=== PATIENT | male | born 1970 | race Caucasian/White ===

== ENCOUNTER 2016-09-17 10:10 | Observation (INO) ==
[2016-09-17] MEDS ORDERED: Ondansetron 4 MG/2 ML VIAL IVP ONE (10:22)
[2016-09-17] MEDS ORDERED: Aspirin 81 MG TAB.CHEW PO ONE (10:22)
[2016-09-17] MEDS ORDERED: 0.9 % Sodium Chloride 500 ML IVC ONE (10:22)
[2016-09-17] MEDS: Nitroglycerin 0.4 MG TAB.SUBL SL ONE ×2 (10:29→11:02)
[2016-09-17 10:36] LABS: Basophils % 0.3 %; Eosinophils % 0.2 %; Hematocrit 44.7 % (37.5-50.1); Hemoglobin 15.5 g/dL (12.9-16.9); Immature Granulocytes % 0.3 % (0-4); Immature Platelets 2.8 % (1.1-6.1); Lymphocytes # 1.9 K/mcL (0.6-4.6); Mean Corpuscular HGB Conc 34.7 g/dL (31.6-35.5); Mean Corpuscular Hemoglobin 32.4 pg (28.0-33.3); Mean Corpuscular Volume 93.3 fL (83.0-100.0); Mean Platelet Volume 9.6 fL (9.4-12.4); Monocytes # 0.7 K/mcL (0.0-1.3); Monocytes % 5.1 %; Neutrophils # 10.2 K/mcL (1.6-8.9); Platelet Count 289 K/mcL (140-400); Red Blood Count 4.79 M/mcL (4.19-5.50); Red Cell Distribution Width 12.8 % (11.5-14.5); Segmented Neutrophils % 79.1 %
[2016-09-17 10:47] LABS: INR 1.1; Prothrombin Time 11.5 Seconds (9.4-12.1)
[2016-09-17 10:50] LABS: Activated Partial Thrombo Time 33.5 Seconds (26.0-36.0)
[2016-09-17 10:59] LABS: BUN/Creatinine Ratio 17 (6-26); Blood Urea Nitrogen 16 mg/dL (8-26); Calcium 10.4 mg/dL (8.6-10.8); Carbon Dioxide 26 mEq/L (19-29); Chloride 104 mEq/L (98-109); Glucose 222 mg/dL (70-99); Osmolality,Calculated 302 (280-300); Potassium 4.2 mEq/L (3.5-4.5); Sodium 142 mEq/L (136-145); eGFR For African Americans > 60 (> 60); eGFR For Non-African Americans > 60 (> 60)
--- NOTE | 2016-09-17 12:43 | Emergency Department Note ---
Disposition Clinical Impression: Chest pain of unknown etiology Disposition: Admitted As Inpatient Condition: Fair Time of Disposition: 12:00 Chest Pain HPI - General Chief Complaint: ED Chest Pain Stated Complaint: chest pain Time Seen by Provider: 09/17/16 10:27 Source: patient Limitations: no limitations Vital Signs Reviewed: Yes Nursing Notes Reviewed: Yes - History of Present Illness HPI Narrative: Patient is 46-year-old male. He was history of chest pain requiring and heart catheterization without the point of stents 3 years ago. Patient states he has onset of chest pain acute sudden onset 4 hours ago left-sided chest radiation down left arm. Patient states pain is 8 out of 10 last for an hour. Patient states that it slowly decreased over the next 3 hours 4 out of 10. It is currently 4 out of 10. Patient states that nothing has made it better. Movement makes it worse. Admits to onset of cold diaphoresis at the time of initial onset and nausea without vomiting Patient smokes half pack a day, denies alcohol use and illicit drug use. Has a history of diabetes Onset (ago): hour(s) Severity scale (1-10): 8 - Related Data Home Medications Medication Instructions Recorded Confirmed Metformin [Glucophage] 500 mg PO DAILY 09/17/16 09/17/16 Previous Rx's Medication Instructions Recorded Omeprazole [PriLOSEC] 40 mg PO DAILY #30 capsule. 11/18/15 Allergies Allergy/AdvReac Type Severity Reaction Status Date / Time guaifenesin [From Robitussin] AdvReac Hives Verified 09/26/15 15:25 All systems ED: reviewed and negative except as stated. Constitutional: Denies: fever, chills Eyes: Denies: vision change ENT ED: Denies: throat pain, congestion Cardiovascular: Reports: chest pain. Denies: palpitations, syncope Respiratory: Denies: cough, dyspnea, wheezes Gastrointestinal: Reports: nausea. Denies: abdominal pain, vomiting, diarrhea Musculoskeletal: Denies: back pain, neck pain Neurological: Denies: headache, weakness Psychiatric: Reports: anxiety Endocrine: Reports: fatigue Chest Pain PMH - Past Medical History Medical history: Reports: diabetes, other Surgical history: Reports: appendectomy, cholecystectomy Psychiatric history: Reports: no psych history - Social History Smoking Status: Current every day smoker Alcohol use: Reports: none Drug use: Reports: marijuana Physical Exam - General Limitations: no limitations General appearance: alert - Head Head exam: atraumatic, normocephalic, normal inspection - Eye Eye exam: Present: normal appearance, PERRL, EOMI. Absent: scleral icterus, conjunctival injection - ENT ENT exam: normal exam, normal oropharynx, mucous membranes moist - Neck Neck exam: Present: normal inspection, full ROM, trachea midline. Absent: tenderness, meningismus - Chest Chest inspection: Present: normal inspection, symmetric chest wall rise, tenderness (Left Sided chest wall tenderness to palpation) - Respiratory Respiratory exam: Present: normal lung sounds bilaterally, respiratory distress. Absent: wheezes - Cardiovascular Cardiovascular exam: Present: regular rate, normal rhythm - Abdominal Exam Abdominal exam: Present: soft, Non-Tender, normal bowel sounds. Absent: tenderness, distention, guarding, rebound, rigidity - Extremities Exam Extremities exam: Present: normal inspection, full ROM, tenderness, normal capillary refill. Absent: pedal edema, joint swelling, calf tenderness - Expanded Lower Extremity Exam Lower leg exam: Present: normal inspection, full ROM. Absent: tenderness, swelling, palpable cord, Homans' sign - Back Exam Back exam: Present: normal inspection, full ROM. Absent: tenderness, CVA tenderness (R), CVA tenderness (L) - Neurological Exam Neurological exam: Present: alert, oriented X3, CN II-XII intact - Skin Skin exam: Present: warm, dry, intact, normal color. Absent: diaphoresis Course - Reevaluation(s) Reevaluation #1: Patient concerning signs and symptoms of ACS/PA, PE, aortic dissection, pneumonia. Patient does have some chest wall tenderness reproducible to palpation and history of heavy lifting which since they may be a component of musculoskeletal information. We will try to rule out ACS/PA. Patient has a history of diabetes and prior history of chest pain requiring heart catheterization. Patient states pain is today is equivalent to that. PE is low suspicion secondary to patient's heart rate is less than 100, no history of hemoptysis/DVT or prior PE, no recent trauma or surgery, no hemoptysis, age less than 50. Under PERC rules patient is at very low risk for PE. However this does not completely rule it out. Plan: CBC, BMP, troponin, EKG, chest x-ray admit for cardiac workup. Time: 10:23 Reevaluation #2: Patient has not had elevation of his WBC at 12.9, and patient has an elevated blood dose of 302. Respirations last are unremarkable. Patient's chest x-ray shows discoid atelectasis at the left lung base but no other acute cardiopulmonary disease. EKG showed normal sinus rhythm and no ischemic signs. Patient's heart score equals 1 Patient received sublingual nitroglycerin 3 which reduced patient's pain symptoms 0/10. Patient is currently comfortable. At this time recommended patient be admitted observation and for cardiac evaluation if necessary. Patient understands and agrees to treatment plan Time: 11:30 - Consultations Consultation #1: Dr. Jameson the hospitalist has accepted the patient for admission Time: 12:00 Vital Signs Temperature 97.3 F L 09/17/16 10:13 Pulse Rate 86 09/17/16 10:13 Respiratory Rate 18 09/17/16 10:13 Blood Pressure 144/72 09/17/16 10:13 O2 Sat by Pulse Oximetry 100 09/17/16 10:13 Temperature 98.1 F 09/17/16 18:43 Pulse Rate 74 09/17/16 18:43 Respiratory Rate 16 09/17/16 18:43 Blood Pressure 106/67 09/17/16 18:43 O2 Sat by Pulse Oximetry 99 09/17/16 18:43 Oxygen Delivery Oxygen Delivery Room Air Chest Pain - Lab Data Lab results reviewed: Yes I reviewed the patient's lab results. Lab results narrative: Short CBC 09/17/16 Range/Units 10:25 WBC 12.9 H (4.3-11.1) K/mcL Hgb 15.5 (12.9-16.9) g/dL Hct 44.7 (37.5-50.1) % Plt Count 289 (140-400) K/mcL Neutrophils # 10.2 H (1.6-8.9) K/mcL BMP 09/17/16 Range/Units 10:33 Sodium 142 (136-145) mEq/L Potassium 4.2 (3.5-4.5) mEq/L Chloride 104 (98-109) mEq/L Carbon Dioxide 26 (19-29) mEq/L BUN 16 (8-26) mg/dL Creatinine 0.96 (0.72-1.25) mg/dL Glucose 222 H (70-99) mg/dL Calcium 10.4 (8.6-10.8) mg/dL Cardiac Enzymes 09/17/16 09/17/16 Range/Units 15:51 10:33 Troponin I 0.00 0.00 (0-0.03) ng/mL Result diagrams: 09/17/16 10:25 09/17/16 10:33 Lab Results 09/17/16 09/17/16 09/17/16 Range/Units 10:23 10:23 10:25 WBC 12.9 H (4.3-11.1) K/mcL RBC 4.79 (4.19-5.50) M/mcL Hgb 15.5 (12.9-16.9) g/dL Hct 44.7 (37.5-50.1) % MCV 93.3 (83.0-100.0) fL MCH 32.4 (28.0-33.3) pg MCHC 34.7 (31.6-35.5) g/dL RDW 12.8 (11.5-14.5) % Plt Count 289 (140-400) K/mcL MPV 9.6 (9.4-12.4) fL Immature Gran % 0.3 (0-4) % Seg Neutrophils % 79.1 % Lymphocytes % 15.0 % Monocytes % 5.1 % Eosinophils % 0.2 % Basophils % 0.3 % Neutrophils # 10.2 H (1.6-8.9) K/mcL Lymphocytes # 1.9 (0.6-4.6) K/mcL Monocytes # 0.7 (0.0-1.3) K/mcL Eosinophils # 0.0 (0.0-0.6) K/mcL Basophils # 0.0 (0.0-0.2) K/mcL Immature Plt Fraction 2.8 (1.1-6.1) % PT 11.5 (9.4-12.1) Seconds INR 1.1 APTT 33.5 (26.0-36.0) Seconds D-Dimer 227 (0-500) ng/mLFEU Sodium (136-145) mEq/L Potassium (3.5-4.5) mEq/L Chloride (98-109) mEq/L Carbon Dioxide (19-29) mEq/L BUN (8-26) mg/dL Creatinine (0.72-1.25) mg/dL Est GFR ( Amer) (> 60) Est GFR (Non-Af Amer) (> 60) BUN/Creatinine Ratio (6-26) Glucose (70-99) mg/dL Calculated Osmolality (280-300) Calcium (8.6-10.8) mg/dL Troponin I (0-0.03) ng/mL B-Natriuretic Peptide 27 (0-100) pg/mL 09/17/16 09/17/16 Range/Units 10:33 10:33 WBC (4.3-11.1) K/mcL RBC (4.19-5.50) M/mcL Hgb (12.9-16.9) g/dL Hct (37.5-50.1) % MCV (83.0-100.0) fL MCH (28.0-33.3) pg MCHC (31.6-35.5) g/dL RDW (11.5-14.5) % Plt Count (140-400) K/mcL MPV (9.4-12.4) fL Immature Gran % (0-4) % Seg Neutrophils % % Lymphocytes % % Monocytes % % Eosinophils % % Basophils % % Neutrophils # (1.6-8.9) K/mcL Lymphocytes # (0.6-4.6) K/mcL Monocytes # (0.0-1.3) K/mcL Eosinophils # (0.0-0.6) K/mcL Basophils # (0.0-0.2) K/mcL Immature Plt Fraction (1.1-6.1) % PT (9.4-12.1) Seconds INR APTT (26.0-36.0) Seconds D-Dimer (0-500) ng/mLFEU Sodium 142 (136-145) mEq/L Potassium 4.2 (3.5-4.5) mEq/L Chloride 104 (98-109) mEq/L Carbon Dioxide 26 (19-29) mEq/L BUN 16 (8-26) mg/dL Creatinine 0.96 (0.72-1.25) mg/dL Est GFR ( Amer) > 60 (> 60) Est GFR (Non-Af Amer) > 60 (> 60) BUN/Creatinine Ratio 17 (6-26) Glucose 222 H (70-99) mg/dL Calculated Osmolality 302 H (280-300) Calcium 10.4 (8.6-10.8) mg/dL Troponin I 0.00 (0-0.03) ng/mL B-Natriuretic Peptide (0-100) pg/mL - Radiology Data Radiology results reviewed: Yes I reviewed the patient's radiology results. Chest X-Ray 09/17/16 10:23 IMPRESSION: Discoid atelectasis at the left lung base. No acute cardiopulmonary disease. D/ / Sorin Griffin MD / Sorin Griffin MD Interpreting Provider: Sorin Griffin MD - EKG Data EKG attestation: Yes I reviewed and interpreted this EKG. EKG results narrative: EKG dated 09/17/2016 at 1020 hrs. shows sinus rhythm at a rate of 88 beats. No acute areas of ischemia, QT prolongation or QRS widening. EKG does look patient 's having incomplete right bundle not seen on previous EKG that shows a sinus rhythm at 89 beats a minute dated 06/04/2016 which shows no sign of ischemia. Heart Score - Score History: Slightly Suspicious EKG: Normal Age: Less than 45 Risk Factors: 1-2 risk factors Troponin: Less than normal limit HEART Score Total: 1 Critical Care Time Critical Care Time: Yes Total Critical Care Time: 35 Attestation: Patient was seen with resident physician. I reviewed the history, physical, assessment and plan, and agree with the findings. I also personally evaluated this patient and had [id number] time with this patient. 46-year-old male presents to the emergency Department chief complaint of chest pain. Pain started an hour or so prior to arrival was sided of the chest and radiating down the arm. Was a pressure sensation. Was similar in nature to the pain he experienced proximal to 3 years ago when he had a heart attack requiring stents. Patient has not had any nausea or vomiting with this. On examination ENT is unremarkable vital signs are stable heart and lungs are both normal. Abdomen soft and nontender. Extremities are unremarkable. Neurologically patient is intact. EKG shows no acute changes. Labs are unremarkable troponin was negative. Chest x-ray shows no acute abnormalities. Patient's symptoms are concerning for cardiac pain however patient will require admission to the hospital. Managing patient's chest pain required 35 minutes of critical care time. Patient's pain was resolved with 3 sublingual nitroglycerin. He remained hemodynamically stable. The hospitalist was notified as the need for admission and admission was arranged. I agree with the resident physician assessment and plan.
--- NOTE | 2016-09-17 12:55 | Event Note ---
Date of Encounter: 09/17/16 Time of Encounter: 12:52 Patient seen and examined with nurse practitioner. Briefly 46-year-old male with a history of diabetes mellitus type 2 on metformin, and angiogram performed 4 years ago showing small vessel disease presents the emergency room today with chest pain. Some improvement with sublingual nitroglycerin. EKG shows no ischemic changes. Initial troponin normal. D-dimer is normal. Will check serial cardiac markers. Continuous telemetry monitoring. Cardiology consultation
[2016-09-17] MEDS ORDERED: Ondansetron ODT 4 MG TAB.RAPDIS SL PRN (13:15)
[2016-09-17] MEDS ORDERED: Naloxone 0.4 MG/ML INJ IVP PRN (13:15)
[2016-09-17] MEDS ORDERED: Nitroglycerin 0.4 MG TAB.SUBL SL PRN (13:22)
--- NOTE | 2016-09-17 13:28 | Internal Med History&Physical ---
Date of Encounter: 09/17/16 Time of Encounter: 13:24 Assessment and Plan (1) Chest pain Current visit: Yes Status: Acute Patient reports sudden onset of diaphoresis and severe left sided chest pain accompanied by nausea and left arm tingling. The chest pain was somewhat relieved by nitro. Risk factors of type 2 diabetes and smoking. He reports Cardiac cath 4 years ago showed small vessel disease. EKG showed sinus rhythm with no ST elevations or depressions. Initial troponin negative at 0.00 Continuous hospital monitor Serial troponins consult cardiology. Qualifiers: Chest pain type: precordial pain Qualified Code(s): R07.2 - Precordial pain (2) Type 2 diabetes mellitus Current visit: Yes Status: Acute Check Hgb A1c diabetic, heart healthy diet hold metformin check blood sugars ACHS sliding scale correction dose ACHS hypoglycemic protocol. 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 Discussed consequences of smoking and encouraged smoking cessation. Nicotine patch ordered smoking cessation education ordered. (4) DVT prophylaxis Current visit: Yes Status: Acute anti-embolic stockings lovenox SQ daily Internal Medicine - H&P: HPI Chief complaint: chest pain Admitted From: Emergency Dept Plans for Post Hospital Care: Home History of present illness: Mr. Saleh is a 46 year old male with history of type 2 diabetes, GERD presented to the emergency department today with complaints of sudden onset of chest pain. He reports he was at work and all of a sudden he broke out in a cold sweat and had sudden sharp pain in his left chest radiating to his left shoulder , the pain was constant and described as sharp, he also had nausea and vomited 3 times, and had left arm numbness and tingling. The pain was somewhat relieved by nitroglycerin in the ER. He reports mild lightheadedness, but denies any headache, palpitations, shortness of breath, recent fever, chills, abdominal pain, diarrhea. Of note, he reports he had a cardiac catheter about 4 years ago at [place] which showed small vessel disease, he reports he was started on a medication at that time but has not continued to take that medication. Evaluation in the emergency department included a troponin which was negative at 0.0, chest x-ray showed discoid atelectasis in left lung base but no acute cardiopulmonary disease, EKG showed sinus rhythm heart rate of [address] elevations or depressions. On exam, patient is alert and oriented, in no acute distress. Heart has regular rate and rhythm, lungs are clear bilaterally to auscultation. Past Med Surg Social Fam HX - Past Medical History Medical history: diabetes, GERD, kidney stones, other Psychiatric history: no psych history - Past Surgical History Surgical History: appendectomy, cholecystectomy, orthopedic, other - Social History Smoking Status: Current every day smoker (20 pack year history) Smokeless Tobacco Status: No Alcohol use: none Drug use: marijuana - Family History Mother Living Status: Still Living Hx Family Cardiac Disorders: Yes (HTN, MURMUR) Hx Family Respiratory Disorders: No Hx Family Cancer: No Hx Family GI Disorders: No Hx Family Endocrine Disorder: Yes (DIABETES) Hx Family Neuromuscular Disorders: No Hx Family Neurologic Disorders: No Hx Family HEENT Disorders: No Hx Family Autoimmune Disorders: No Father Living Status: Hx Family Cardiac Disorders: No Hx Family Respiratory Disorders: No Hx Family Cancer: No Hx Family GI Disorders: No Hx Family Endocrine Disorder: No Hx Family Neuromuscular Disorders: No Hx Family Neurologic Disorders: No Hx Family HEENT Disorders: No Hx Family Autoimmune Disorders: No Internal Medicine - H&P: Meds Omeprazole [PriLOSEC] 40 mg PO DAILY #30 capsule. 11/18/15 [Rx] Metformin [Glucophage] 500 mg PO DAILY 09/17/16 [History] Allergies guaifenesin [From Robitussin] Adverse Reaction (Verified 09/26/15 15:25) Hives All Systems PM: A 10-system review of systems was performed and is negative for pertinent findings except as documented above in the HPI. - Constitutional Constitutional: no chills, no fever(s), no night sweats - EENT Eyes: no change in vision, no discharge, no pain, no photophobia Ears: no ear discharge, no ear pain, no tinnitus Nose, mouth and throat: no dysphagia, no nasal discharge, no neck pain, no sore throat - Cardiovascular Cardiovascular ROS IM: chest pain, diaphoresis, lightheadedness, no dyspnea, no palpitations, no syncope - Respiratory Respiratory: no cough, no dyspnea, no wheezing, no excessive phlegm production - Gastrointestinal Gastrointestinal: nausea, vomiting, no abdominal pain, no diarrhea, no hematemesis, no hematochezia, no melena - Musculoskeletal Musculoskeletal ROS IM: numbness (left arm), tingling (left arm) - Integumentary Integumentary IM: no rash, no unusual bruising - Neurological Neurological ROS: numbness (left arm), tingling (left arm), no confusion, no convulsions, no focal weakness, no tremor(s) - Hematologic/Lymphatic Hematologic/Lymphatic: no easy bruising - Constitutional Vitals: Temp Pulse Resp BP Pulse Ox 97.3 F L 58 12 111/68 100 09/17/16 12:45 09/17/16 12:45 09/17/16 12:45 09/17/16 12:45 09/17/16 12:45 General appearance: Present: A&O X 3, pleasant, no acute distress - Head Head exam: Present: atraumatic, normocephalic - Eye Eye exam: Present: PERRL, conjuntiva pink, sclera anicteric Pupils: Present: PERRL - Neck Neck exam general surgery: Present: supple, trachea midline. Absent: lymphadenopathy - Respiratory Respiratory exam: Present: CTAB. Absent: accessory muscle use, rales, rhonchi, wheezes - Cardiovascular Cardiovascular exam: Present: RRR, +S1, +S2. Absent: diastolic murmur, gallop, rubs, systolic murmur - GI/Abdominal GI/Abdominal exam: Present: normal bowel sounds, soft, no peritoneal signs. Absent: distended, tenderness - Extremities Exam Extremities exam: Present: warm, radial pulses palpable and symetrical. Absent : calf tenderness, cyanotic, pedal edema - Neurological Exam Neurological exam: Present: CN II-XII intact, oriented X3, no focal deficits. Absent: facial droop, speech deficit - Skin Skin exam: Present: dry, intact Internal Med - H&P Results - Labs CBC & Chem 7: 09/17/16 10:25 09/17/16 10:33 Labs: All Lab Results (24 Hours) 09/17/16 09/17/16 09/17/16 Range/Units 10:23 10:23 10:25 WBC 12.9 H (4.3-11.1) K/mcL RBC 4.79 (4.19-5.50) M/mcL Hgb 15.5 (12.9-16.9) g/dL Hct 44.7 (37.5-50.1) % MCV 93.3 (83.0-100.0) fL MCH 32.4 (28.0-33.3) pg MCHC 34.7 (31.6-35.5) g/dL RDW 12.8 (11.5-14.5) % Plt Count 289 (140-400) K/mcL MPV 9.6 (9.4-12.4) fL Immature Gran % 0.3 (0-4) % Seg Neutrophils % 79.1 % Lymphocytes % 15.0 % Monocytes % 5.1 % Eosinophils % 0.2 % Basophils % 0.3 % Neutrophils # 10.2 H (1.6-8.9) K/mcL Lymphocytes # 1.9 (0.6-4.6) K/mcL Monocytes # 0.7 (0.0-1.3) K/mcL Eosinophils # 0.0 (0.0-0.6) K/mcL Basophils # 0.0 (0.0-0.2) K/mcL Immature Plt Fraction 2.8 (1.1-6.1) % PT 11.5 (9.4-12.1) Seconds INR 1.1 APTT 33.5 (26.0-36.0) Seconds D-Dimer 227 (0-500) ng/mLFEU Sodium (136-145) mEq/L Potassium (3.5-4.5) mEq/L Chloride (98-109) mEq/L Carbon Dioxide (19-29) mEq/L BUN (8-26) mg/dL Creatinine (0.72-1.25) mg/dL Est GFR ( Amer) (> 60) Est GFR (Non-Af Amer) (> 60) BUN/Creatinine Ratio (6-26) Glucose (70-99) mg/dL Calculated Osmolality (280-300) Calcium (8.6-10.8) mg/dL Troponin I (0-0.03) ng/mL B-Natriuretic Peptide 27 (0-100) pg/mL 09/17/16 09/17/16 Range/Units 10:33 10:33 WBC (4.3-11.1) K/mcL RBC (4.19-5.50) M/mcL Hgb (12.9-16.9) g/dL Hct (37.5-50.1) % MCV (83.0-100.0) fL MCH (28.0-33.3) pg MCHC (31.6-35.5) g/dL RDW (11.5-14.5) % Plt Count (140-400) K/mcL MPV (9.4-12.4) fL Immature Gran % (0-4) % Seg Neutrophils % % Lymphocytes % % Monocytes % % Eosinophils % % Basophils % % Neutrophils # (1.6-8.9) K/mcL Lymphocytes # (0.6-4.6) K/mcL Monocytes # (0.0-1.3) K/mcL Eosinophils # (0.0-0.6) K/mcL Basophils # (0.0-0.2) K/mcL Immature Plt Fraction (1.1-6.1) % PT (9.4-12.1) Seconds INR APTT (26.0-36.0) Seconds D-Dimer (0-500) ng/mLFEU Sodium 142 (136-145) mEq/L Potassium 4.2 (3.5-4.5) mEq/L Chloride 104 (98-109) mEq/L Carbon Dioxide 26 (19-29) mEq/L BUN 16 (8-26) mg/dL Creatinine 0.96 (0.72-1.25) mg/dL Est GFR ( Amer) > 60 (> 60) Est GFR (Non-Af Amer) > 60 (> 60) BUN/Creatinine Ratio 17 (6-26) Glucose 222 H (70-99) mg/dL Calculated Osmolality 302 H (280-300) Calcium 10.4 (8.6-10.8) mg/dL Troponin I 0.00 (0-0.03) ng/mL B-Natriuretic Peptide (0-100) pg/mL - Diagnostic Studies Chest x-ray Additional comments: Chest X-Ray 09/17/16 10:23 IMPRESSION: Discoid atelectasis at the left lung base. No acute cardiopulmonary disease. D/ / Sorin Griffin MD / Sorin Griffin MD Interpreting Provider: Sorin Griffin MD
[2016-09-17] MEDS ORDERED: *HR* Dextrose 50 % in Water (Syg) 50 ML SYRINGE IVP PRN (13:32)
[2016-09-17] MEDS ORDERED: Dextrose Gel 15 GM PO PRN ×2 (13:32)
[2016-09-17] MEDS ORDERED: D5% in Water 1,000 ML IVC PRN (13:32)
--- NOTE | 2016-09-17 13:43 | Cardiology Consult Note ---
Date of Encounter: 09/17/16 Time of Encounter: 13:39 Assessment and Plan Discussion w patient/family: 1 Chest pain - some concerning and some atypical features. 2. Small vessel disease per report from the patient based on testing ~ 4 years ago. Will need Aggressive risk factor modification, standard CAD meds at d/c ( Statin, BB, at d/c) Will get an Echo and Exercise nuclear to assess if remainder of work up remains unremarkable. Would also benefit from empiric antianginals - Imdur 30 daily (would start after stress) 3. Tobacco use - counselled x > 3 minutes on the hazards tot he CV and Pulm systems. Cessation strongly encouraged. 4. Diabetes. - Per IM The assessment and plan as outlined above was discussed with the patient and/or family members who expressed understanding and agreement. All questions were answered. Thank you for involving us in the care of your patient. Please call with any questions. History of Present Illness Consult date: 09/17/16 Requesting physician: Radha Chase Consult reason: chest pain Chief complaint: same History of present illness: Mr. Saleh is a 46 year old male with a previously diagnosed small vessel disease - s/p cath ~ 4 years ago in [place], lost to CV follow up x 2-3 years. He has largely been asx over te past few years. Previously on Anti-anginals - including Ranexa which he weaned himself off of due to lack of sxs. He presents with ~ 1 day h/o left anterior chest pain, sharp and pressure like - similar to his previous anginal type pain. Associated with some SOB, diaphoresis and nausea. Radiated to his left arm. No clear exacerbating factors. Relieved/improved with NTG Denies any other sxs at present. He continues to smoke. Past Med Surg Social Fam HX - Past Medical History Medical history: diabetes, other Psychiatric history: no psych history - Past Surgical History Surgical History: appendectomy, cholecystectomy - Social History Smoking Status: Current every day smoker Smokeless Tobacco Status: No Alcohol use: none Drug use: marijuana - Family History Mother Living Status: Still Living Hx Family Cardiac Disorders: Yes (HTN, MURMUR) Hx Family Respiratory Disorders: No Hx Family Cancer: No Hx Family GI Disorders: No Hx Family Endocrine Disorder: Yes (DIABETES) Hx Family Neuromuscular Disorders: No Hx Family Neurologic Disorders: No Hx Family HEENT Disorders: No Hx Family Autoimmune Disorders: No Father Living Status: Hx Family Cardiac Disorders: No Hx Family Respiratory Disorders: No Hx Family Cancer: No Hx Family GI Disorders: No Hx Family Endocrine Disorder: No Hx Family Neuromuscular Disorders: No Hx Family Neurologic Disorders: No Hx Family HEENT Disorders: No Hx Family Autoimmune Disorders: No Medications and Allergies Omeprazole [PriLOSEC] 40 mg PO DAILY #30 capsule. 11/18/15 [Rx] Metformin [Glucophage] 500 mg PO DAILY 09/17/16 [History] Allergies guaifenesin [From Robitussin] Adverse Reaction (Verified 09/26/15 15:25) Hives All Systems Review: A 10-system review of systems was performed and is negative for pertinent findings except as documented above in the HPI. - Cardiovascular Cardiovascular: chest pain at rest, diaphoresis, dyspnea at rest, radiating jaw , neck or arm pain - Respiratory Respiratory: dyspnea Physical Examination Vital Signs, Last 4 Hours Temp Pulse Resp BP Pulse Ox 09/17/16 12:45 97.3 F L 58 12 111/68 100 09/17/16 12:31 18 105/86 General: Conversant, No Apparent Distress HEENT: Atraumatic, Mucus Membranes Moist Neck: No JVD, Normal carotid pulses Cardiac: Reg Rate and Rhythm, No Murmur Lungs: Normal Breath Sounds Neuro: Alert and responsive, No focal deficits noted Abdomen: Soft, Non-Tender Skin: No rashes noted on visualized skin Musculoskeletal: Other (minimal tenderness to palpation of the left chest - not able to reproduce sxs. ) Extremities: No Edema, Normal Pulses Results 09/17/16 10:25 09/17/16 10:33 - Imaging and Cardiology Chest Xray: report reviewed - EKG Interpretation EKG results cardiology: personally reviewed, normal ECG Consult Discharge Plan - Plan Referrals: NO,PCP [Primary Care Provider] -
[2016-09-17] MEDS: Nicotine 21 MG PATCH.TD24 TD SCH (14:55)
[2016-09-17] MEDS: Insulin LISPRO 300 UNITS/3 ML VIAL SQ SCH ×3 (15:02→21:03)
[2016-09-17] MEDS: Acetaminophen 325 MG TABLET PO PRN (20:10)
[2016-09-18] MEDS: *HR* Enoxaparin 40 MG/0.4 ML SYRINGE SQ SCH (04:22)
[2016-09-18 04:50] LABS: Basophils % 0.4 %; Eosinophils # 0.2 K/mcL (0.0-0.6); Eosinophils % 1.9 %; Immature Granulocytes % 0.4 % (0-4); Lymphocytes # 2.3 K/mcL (0.6-4.6); Lymphocytes % 27.4 %; Mean Corpuscular HGB Conc 33.3 g/dL (31.6-35.5); Mean Corpuscular Hemoglobin 31.9 pg (28.0-33.3); Mean Corpuscular Volume 95.6 fL (83.0-100.0); Mean Platelet Volume 10.1 fL (9.4-12.4); Monocytes # 0.6 K/mcL (0.0-1.3); Monocytes % 7.1 %; Neutrophils # 5.2 K/mcL (1.6-8.9); Platelet Count 206 K/mcL (140-400); Red Blood Count 4.08 M/mcL (4.19-5.50); Red Cell Distribution Width 13.1 % (11.5-14.5); Segmented Neutrophils % 62.8 %
[2016-09-18 05:00] LABS: BUN/Creatinine Ratio 22 (6-26); Blood Urea Nitrogen 21 mg/dL (8-26); Calcium 9.1 mg/dL (8.6-10.8); Carbon Dioxide 24 mEq/L (19-29); Chloride 104 mEq/L (98-109); Glucose 181 mg/dL (70-99); Osmolality,Calculated 294 (280-300); Potassium 4.6 mEq/L (3.5-4.5); Sodium 138 mEq/L (136-145); eGFR For African Americans > 60 (> 60); eGFR For Non-African Americans > 60 (> 60)
--- NOTE | 2016-09-18 10:42 | Nuclear Medicine Stress Report ---
Exercise Nuclear Stress Name: Andrea Saleh Date of Study: 09/18/2016 Date: 1970 Ht: 71.0 in Medical Record#: [id number] Age: 46 Wt: 203.0 lb Gender: Male Order #: [id number] Location: [facility] Room: [facility] Supervising Provider: Keith Vu CNP Reading Physician: Jesus Garcia MD, [facility] Ordering Physician: Keith Vu CNP Primary Care Physician: None Stress Technologist: Thania Villalobos SEWING SUPERVISOR,[facility] Supervisor Pastry: Manpreet Davis Indications: Chest Pain Impression: Perfusion imaging was positive for ischemia. Large size, partially reversible moderate-severely intense basal-mid lateral defect consistent with ischemia. Exercise ECG was negative for ischemia. Exercise capacity was average. Normal hemodynamic response. No arrhythmias noted with stress. Gated EF = 48%. There is no evidence of TID. Ordering team notified History: Diabetes History of Smoking Stress Test Summary: Stress Test Type: Treadmill Protocol: Jesus Baseline Information: Initial Heart Rate: 68 Blood Pressure: 102/60 Stress Information: Stress Time: 9 min 30 sec Test Terminated Due to (primary): Fatigue Maximum Blood Pressure: 132/64 Maximum Heart Rate: 156 Percent Maximum Heart Rate Achieved: 89 Double Product: 21811 METS Reached: 10.1 Symptoms: Fatigue Nuclear Summary: SPECT myocardial perfusion imaging using Tc99m Sestamibi given intravenously was performed at rest and following cardiac stress testing. The resting images were obtained following initial dose of 10.7 mCi. Following stress an additional dose of 33.7 mCi was given at peak exercise or 30 seconds post regadenoson infusion. Medication Given: Time Medication Dose Units Route Findings: Stress Note * Resting ECG demonstrated normal sinus rhythm. * No baseline arrhythmias were noted. * No arrhythmias were noted during stress. * Patient had no chest pain during stress. * Exercise ECG is negative for ischemia. Study Quality * Study quality is average. Hemodynamic responses * Normal hemodynamic responses to exercise. Gated EF % * Gated EF = 48%. Left Ventricle * The left ventricle is not dilated. Motion * Mild basal inferolateral wall hypokinesis. * Severe mid inferolateral wall hypokinesis. * Severe inferolateral wall hypokinesis. * Mildly decreased mid-inferolateral wall thickening. TID * No evidence of transient ischemic dilatation. Inferior Perfusion Rest * The basal inferolateral segment shows a mild reduction in perfusion. * The mid inferolateral segment shows a mild reduction in perfusion. Inferior Perfusion Stress * The basal inferolateral segment shows a severe reduction in perfusion. * The mid inferolateral segment shows a severe reduction in perfusion. NORMALS * All other wall motion normal. * All other segmental perfusion normal in stress. * All other segmental perfusion normal in rest. Updated by Jesus Garcia MD, FACC on 09/18/2016 10:33:19 AM electronically signed on 09/18/2016 10:36:24 AM with status of Final
--- NOTE | 2016-09-18 11:16 | Cardiology Progress Note ---
Date of Encounter: 09/18/16 Time of Encounter: 11:13 Assessment and Plan (1) Chest pain Current Visit: Yes Status: Acute Stress abnormal - NPO afer midnight Cath tomorrow Qualifiers: Chest pain type: precordial pain Qualified Code(s): R07.2 - Precordial pain Discussion w patient/family: 1 Chest pain - some concerning and some atypical features. Given abnormal Stress - recommend Angio. NPO after midnight - cath tomorrow - additional recs thereafter. 2. Small vessel disease per report from the patient based on testing ~ 4 years ago. Will need Aggressive risk factor modification, standard CAD meds at d/c ( Statin, BB, at d/c) Would also benefit from empiric antianginals - Imdur 30 daily (would start after stress) 3. Tobacco use - counselled x > 3 minutes on the hazards tot he CV and Pulm systems. Cessation strongly encouraged. 4. Diabetes. - Per IM The assessment and plan as outlined above was discussed with the patient and/or family members who expressed understanding and agreement. All questions were answered. Thank you for involving us in the care of your patient. Please call with any questions. Subjective Principal diagnosis: chest pain Interval history: Patient had a few more twinges of chest pain since yesterday - no other complaints Objective Vital Signs, Last 4 Hours Temp Pulse Resp BP Pulse Ox 09/18/16 10:53 98.0 F 93 18 127/81 95 General: Conversant, No Apparent Distress HEENT: Atraumatic, Mucus Membranes Moist Neck: No JVD, Normal carotid pulses Cardiac: Reg Rate and Rhythm, No Murmur Lungs: Normal Breath Sounds, No Wheeze, Rales, Rhonchi Neuro: Alert and responsive, No focal deficits noted Abdomen: Soft, Non-Tender Skin: No rashes noted on visualized skin Musculoskeletal: No Chest Wall Tenderness Extremities: No Clubbing, No Edema Results 09/18/16 03:42 09/18/16 03:42 Lab Results 09/17/16 09/17/16 09/18/16 15:51 22:10 03:42 WBC 8.3 Hgb 13.0 D Hct 39.0 Plt Count 206 Sodium Potassium Chloride Carbon Dioxide BUN Creatinine Glucose Calcium Troponin I 0.00 0.00 09/18/16 03:42 WBC Hgb Hct Plt Count Sodium 138 Potassium 4.6 H Chloride 104 Carbon Dioxide 24 BUN 21 Creatinine 0.95 Glucose 181 H Calcium 9.1 Troponin I - Imaging and Cardiology Stress Test: report reviewed (Abnormal - lateral ischemia - EF 48%) Consult Discharge Plan - Plan Instructions: Angina (ED), Chest Pain (ED) Referrals: NO,PCP [Primary Care Provider] -
[2016-09-18] MEDS: Insulin LISPRO 300 UNITS/3 ML VIAL SQ SCH ×4 (12:26→22:18)
[2016-09-18] MEDS: Nicotine 21 MG PATCH.TD24 TD SCH (12:29)
--- NOTE | 2016-09-18 13:00 | ECHO - Doppler Report ---
Echocardiogram Name: Andrea Saleh Date of Study: 09/18/2016 Date: 1970 Ht: 71.0 in Medical Record#: [id number] Age: 46 Wt: 203.0 lb Gender: Male BSA: 2.12 Order #: [id number] Location: [facility] Room #: 3B39 Reading Physician: Jesus Garcia MD, [facility] Energy Efficiency Finance Manager: Aurora Burns RVT Ordering Physician: Keith Vu CNP Primary Physician: None Indications: dizziness, Chest pain Impressions: LVEF 45-50%. Mild global left ventricular systolic dysfunction. No significant valvular dysfunction. Left Ventricular Wall Motion: Rest Echo Findings The apex, apical inferior, mid inferior, basal inferior, apical anterior, mid anterior, basal anterior, apical septal, mid inferior septal, basal inferior septal, apical lateral, mid anterior lateral, basal anterior lateral, mid anterior septal, mid inferior lateral, basal anterior septal and basal inferior lateral argueta were hypokinetic. Findings: Study Quality * Technically adequate exam. Right Ventricle * Normal right ventricular structure and function. Left Atrium * Normal left atrial size. Right Atrium * Normal right atrial size. Aortic Valve * Trileaflet aortic valve with normal function. Mitral Valve * Normal mitral valve structure and function. Interatrial Septum * No evidence of PFO by color Doppler. Aorta * Normally sized aortic root. Pericardium * The pericardium appears normal. ECG Findings * Sinus bradycardia. Tricuspid Valve * Trace tricuspid regurgitation. * No tricuspid stenosis. * Unable to estimate RVSP due to lack of TR jet. Pulmonic Valve * Pulmonic valve is not well visualized. * No pulmonic stenosis. * No pulmonic regurgitation. IVC * The IVC is dilated. * > 50% respiratory change Left Ventricle * LVEF 45-50%. * Indeterminate diastolic function. * Mild global left ventricular systolic dysfunction. History Diabetes Measurements: BP: 112/ 73 2D Normal Values RVIDd: 2.70 cm <2.7 cm IVSd: .90 cm 0.6 - 1.0 cm LVIDd: 5.10 cm 3.7 - 5.6 cm LVPWd: .90 cm 0.6 - 1.1 cm LVIDs: 4.10 cm 1.5 - 3.6 cm AO: 2.90 cm < 4.0 cm LA: 3.70 cm 2.0 - 4.0cm %FS: 19.60 cm >25 % LA volume: 82 Mitral Valve Peak E:1.12 m/sec Peak A:.43 m/sec E/A Ratio:2.6 Peak E' Lat Michael:12.3 cm/s Peak E' Med Michael:8.87 cm/s E/E' Lat Ratio:9.1 E/E' Med Ratio:12.6 Tricuspid Valve TV Regurg Peak Grad: 2.00mmHg TV Regurg Peak Michael: .64m/sec Updated by Jesus Garcia MD, [facility] on 09/18/2016 12:56:01 PM electronically signed on 09/18/2016 12:56:15 PM with status of Final Wall Motion Castaneda: 1=Normal, 2=Hypokinesis, 3=Akinesis, 4=Dyskinesis, 5=Aneurysmal, 6=Hyperkinetic, X=Not Visualized (Blank)=Missing
--- NOTE | 2016-09-18 17:20 | Internal Med Progress Note ---
Date of Encounter: 09/18/16 Time of Encounter: 15:00 - Assessment and plan (1) Chest pain Current Visit: Yes Status: Acute Assessment and plan: patient presents with left sided chest pain that he describes as similar to his prior anginas 4 years ago. echocardiogram showed LVEF 45-50%. stress test shows a large size, partially reversible moderate-severely intense basal-mid lateral defect consistent with ischemia. Appreciate cardiology input: plan for heart catheterization tomorrow. continue asa and statin. Qualifiers: Chest pain type: precordial pain Qualified Code(s): R07.2 - Precordial pain (2) CAD (coronary artery disease) Current Visit: Yes Status: Acute Assessment and plan: Per patient he had cardiac catheterization 4 years ago showing small vessel disease. He never follow up with doctor and stopped taking Ranexa. Qualifiers: Coronary Disease-Associated Artery/Lesion type: [place] artery [place] vs. transplanted heart: [place] heart Associated angina: without angina Qualified Code(s): I25.10 - Atherosclerotic heart disease of [place] coronary artery without angina pectoris (3) Type 2 diabetes mellitus Current Visit: Yes Status: Acute Assessment and plan: sliding scale insulin diabetic diet. Qualifiers: Diabetes mellitus complication status: without complication Diabetes mellitus half-way insulin use: without half-way use Qualified Code(s): E11.9 - Type 2 diabetes mellitus without complications (4) Smoker Current Visit: Yes Status: Acute - Subjective Interval history: patient has no chest pain. no shortness of breath. - Constitutional Vitals: Temp Pulse Resp BP Pulse Ox 97.8 F 76 17 91/58 97 09/18/16 14:38 09/18/16 14:38 09/18/16 14:38 09/18/16 14:38 09/18/16 14:38 General appearance: Present: A&O X 3, pleasant, no acute distress Internal Medicine: Result - Labs CBC & Chem 7: 09/18/16 03:42 09/18/16 03:42 Labs: Short CBC 09/18/16 Range/Units 03:42 WBC 8.3 (4.3-11.1) K/mcL Hgb 13.0 D (12.9-16.9) g/dL Hct 39.0 (37.5-50.1) % Plt Count 206 (140-400) K/mcL Neutrophils # 5.2 (1.6-8.9) K/mcL BMP 09/18/16 03:42 Sodium 138 Potassium 4.6 H Chloride 104 Carbon Dioxide 24 BUN 21 Creatinine 0.95 Glucose 181 H Calcium 9.1 Cardiac Enzymes 09/17/16 09/17/16 Range/Units 15:51 22:10 Troponin I 0.00 0.00 (0-0.03) ng/mL - ABG Interpretation ABG results: PT/INR, D-dimer PT 11.5 Seconds (9.4-12.1) 09/17/16 10:23 D-Dimer 227 ng/mLFEU (0-500) 09/17/16 10:23 Consult Discharge Plan - Plan Instructions: Angina (ED), Chest Pain (ED) Referrals: NO,PCP [Primary Care Provider] -
[2016-09-18] MEDS: Aspirin 81 MG TAB.CHEW PO SCH (17:53)
[2016-09-18] MEDS ORDERED: *HR* Ticagrelor 90 MG TABLET PO STA (18:18)
--- NOTE | 2016-09-18 20:18 | Electrocardiograph Report ---
[address] [address] Test Date: 2016-09-17 Pat Name: Andrea Saleh Department: 105 Room: 3B Gender: M [employer] Customer Service: MADELYN : 1970 Requested By: Aguila Reza Order Number: [id number] Reading MD: Jesus Garcia MD Measurements Intervals [place] Rate: 88 P: 59 HI: 109 QRS: 90 QRSD: 107 T: 55 QT: 358 QTc: 404 Interpretive Statements SINUS RHYTHM WITH SHORT HI INTERVAL INDETERMINATE AXIS Electronically Signed On 09-18-2016 20:16:13 EDT by Jesus Garcia MD
[2016-09-18] MEDS: Acetaminophen 325 MG TABLET PO PRN (22:16)
[2016-09-19 04:47] LABS: BUN/Creatinine Ratio 21 (6-26); Blood Urea Nitrogen 19 mg/dL (8-26); Carbon Dioxide 28 mEq/L (19-29); Chloride 102 mEq/L (98-109); Glucose 184 mg/dL (70-99); Osmolality,Calculated 293 (280-300); Potassium 4.1 mEq/L (3.5-4.5); Sodium 138 mEq/L (136-145); eGFR For African Americans > 60 (> 60); eGFR For Non-African Americans > 60 (> 60)
[2016-09-19] MEDS: *HR* Enoxaparin 40 MG/0.4 ML SYRINGE SQ SCH (06:04)
[2016-09-19] MEDS: Nicotine 21 MG PATCH.TD24 TD SCH (07:22)
[2016-09-19] MEDS: Insulin LISPRO 300 UNITS/3 ML VIAL SQ SCH ×4 (08:40→21:16)
[2016-09-19] MEDS: Aspirin 81 MG TAB.CHEW PO SCH (08:41)
[2016-09-19] MEDS ORDERED: *HR* Ticagrelor 90 MG TABLET PO ONE (09:00)
[2016-09-19] MEDS ORDERED: Verapamil 5 MG/2 ML VIAL ONE (15:24)
[2016-09-19] MEDS ORDERED: *HR* Heparin 10,000 UNIT/10 ML VIAL ONE (15:25)
[2016-09-19] MEDS ORDERED: Heparin 1,000 UNITS/500 mL NS 0 ML ONE (15:25)
[2016-09-19] MEDS ORDERED: Nitroglycerin 1,000 MCG/10 ML VIAL IV ONE (15:25)
[2016-09-19] MEDS ORDERED: 0.9 % Sodium Chloride 1,000 ML ONE (15:25)
--- NOTE | 2016-09-19 15:56 | Pre-Sedation Evaluation ---
Pre-sedation evaluation - Pre-sedation checklist Date of procedure: 09/19/16 Procedure: [facility] Recent Vitals: Last Vital Signs Temp 97.9 F 09/19/16 14:49 Pulse 57 09/19/16 14:49 Resp 16 09/19/16 14:49 BP 123/77 09/19/16 14:49 Pulse Ox 98 09/19/16 14:49 H&P (including ROS) documented in medical record: Yes Previous reaction to sedatives/anesthetics: Unknown Dietary Status: NPO after Midnight Dentition: No loose teeth or bridges ASA Classification *see protocol: CLASS II-Mild systemic disease Plan of Care: Pt appropriate candidate for procedure/moderate/conscious sedation , Risks/benefits of procedure/sedation discussed w/ patient/family
[2016-09-19] MEDS ORDERED: *HR* FentaNYL (PF) 100 MCG/2 ML VIAL ONE (16:00)
[2016-09-19] MEDS ORDERED: *HR* Midazolam HCl 2 MG/2 ML VIAL ONE ×2 (16:00→16:26)
--- NOTE | 2016-09-19 19:15 | Internal Med Progress Note ---
Date of Encounter: 09/19/16 Time of Encounter: 19:13 - Assessment and plan (1) Chest pain Current Visit: Yes Status: Acute Assessment and plan: patient presents with left sided chest pain that he describes as similar to his prior anginas 4 years ago. echocardiogram showed LVEF 45-50%. stress test shows a large size, partially reversible moderate-severely intense basal-mid lateral defect consistent with ischemia. Appreciate cardiology input: heart catheterization showing only small vessel disease. continue asa, toprol and statin. Qualifiers: Chest pain type: precordial pain Qualified Code(s): R07.2 - Precordial pain (2) CAD (coronary artery disease) Current Visit: Yes Status: Acute Assessment and plan: Per patient he had cardiac catheterization 4 years ago showing small vessel disease. He never follow up with doctor and stopped taking Ranexa. Qualifiers: Coronary Disease-Associated Artery/Lesion type: [place] artery [place] vs. transplanted heart: [place] heart Associated angina: without angina Qualified Code(s): I25.10 - Atherosclerotic heart disease of [place] coronary artery without angina pectoris (3) Type 2 diabetes mellitus Current Visit: Yes Status: Acute Assessment and plan: sliding scale insulin diabetic diet. Qualifiers: Diabetes mellitus complication status: without complication Diabetes mellitus parts counterman insulin use: without residential use Qualified Code(s): E11.9 - Type 2 diabetes mellitus without complications (4) Smoker Current Visit: Yes Status: Acute - Subjective Interval history: patient had LHC this afternoon showing small vessel disease. - Constitutional Vitals: Temp Pulse Resp BP Pulse Ox 97.8 F 63 14 115/76 95 09/19/16 18:06 09/19/16 18:57 09/19/16 18:57 09/19/16 18:57 09/19/16 18:57 General appearance: Present: cooperative, A&O X 3, pleasant, no acute distress, answers questions appropriately - Respiratory Respiratory exam: Present: CTAB - Cardiovascular Cardiovascular exam: Present: RRR - GI/Abdominal GI/Abdominal exam: Present: normal bowel sounds, soft. Absent: distended, tenderness - Extremities Exam Extremities exam: Absent: pedal edema - Neurological Exam Neurological exam: Present: alert, oriented X3, no focal deficits, strengths equal and symetr throughout. Absent: facial droop, speech deficit - Skin Skin exam: Absent: rash Internal Medicine: Result - Labs CBC & Chem 7: 09/18/16 03:42 09/19/16 02:57 Labs: BMP 09/19/16 02:57 Sodium 138 Potassium 4.1 Chloride 102 Carbon Dioxide 28 BUN 19 Creatinine 0.92 Glucose 184 H Calcium 9.0 - ABG Interpretation ABG results: PT/INR, D-dimer PT 11.5 Seconds (9.4-12.1) 09/17/16 10:23 D-Dimer 227 ng/mLFEU (0-500) 09/17/16 10:23 Consult Discharge Plan - Plan Instructions: Angina (ED), Chest Pain (ED) Referrals: NO,PCP [Primary Care Provider] -
[2016-09-19] MEDS: *HR* Ticagrelor 90 MG TABLET PO SCH (21:15)
[2016-09-20] MEDS: *HR* Enoxaparin 40 MG/0.4 ML SYRINGE SQ SCH (05:49)
--- NOTE | 2016-09-20 08:39 | Invasive Diagnostic Lab Proc ---
Name: Andrea Saleh Date of Study: 09/19/2016 Date: 1970 Ht: 70.9in Medical Record#: [id number] Age: 46 Wt: 202.83lb Gender: Male BSA: 2.12 Order #: [id number] BMI: 28.4 Physicians Procedure Physician: Jesus Garcia MD, [facility] Referring MD: Referring MD: Staff Name Position Time In Aggie Monsalve RN [employer] 04:01 PM Francine Sousa RT (R) Scrub 04:01 PM Radha Villar RN Monitor 04:02 PM Val Holly RN Monitor 04:02 PM Indications Indication Abnormal Test - Stress Procedures Performed Procedure L HRT ARTERY/VENTRICLE ANGIO Failed Procedure Pre-Procedure Checklist Informed consent is complete signed and on chart. H\\T\\P is on chart. ID band is on and ID verified with patient. Patient NPO for procedure The procedure was described for the patient and questions were answered. ECG is on chart. Rhythm: NSR Plan of Care Patient will tolerate the procedure without complications. Adequate level of comfort will be maintained. Hemodynamics will remain stable Patient will recover from procedure without complications. Respiratory function will be maintained. Cardiac rhythm will remain stable. Patient temperature will be maintained. Patient and/or family have verbalized understanding of the procedure. Patient Education Chief Complaint/Reason for Test: Cardiac Cath Developmental Category: Adult (18-64 years) Developmentally Appropriate for Age: Yes Learning Barriers: None Education Needs: Procedure Education Method: Verbal Information Taught: Cardiac Cath Educational Evaluation: Able to repeat information Intravenous Access Time IV Size Location DC'd Fluid/Drip Rate Units RN 03:58 PM 18g 1 06/01" Patent On Arrival Lt Antecubital 0.9NaCl 25 ml/hr Aggie Monsalve RN Allergies guaifenesin Vital Signs Time BP (mmHg) HR (bpm) O2 Sat. RR (bpm) LOC / % 5 = Fully awake and oriented or at pre-proc level 04:04 PM / % 5 = Fully awake and oriented or at pre-proc level 04:20 PM / % 4 = Oriented but drowsy 04:20 PM / % 4 = Oriented but drowsy 04:35 PM / % 5 = Fully awake and oriented or at pre-proc level 04:50 PM / % 04:00 PM 163 / 80 56 100 % 13 04:05 PM 154 / 68 65 100 % 25 04:09 PM 131 / 68 93 97 % 20 04:14 PM 144 / 76 78 98 % 17 04:19 PM 137 / 79 72 97 % 24 04:25 PM 159 / 80 76 97 % 21 04:30 PM 145 / 67 78 96 % 23 04:34 PM 146 / 90 79 98 % 18 04:39 PM 150 / 82 60 97 % 22 04:45 PM 150 / 77 75 97 % 15 04:49 PM 161 / 82 71 96 % 22 04:55 PM 135 / 82 73 % 12 05:06 PM 125 / 80 67 95 % 16 5 = Fully awake and oriented or at pre-proc level 05:39 PM 122 / 75 71 98 % 16 5 = Fully awake and oriented or at pre-proc level 05:15 PM 141 / 111 71 98 % 16 5 = Fully awake and oriented or at pre-proc level Procedural Medications Time Medication Dose Units Method Given By 04:03 PM Versed 2 mg Intravenous Aggie Monsalve RN 04:03 PM Fentanyl 50 mcg Intravenous Aggie Monsalve RN 04:06 PM Lidocaine 2% 0.5 ml Subcutaneous Jesus Garcia MD, [facility] 04:07 PM Heparin 4000 units Nitroglycerin 200 mcg Verapamil 2.5 mg Intraarterial Jesus Garcia MD, [facility] 04:26 PM Fentanyl 25 mcg Intravenous Aggie Monsalve RN 04:26 PM Versed 1 mg Intravenous Aggie Monsalve RN 04:32 PM Lidocaine 2% 18 ml Subcutaneous Jesus Garcia MD, [facility] ASA Classification: CLASS II- Mild systemic disease (i.e. well-controlled diabetes, hypertension, asthma, cigarette smoking) Augusto Score Preprocedure Postprocedure Activity 2- Moves 4 extremities sustained head lift Activity 2- Moves 4 extremities sustained head lift Circulation 2- SBP +/= 20 points of pre-anesthetic level Circulation 2- SBP +/= 20 points of pre-anesthetic level Consciousness 2- Awake and alert oriented x 3 Consciousness 2- Awake and alert oriented x 3 O2 Saturation 2- Able to maintain O2 satruation of 92% on room air O2 Saturation 2- Able to maintain O2 satruation of 92% on room air Respiratory 2- Able to deep breathe and cough well Respiratory 2- Able to deep breathe and cough well Total Score 10 Total Score 10 Contrast Agent: Isovue Diagnostic Contrast: 220 ml Total Contrast: 220 ml Fluoro Dose: 750 mGy Activated Clotting Time Time Seconds to Clot 04:33 PM 400 04:51 PM 188 Procedure Log Time Note Enter By 03:55 PM Pt arrived to vp lab 1 at 1550 pvannoy 03:59 PM Vitals capture started with the following parameters, Patient=Adult, Interval=5 min, Initial Vofxrbuo=832 mmHg, Deflation Rate=5 mmHg, Cuff placed on Left Leg 04:00 PM Recorded ECG: HR=58 Condition=Condition 1 04:00 PM HR=56 bpm, LGLW=456/80 mmhg, JaO4=574.0 %, Resp=13 B/min, Comment=SR 04:01 PM Aggie Monsalve RN Position: [employer] Time in: 16:01 pvannoy 04:02 PM Francine Sousa RT (R) Position: Scrub Time in: 16:01 pvannoy 04:02 PM Radha Villar RN Position: Monitor Time in: 16:02 pvannoy 04:02 PM Val Holly RN Position: Monitor Time in: 16:02 pvannoy 04:02 PM Case Delayed Previous case ran long pvannoy 04:03 PM Hair removed from procedure site in procedure lab using clippers. Rt wrist and rt groin prepped with Chloraprep by Francine Sousa RT (R), safety strap applied then patient was draped. Skin intact. pvannoy 04:03 PM Physican paged/called 16:03. pvannoy 04:03 PM Physican responded and notified patient is ready 16:03 pvannoy 04:03 PM Physician arrived 16:03 pvannoy 04:03 PM ASA Class CLASS II- Mild systemic disease (i.e. well-controlled diabetes, hypertension, asthma, cigarette smoking) pvannoy 04:03 PM Meet and greet completed pvannoy 04:03 PM Sign in performed according to hospital policy. pvannoy 04:03 PM Procedure start 16:03 pvannoy 04:03 PM Time: 16:03 Versed 2 mg Intravenous Given by Aggie Monsalve RN pvannoy 04:04 PM Time: 16:03 Fentanyl 50 mcg Intravenous Given by Aggie Monsalve RN pvannoy 04:04 PM Time: 16:04 Patient comfortable and pain free: Yes pvannoy 04:04 PM Time: 16:04LOC: 5 = Fully awake and oriented or at pre-proc level pvannoy 04:04 PM Time out performed according to hospital policy pvannoy 04:04 PM Time out performed according to hospital policy pvannoy 04:05 PM HR=65 bpm, ZNTQ=488/68 mmhg, AiF8=776.0 %, Resp=25 B/min, Comment=SR 04:06 PM Time: 16:06 0.5 ml Lidocaine 2% to right radial Subcutaneous Given by Jesus Garcia MD, [facility] pvannoy 04:07 PM Access obtained by percutaneous puncture. 6Fr 11cm Terumo Glidesheath sheath placed in right Radial artery. [id number] pvannoy 04:08 PM Time: 16:07 Patient given 4,000 units Heparin, 200 mcg Nitroglycerin, and 2.5 mg Verapamil Intraarterial by Jesus Garcia MD, [facility] pvannoy 04:08 PM 5Fr FR 4 catheter inserted over the wire DN pvannoy 04:08 PM RCA angiography performed in multiple views. pvannoy 04:09 PM Recorded Pressure: Ao, HR=87, Condition=Condition 1 (Aorta) Ao 110/94/101 04:09 PM HR=93 bpm, HFFV=083/68 mmhg, SpO2=97.0 %, Resp=20 B/min, Comment=SR 04:10 PM Catheter removed pvannoy 04:10 PM 5Fr FL 3.5 catheter inserted over the wire [facility] pvannoy 04:11 PM Recorded Pressure: Ao, HR=91, Condition=Condition 1 (Aorta) Ao 101/88/95 04:11 PM Catheter selectively placed in left ventricle pvannoy 04:11 PM LCA angiography performed in multiple views. pvannoy 04:13 PM Catheter removed pvannoy 04:13 PM Inflation device was opened. pvannoy 04:14 PM PCI Status Urgent pvannoy 04:14 PM PCI Indication: PCI for high risk Non-STEMI or unstable angina pvannoy 04:14 PM Pressure channel 1 zeroed. 04:14 PM 5Fr Pigtail catheter inserted over the wire DN pvannoy 04:14 PM HR=78 bpm, JTUQ=326/76 mmhg, SpO2=98.0 %, Resp=17 B/min, Comment=SR 04:14 PM Catheter selectively placed in left ventricle pvannoy 04:14 PM Recorded Pressure: LV, HR=77, Condition=Condition 1 (Left Ventricle) LV 127/0/11 04:15 PM Bolus angiogram of Ventricle complete: 10 ml/sec for a total of 20 mls pvannoy 04:15 PM Catheter removed pvannoy 04:15 PM Recorded Pressure: LV, Ao, HR=70, Condition=Condition 1 (Left Ventricle) LV 121/5/12, (Aorta) Ao 126/73/95 04:15 PM 6Fr CLS 3.5 Runway guide catheter was used to cannulate the PCI vessel successfully. reused? No pvannoy 04:16 PM .014 PT Graphix 182cm guide wire across target lesion- successful. reused? No pvannoy 04:17 PM PCI lesion in Ramus. Pre Stenosis: 80 Pre RUSS Flow: 2: Partial Flow/Perfusion (> 1 but < 3) pvannoy 04:19 PM Time: 16:04 Patient comfortable and pain free: Yes pvannoy 04:19 PM 2.0 mm x 15 mm Emerge Monorail balloon across target lesion- successful. reused? No pvannoy 04:19 PM HR=72 bpm, SXUO=814/79 mmhg, SpO2=97.0 %, Resp=24 B/min, Comment=SR 04:20 PM Time: 16:19 Patient comfortable and pain free: Yes pvannoy 04:20 PM Time: 16:20LOC: 4 = Oriented but drowsy pvannoy 04:24 PM Guide wire removed intact. pvannoy 04:24 PM Guide catheter removed intact. pvannoy 04:25 PM 6Fr JL4 Runway guide catheter was used to cannulate the PCI vessel successfully. reused? No pvannoy 04:25 PM HR=76 bpm, CDPW=508/80 mmhg, SpO2=97.0 %, Resp=21 B/min, Comment=SR 04:26 PM Time: 16:26 Fentanyl 25 mcg Intravenous Given by Aggie Monsalve RN pvannoy 04:27 PM Time: 16:26 Versed 1 mg Intravenous Given by Aggie Monsalve RN pvannoy 04:27 PM Guide catheter removed intact. pvannoy 04:28 PM 6Fr EBU 3.25 Medtronic guide catheter was used to cannulate the PCI vessel successfully. reused? No pvannoy 04:30 PM HR=78 bpm, WPMJ=734/67 mmhg, SpO2=96.0 %, Resp=23 B/min, Comment=SR 04:30 PM Recorded Pressure: Ao, HR=80, Condition=Condition 1 (Aorta) Ao 107/67/86 04:30 PM .014 PT Graphix 182cm guide wire across target lesion- successful. reused? Yes pvannoy 04:30 PM Guide wire removed intact. pvannoy 04:32 PM Guide catheter removed intact. pvannoy 04:33 PM Time: 16:32 18 ml Lidocaine 2% to right groin Subcutaneous Given by Jesus Garcia MD, [facility] pvannoy 04:33 PM At 16:33 the ACT was 400 seconds. pvannoy 04:34 PM Access obtained by percutaneous puncture. 6Fr 10cm Terumo Pengilly sheath placed in right Femoral artery. [id number] pvannoy 04:34 PM 6Fr CLS 3.5 Runway guide catheter was used to cannulate the PCI vessel successfully. reused? Yes pvannoy 04:34 PM HR=79 bpm, BWSN=785/90 mmhg, SpO2=98.0 %, Resp=18 B/min, Comment=SR 04:35 PM Time: 16:20 Patient comfortable and pain free: Yes pvannoy 04:35 PM Time: 16:20LOC: 4 = Oriented but drowsy pvannoy 04:36 PM .014 PT Graphix 182cm guide wire across target lesion- successful. reused? Yes pvannoy 04:37 PM 2.0 mm x 15 mm Emerge Monorail balloon across target lesion- successful. reused? Yes pvannoy 04:39 PM HR=60 bpm, VOLH=526/82 mmhg, SpO2=97.0 %, Resp=22 B/min, Comment=SR 04:44 PM Balloon catheter removed intact. pvannoy 04:44 PM Guide wire removed intact. pvannoy 04:44 PM Guide catheter removed intact. pvannoy 04:45 PM HR=75 bpm, CDDC=886/77 mmhg, SpO2=97.0 %, Resp=15 B/min, Comment=SR 04:45 PM Bolus angiogram of right Femoral complete: 4 ml/sec for a total of 7 mls pvannoy 04:45 PM Procedure completed at 16:45 pvannoy 04:46 PM Isovue 370 - 200ml,1 Bottle(s) used. pvannoy 04:47 PM Arterial sheath pulled, Vasc Band closure device used and was Successful rt radial S/N. pvannoy 04:47 PM Sign out completed: Radiation Dose 750 mGy Fluoro Time: 17.2 Isovue 370 - 200ml contrast 220 ml given by Jesus Garcia MD, [facility]. Complications: NoneCardiac Rehab Consult needed: NoConfirmed administered medications: Yes pvannoy 04:48 PM 10 ml air in Vasc Band. pvannoy 04:48 PM Post ECG NSR pvannoy 04:48 PM Recorded ECG: HR=61 Condition=Condition 1 04:48 PM 16:48 Post Pulses Rt Radial 1+ pvannoy 04:48 PM 16:48 Post Pulses Rt DP and PT 2+ pvannoy 04:49 PM HR=71 bpm, HRHF=545/82 mmhg, SpO2=96.0 %, Resp=22 B/min, Comment=SR 04:50 PM Time: 16:35 Patient comfortable and pain free: Yes pvannoy 04:50 PM Time: 16:35LOC: 5 = Fully awake and oriented or at pre-proc level pvannoy 04:51 PM Time: 16:50 Patient comfortable and pain free: pvannoy 04:51 PM Time: 16:50LOC: pvannoy 04:51 PM At 16:51 the ACT was 188 seconds. pvannoy 04:53 PM Sheath left in place to be pulled on floor/holding area pvannoy 04:53 PM Learning barriers :None pvannoy 04:53 PM Education Methods Verbal pvannoy 04:53 PM Education evaluation Able to repeat information pvannoy 04:53 PM Site status No bleeding/hematoma - Rt Groin as reported by Francine Sousa RT (R) at 16:53 pvannoy 04:54 PM Site status No bleeding/hematoma - Rt Radial as reported by rFancine Sousa RT (R) at 16:53 pvannoy 04:54 PM Complications: None pvannoy 04:54 PM Patient out of room: 16:54 pvannoy 04:55 PM HR=73 bpm, BMWG=426/82 mmhg, Resp=12 B/min, Comment=SR 04:55 PM Family placed in consult room. pvannoy 04:55 PM Coronary Dominance: right pvannoy 04:56 PM Lesion found in Mid RCA. Pre Stenosis: 20 Pre RUSS Flow: 3: Complete and Brisk Flow/Perfusion pvannoy 04:56 PM Lesion found in Mid LAD. Pre Stenosis: 50 Pre RUSS Flow: 3: Complete and Brisk Flow/Perfusion pvannoy 04:57 PM Lesion found in Right PDA. Pre Stenosis: 50 Pre RUSS Flow: 3: Complete and Brisk Flow/Perfusion pvannoy 04:57 PM Lesion found in Ramus. Pre Stenosis: 80 Pre RUSS Flow: 2: Partial Flow/Perfusion (> 1 but < 3) pvannoy 04:57 PM Mid/Distal Left Anterior Descending Coronary Artery and diagonal branches with 50% stenosis. pvannoy 04:58 PM Right Coronary, Right Posterior Descending Arteries with Right Posterolateral and Acute Marginal branches with 50 % stenosis. pvannoy 04:58 PM Ramus with 80% stenosis. pvannoy 05:06 PM patient to HR 2 mprater 05:10 PM Report given to pat LIGHT Pt taken to Room #39. 17:10 pvannoy 05:38 PM Arterial site held using manual compression and V+ Pad for 16 minutes by Aggie Monsalve RN scoates 05:38 PM Site status No bleeding/hematoma - Rt Groin as reported by Aggie Monsalve RN at 17:38 scoates 05:38 PM Opsite applied scoates 05:50 PM Patient out of room: 17:50 per S. NADEGE Monsalve ejohnsbar Complications Complication None Hemodynamics Pressures Site Systolic/A Wave Diastolic/V Wave Mean AO 110 94 101 AO 101 88 95 LV 127 0 11 LV 121 5 12 AO 126 73 95 AO 107 67 86 Post Procedure Information Blood Pressure: 135/82 mmHg Rhythm: NSR Post procedural instructions were given Closure Device Time Device Success/Fail 09/19/2016 4:46:00 PM Mechanical Compression Successful Site Checks Time Location Status Staff Sheath In? Note 04:53 PM Rt Groin No bleeding/hematoma Francine Sousa RT (R) 04:53 PM Rt Radial No bleeding/hematoma Francine Sousa RT (R) 05:06 PM Rt Groin No bleeding/ No Hematoma Ankita Horton RN 05:06 PM Rt Wrist No bleeding/ No Hematoma Ankita Horton RN right vasc band in place 05:38 PM Rt Groin No bleeding/hematoma Aggie Monsalve RN 05:39 PM Rt Groin No bleeding/ No Hematoma Aggie Monsalve RN Pulses Time Site Pre-Procedure Post-Procedure Note 09/19/2016 3:58:00 PM Rt Radial 2+ 09/19/2016 3:59:00 PM Rt DP 2+ 09/19/2016 4:00:00 PM Rt PT 2+ 4:48:00 PM Rt Radial 2+ 4:48:00 PM Rt DP 2+ 09/19/2016 5:06:00 PM Rt Radial 2+ 09/19/2016 5:06:00 PM Bilateral DP \\T\\ PT 2+ 09/19/2016 5:39:00 PM Bilateral DP \\T\\ PT 2+ Updated by Radha Villar RN on 09/20/2016 8:35:11 AM Radha Villar RN electronically signed on 09/20/2016 8:36:06 AM with status of Final
--- NOTE | 2016-09-20 08:49 | Invasive Diagnostic Lab ---
Name: Andrea Saleh Date of Study: 09/19/2016 Date: 1970 Ht: 180.0 cm /70.9 in Medical Record#: [id number] Age: 46 Wt: 92. kg / 202.83 lb Account/Order#: [id number] Gender: Male BSA: 2.12 Order #: [id number] Fluoro Dose: 750 mGy BMI: 28.4 Procedure Physician: Jesus Garcia MD, [facility] Referring MD: Referring MD: Procedures Performed: LEFT HEART CATH Attempt at PCI of ramus intermedius Indications: Abnormal Test - Stress, Chest pain Impressions: There is severe one vessel coronary artery disease The left ventricle is normal and has normal contractility EF 55% Recommendations: Optimal medical therapy of patient's disease. Aggressive risk factor modification. Start guideline directed medical therapy with beta vincent and nitrate (patient not previously on antianginals) History/Risk Factors: CP GERD KIDNEY STONES Current/Recent Smoker Procedure Access obtained in the right Femoral artery by percutaneous puncture Complications: None Contrast: Isovue 220ml Hemodynamics: Pressures Site Systolic/ A Wave Diastolic/ V Wave End Diastolic/ Mean HR AO 110 94 101 87 AO 101 88 95 91 LV 127 0 11 77 LV 121 5 12 72 AO 126 73 95 67 AO 107 67 86 80 LV Ventriculography Ejection Method: LV Gram Ejection Fraction: 55% Wall Motion: PERSAUD Anterobasal Normal Anterolateral Normal Apical: Normal Inferoapical Normal Inferobasal Normal Coronary Dominance: right Lesion Findings/Interventions * Left Main Coronary Artery The LMCA is angiographically free of disease. Short. * Left Anterior Descending There is a 50% stenosis in the Mid LAD. The lesion has a RUSS flow of 3. * Circumflex The Circumflex is angiographically free of significant disease. The 1st Marginal is angiographically free of significant disease. * Ramus There is a 80-90% stenosis in the Ramus. The lesion has a RUSS flow of 2. Attempted PCI - difficult to engage and wire the vessel given short left main. When wiring vessel, appeared to enter dissection plane behind the lesion and was unable to reenter the true lumen. Patient asymptomatic. * Right Coronary Artery There is a 20% stenosis in the Mid RCA. The lesion has a RUSS flow of 3. There is a 60% stenosis in the Right PDA. The lesion has a RUSS flow of 3. Updated by Val Holly RN on 09/19/2016 5:03:52 PM Jesus Garcia MD, [facility] electronically signed on 09/20/2016 8:44:21 AM with status of Final
[2016-09-20] MEDS ORDERED: Isosorbide MONOnitrate (24 HR) 30 MG TAB.ER.24H PO SCH (09:00)
[2016-09-20] MEDS ORDERED: Metoprolol XL (24 HR) Succ 25 MG TAB.ER.24H PO SCH (09:00)
[2016-09-20] MEDS: *HR* Ticagrelor 90 MG TABLET PO SCH (09:33)
[2016-09-20] MEDS: Aspirin 81 MG TAB.CHEW PO SCH (09:33)
[2016-09-20] MEDS: Insulin LISPRO 300 UNITS/3 ML VIAL SQ SCH ×2 (09:34→12:41)
[2016-09-20] MEDS: Nicotine 21 MG PATCH.TD24 TD SCH (09:34)
[2016-09-20] MEDS: Acetaminophen 325 MG TABLET PO PRN (15:27)
[2016-09-20 15:51] VITALS: BP 106/70
--- NOTE | 2016-09-20 15:56 | Cardiology Progress Note ---
Date of Encounter: 09/20/16 Time of Encounter: 14:30 Assessment and Plan (1) CAD (coronary artery disease) Current Visit: Yes Status: Acute Proceeded with C after abnormal stress test. S/p LHC that showed 80-90% stenosis in the ramus. Attempt at PCI made. D/t short left main, unable to engage wire. 20% stenosis mRCA and 60%RPDA remaining. EF 55%. Medical management recommended. Imdur and metoprolol added to medication regimen. Plavix and asa for minimum of one month. Continue statin therapy. Denies recurrent chest pain. Close out-pt f/u in 1-2 weeks. Activity restrictions reviewed. No driving for one week. No heavy lifting over 5 lbs with right arm for one week. access site care discussed. Qualifiers: Coronary Disease-Associated Artery/Lesion type: [place] artery [place] vs. transplanted heart: [place] heart Associated angina: without angina Qualified Code(s): I25.10 - Atherosclerotic heart disease of [place] coronary artery without angina pectoris (2) Abnormal stress test Current Visit: Yes Status: Acute Discussion w patient/family: The assessment and plan as outlined above was discussed with the patient and/or family members who expressed understanding and agreement. All questions were answered. Thank you for involving us in the care of your patient. Please call with any questions. Subjective Principal diagnosis: chest pain Interval history: S/p LHC. Denies recurrent chest pain. Smoking cessation discussed. Objective Vital Signs, Last 4 Hours Temp Pulse Resp BP Pulse Ox 09/20/16 15:50 98.0 F 72 16 106/70 98 General: Conversant, No Apparent Distress HEENT: Atraumatic, Normocephaly, Mucus Membranes Moist Neck: No JVD, Normal carotid pulses Cardiac: Reg Rate and Rhythm, Normal S1 and S2, No Murmur Lungs: Normal Breath Sounds, No Wheeze, Rales, Rhonchi Neuro: Alert and responsive, No focal deficits noted Abdomen: Soft, Non-Tender Skin: No rashes noted on visualized skin Musculoskeletal: No Chest Wall Tenderness, Other (No problem with right radial access or right groin access. ) Extremities: No Clubbing, No Cyanosis, No Edema, Normal Pulses Results 09/18/16 03:42 09/19/16 02:57 - EKG Interpretation EKG results cardiology: personally reviewed Consult Discharge Plan - Plan Instructions: Angina (ED), Chest Pain (ED) Referrals: NO,PCP [Primary Care Provider] -
--- NOTE | 2016-09-20 16:34 | Discharge Summary ---
Date of Encounter: 09/20/16 Time of Encounter: 15:30 - Discharge Diagnosis (1) DVT prophylaxis Priority: Secondary Status: Acute (2) Chest pain Priority: Primary Status: Acute Qualifiers: Chest pain type: precordial pain Qualified Code(s): R07.2 - Precordial pain (3) CAD (coronary artery disease) Priority: Primary Status: Acute Qualifiers: Coronary Disease-Associated Artery/Lesion type: [place] artery [place] vs. transplanted heart: [place] heart Associated angina: without angina Qualified Code(s): I25.10 - Atherosclerotic heart disease of [place] coronary artery without angina pectoris (4) Abnormal stress test Priority: Primary Status: Acute - Discharge Medications Prescriptions: Nitroglycerin 0.4 mg SL Q5MIN PRN #30 tab.subl PRN Reason: Chest Pain Aspirin 81 mg PO DAILY #60 tab.chew Atorvastatin [Lipitor] 40 mg PO HS #30 tablet Isosorbide MONOnitrate (24 HR) [Imdur] 30 mg PO DAILY #30 tab.er.24h Metoprolol XL (24 HR) Succ [Toprol Xl] 25 mg PO DAILY #30 tab.er.24h Nicotine Patch [Nicoderm] 21 mg TD DAILY #14 patch.td24 Ticagrelor [Brilinta] 90 mg PO BID #60 tablet Home Medications: Omeprazole [PriLOSEC] 40 mg PO DAILY #30 capsule. 11/18/15 [Rx] Metformin [Glucophage] 500 mg PO DAILY 09/17/16 [History] Aspirin 81 mg PO DAILY #60 tab.chew 09/20/16 [Rx] Atorvastatin [Lipitor] 40 mg PO HS #30 tablet 09/20/16 [Rx] Isosorbide MONOnitrate (24 HR) [Imdur] 30 mg PO DAILY #30 tab.er.24h 09/20/16 [ Rx] Metoprolol XL (24 HR) Succ [Toprol Xl] 25 mg PO DAILY #30 tab.er.24h 09/20/16 [ Rx] Nicotine Patch [Nicoderm] 21 mg TD DAILY #14 patch.td24 09/20/16 [Rx] Nitroglycerin 0.4 mg SL Q5MIN PRN #30 tab.subl 09/20/16 [Rx] Ticagrelor [Brilinta] 90 mg PO BID #60 tablet 09/20/16 [Rx] Allergies/Adverse Reactions: Allergies guaifenesin [From Robitussin] Adverse Reaction (Verified 09/26/15 15:25) Hives Procedures/tests Complete & Pending: Procedures Performed prior 72 hours Category Date Time Status CT chest wo con [CT] Stat Cat Scan 09/20/16 07:41 Draft Left Heart Cath [CL Cardiac Catheterization] [CL] Tie Cutter 09/19/16 12:00 Completed Routine NM mila perf SPECT multi [NM] Routine Exams 09/18/16 00:01 Taken ECG 12 lead ECG [ECG] AM 0600 Y 09/18/16 06:00 Ordered EV echocardiogram Routine Y 09/18/16 13:34 Completed SP exercise nuclear stress Routine Y 09/18/16 00:01 Completed Date of admission: 09/17/16 12:16 Primary care physician: PCP NO Consults: 09/17/16 13:17 Consult to Cardiology [CONS] Routine Comment: Consulting Provider: Cardiology [facility] Reason for Consult: 46M with concerning chest pain. initial troponin negative. Reports cath 4 years ago with small vessel disease. Call Completed: Yes 09/19/16 18:48 Consult to Occupational Therapy [CONS] Routine Comment: Evaluate, develop and implement POC Consult to Physical Therapy [CONS] Routine Comment: Evaluate, develop and implement POC 09/20/16 12:01 Consult to [employer] [CONS] Routine Reason for SW Consult: New [place] script Discharging clinician: Mago Anderson Anticipated date of discharge: 09/20/16 - Patient Status Disposition: Home, Self-Care Condition: Good Functional capacity at discharge: independent ambulation Overall status at discharge: patient is back to baseline - Discharge Instructions Instructions: Angina (ED), Chest Pain (ED) Follow Up With: NO,PCP [Primary Care Provider] - Forms: ED Satisfaction Letter Additional Instructions: Follow up with [facility] cardiology in 1-2 weeks. - Diet and Activity Activity: increase activity as tolerated Diet: diabetic diet Interval History: Mr. Saleh is a 46 year old male with history of type 2 diabetes, GERD presented to the emergency department today with complaints of sudden onset of chest pain. He reports he was at work and all of a sudden he broke out in a cold sweat and had sudden sharp pain in his left chest radiating to his left shoulder , the pain was constant and described as sharp, he also had nausea and vomited 3 times, and had left arm numbness and tingling. The pain was somewhat relieved by nitroglycerin in the ER. He reports mild lightheadedness, but denies any headache, palpitations, shortness of breath, recent fever, chills, abdominal pain, diarrhea. Of note, he reports he had a cardiac catheter about 4 years ago at [place] which showed small vessel disease, he reports he was started on a medication at that time but has not continued to take that medication. Evaluation in the emergency department included a troponin which was negative at 0.0, chest x-ray showed discoid atelectasis in left lung base but no acute cardiopulmonary disease, EKG showed sinus rhythm heart rate of [address] elevations or depressions. On exam, patient is alert and oriented, in no acute distress. Heart has regular rate and rhythm, lungs are clear bilaterally to auscultation. Hospital course: Mr. Saleh is a 46 year old male admitted for chest pain. He was placed on continuous cardiac monitoring, 3 sets of troponins are followed, which were negative. D-dimer negative, CT chest done negative. However patient has abnormal stress test. Cardiology consult was called. LHC has been done. There is stenosis but difficult to put stents. Cardiology recommended aggressive medical management. I saw and examined the patient today. He is awake alert, oriented 3. Vitals stable. No further chest pain or shortness of breath. We will discharge patient home today with DAPT, statin, beta vincent, nitrate. Patient will follow-up with cardiology as outpatient. Patient was educated to stop smoking, and NicoDerm patch has been prescribed Time spent discussing smoking cessation with patient: more than 10 minutes - Time Spent with Patient Total time spent providing and/or coordinating discharge services: 40 minutes Greater than 30 minutes - Constitutional Vitals: Temp Pulse Resp BP Pulse Ox 98.0 F 72 16 106/70 98 09/20/16 15:50 09/20/16 15:50 09/20/16 15:50 09/20/16 15:50 09/20/16 15:50 General appearance: Present: cooperative, A&O X 3, pleasant, no acute distress, answers questions appropriately - Head Head exam: Present: atraumatic, normocephalic - Eye Eye exam: Present: PERRL, conjuntiva pink, sclera anicteric Pupils: Present: PERRL - Neck Neck exam general surgery: Present: supple, trachea midline. Absent: lymphadenopathy - Respiratory Respiratory exam: Present: CTAB. Absent: accessory muscle use, rales, rhonchi, wheezes - Cardiovascular Cardiovascular exam: Present: RRR, +S1, +S2. Absent: diastolic murmur, gallop, rubs, systolic murmur - GI/Abdominal GI/Abdominal exam: Present: normal bowel sounds, soft, no peritoneal signs. Absent: distended, tenderness - Extremities Exam Extremities exam: Present: warm, radial pulses palpable and symetrical. Absent : calf tenderness, cyanotic, pedal edema - Neurological Exam Neurological exam: Present: CN II-XII intact, oriented X3, no focal deficits. Absent: pronater drift, facial droop, speech deficit - Skin Skin exam: Present: dry, intact
== END 2016-09-20 17:44 | disposition home or self-care (01) ==
LOC: EMEROO 10:10 → 3BNU 10:10 → SUATTDRO 12:16 → 3BNU 12:38
PROVIDERS: ADMIT Nurse Practitioner Family; ATTEND Internal Medicine

== ENCOUNTER 2016-11-19 14:18 | Observation (INO) ==
[2016-11-19] MEDS ORDERED: *HR* Metoprolol 5 MG/5 ML VIAL IVP ONE (15:11)
--- NOTE | 2016-11-19 15:11 | Emergency Department Note ---
Disposition Clinical Impression: Chest pain Qualifiers: Chest pain type: unspecified Qualified Code(s): R07.9 - Chest pain, unspecified Disposition: Admitted As Inpatient Condition: Undetermined Referrals: NO,PCP [Non-Partnered Physician] - Forms: ED Satisfaction Letter Time of Disposition: 17:22 Chest Pain HPI - General Chief Complaint: ED Chest Pain Stated Complaint: chest pain Time Seen by Provider: 11/19/16 15:03 Source: patient Mode of arrival: ambulatory Limitations: no limitations Vital Signs Reviewed: Yes Nursing Notes Reviewed: Yes - History of Present Illness HPI Narrative: 46-year-old male with history of CAD, diabetes, hyperlipidemia, hypertension, smoking, family history, arrives [facility] emergency department complaining of chest pain that started yesterday evening. The patient states it was partially relieved with nitroglycerin last night. The patient states that he took 2 nitroglycerin today which helped relieve his pain. The patient does state this pain came back after and he became concerned. The patient did receive a cardiac catheter roughly 3 months ago for evaluation and states that they were unable to stent his lesion because it was so low in his heart. The patient states he currently sees Dr. Garcia in cardiology. Patient denies any history of PE, DVT, unilateral leg swelling, recent surgeries. The patient does have superficial phlebitis on exam and was diagnosed by PCP previously. The patient arrived to the emergency department was tachycardic with a heart rate into the 120s. The patient states that he does feel like he is having difficulty catching his breath and states that he does have a small amount of nausea but is not actively nauseous at this time. Patient denies any other complaints. Pt complaint: chest pain Onset (ago): day(s) (1) Duration: intermittent Onset: during rest Pain Location: substernal Severity: moderate Severity scale (1-10): 5 Quality: tightness Pain Radiation: LUE, neck Improves with: nitroglycerin Worsens with: nothing Associated symptoms: Reports: nausea, diaphoresis, dyspnea Treatments prior to arrival chest pain: nitroglycerin - Related Data On Oral Contraceptives: No Home Medications Medication Instructions Recorded Confirmed metFORMIN [Glucophage] 1,000 mg PO BID 09/17/16 11/19/16 Clopidogrel [Plavix] 75 mg PO DAILY 11/19/16 11/19/16 Famotidine [Heartburn Prevention] 20 mg PO BID 11/19/16 11/19/16 Gabapentin [Neurontin] 300 mg PO BID 11/19/16 11/19/16 Glimepiride [Amaryl] 2 mg PO DAILY 11/19/16 11/19/16 Isosorbide MONOnitrate (24 HR) 60 mg PO DAILY 11/19/16 11/19/16 [Imdur] Previous Rx's Medication Instructions Recorded Aspirin 81 mg PO DAILY #60 tab.chew 09/20/16 Atorvastatin [Lipitor] 40 mg PO HS #30 tablet 09/20/16 Metoprolol XL (24 HR) Succ [Toprol 25 mg PO DAILY #30 tab.er.24h 09/20/16 Xl] Allergies Allergy/AdvReac Type Severity Reaction Status Date / Time guaifenesin [From Robitussin] Allergy Hives Verified 11/19/16 16:54 All systems ED: reviewed and negative except as stated. Constitutional: Denies: fever, chills, weakness, weight change Cardiovascular: Reports: chest pain. Denies: palpitations, dyspnea on exertion , edema, syncope Respiratory: Reports: dyspnea. Denies: cough, wheezes, hemoptysis, stridor Gastrointestinal: Reports: nausea. Denies: abdominal pain, vomiting, diarrhea, constipation, hematemesis, melena, hematochezia Genitourinary: Denies: urgency, dysuria, frequency, hematuria Musculoskeletal: Denies: back pain, neck pain, arthralgia, myalgia Integumentary: Denies: rash, abrasion, lesions Neurological: Denies: headache, weakness, numbness, paresthesias, confusion, abnormal gait, vertigo Chest Pain PMH - Past Medical History Medical history: Reports: coronary artery disease, diabetes, GERD, kidney stones , other Surgical history: Reports: appendectomy, cholecystectomy, orthopedic, other Psychiatric history: Reports: no psych history - Social History Smoking Status: Current every day smoker Alcohol use: Reports: none Drug use: Reports: marijuana Physical Exam - General Limitations: no limitations General appearance: alert, in no apparent distress - Head Head exam: atraumatic, normocephalic, normal inspection - Eye Eye exam: Present: normal appearance, PERRL, EOMI - Neck Neck exam: Present: normal inspection, full ROM, trachea midline - Chest Chest inspection: Present: normal inspection, symmetric chest wall rise - Respiratory Respiratory exam: Present: normal lung sounds bilaterally - Cardiovascular Cardiovascular exam: Present: normal rhythm, tachycardia, normal heart sounds - Abdominal Exam Abdominal exam: Present: soft, Non-Tender. Absent: tenderness, distention, guarding, rebound, rigidity - Extremities Exam Extremities exam: Present: normal inspection, full ROM, other (Small superficial bruising and left AC.). Absent: tenderness, pedal edema - Back Exam Back exam: Present: normal inspection, full ROM. Absent: tenderness - Neurological Exam Neurological exam: Present: alert, oriented X3 - Skin Skin exam: Present: warm, dry, intact, normal color Course Vital Signs Temperature 97.5 F L 11/19/16 14:32 Pulse Rate 127 11/19/16 14:32 Respiratory Rate 18 11/19/16 14:32 Blood Pressure 109/68 11/19/16 14:32 O2 Sat by Pulse Oximetry 98 11/19/16 14:32 Temperature 97.5 F L 11/19/16 14:32 Pulse Rate 98 11/19/16 16:53 Respiratory Rate 16 11/19/16 16:53 Blood Pressure 133/73 11/19/16 16:53 O2 Sat by Pulse Oximetry 98 11/19/16 16:53 Oxygen Delivery Oxygen Delivery Room Air Chest Pain - MDM Narrative Medical decision making narrative: Workup. Demonstrates no acute process. The patient does have chest pain by nitroglycerin here in the emergency department. This appears to be an unstable angina given the patient's symptoms are at rest. With the patient's previous cardiac catheter was unable to have stent placed according the patient, combined with the patient's unstable anginal, we will admit the patient to the hospitalist. Accepted by the nurse practitioner for hospital service. - Medical Records Medical records reviewed: Yes I reviewed the patient's medical records. - Lab Data Lab results reviewed: Yes I reviewed the patient's lab results. Result diagrams: 11/19/16 16:07 11/19/16 16: Lab Results 11/19/16 11/19/16 11/19/16 Range/Units 16: 16: 16:07 WBC 10.4 (4.3-11.1) K/mcL RBC 4.76 (4.19-5.50) M/mcL Hgb 14.9 (12.9-16.9) g/dL Hct 44.4 (37.5-50.1) % MCV 93.3 (83.0-100.0) fL MCH 31.3 (28.0-33.3) pg MCHC 33.6 (31.6-35.5) g/dL RDW 13.2 (11.5-14.5) % Plt Count 263 (140-400) K/mcL MPV 8.8 L (9.4-12.4) fL Immature Gran % 0.2 (0-4) % Seg Neutrophils % 60.4 % Lymphocytes % 29.1 % Monocytes % 8.6 % Eosinophils % 1.4 % Basophils % 0.3 % Neutrophils # 6.3 (1.6-8.9) K/mcL Lymphocytes # 3.0 (0.6-4.6) K/mcL Monocytes # 0.9 (0.0-1.3) K/mcL Eosinophils # 0.1 (0.0-0.6) K/mcL Basophils # 0.0 (0.0-0.2) K/mcL D-Dimer < 215 (0-500) ng/mLFEU Sodium 141 (136-145) mEq/L Potassium 4.2 (3.5-4.5) mEq/L Chloride 105 (98-109) mEq/L Carbon Dioxide 24 (19-29) mEq/L BUN 12 (8-26) mg/dL Creatinine 0.77 (0.72-1.25) mg/dL Est GFR ( Amer) > 60 (> 60) Est GFR (Non-Af Amer) > 60 (> 60) BUN/Creatinine Ratio 16 (6-26) Glucose 67 L (70-99) mg/dL POC Glucose (58-89) Calculated Osmolality 290 (280-300) Calcium 9.4 (8.6-10.8) mg/dL Troponin I (0-0.03) ng/mL 11/19/16 11/19/16 Range/Units 16:07 16:17 WBC (4.3-11.1) K/mcL RBC (4.19-5.50) M/mcL Hgb (12.9-16.9) g/dL Hct (37.5-50.1) % MCV (83.0-100.0) fL MCH (28.0-33.3) pg MCHC (31.6-35.5) g/dL RDW (11.5-14.5) % Plt Count (140-400) K/mcL MPV (9.4-12.4) fL Immature Gran % (0-4) % Seg Neutrophils % % Lymphocytes % % Monocytes % % Eosinophils % % Basophils % % Neutrophils # (1.6-8.9) K/mcL Lymphocytes # (0.6-4.6) K/mcL Monocytes # (0.0-1.3) K/mcL Eosinophils # (0.0-0.6) K/mcL Basophils # (0.0-0.2) K/mcL D-Dimer (0-500) ng/mLFEU Sodium (136-145) mEq/L Potassium (3.5-4.5) mEq/L Chloride (98-109) mEq/L Carbon Dioxide (19-29) mEq/L BUN (8-26) mg/dL Creatinine (0.72-1.25) mg/dL Est GFR ( Amer) (> 60) Est GFR (Non-Af Amer) (> 60) BUN/Creatinine Ratio (6-26) Glucose (70-99) mg/dL POC Glucose 59 (58-89) Calculated Osmolality (280-300) Calcium (8.6-10.8) mg/dL Troponin I 0.00 (0-0.03) ng/mL - Radiology Data Radiology results reviewed: Yes I reviewed the patient's radiology results. - EKG Data EKG attestation: Yes I reviewed and interpreted this EKG. EKG results narrative: Heart rate 1 27 bpm. AK interval 113 ms. QTc 381 ms. Normal axis. Sinus tachycardia. No ST elevation or ST depression noted. EKG otherwise similar to EKG from 09/17/2016. No acute changes noted. Attestation Statement - Attestation Attestation: Patient was seen with resident physician. I reviewed the history, physical, assessment and plan, and agree with the findings. I also personally evaluated this patient and had [id number] time with this patient. 46-year-old male presents to the emergency department with chest pain since last night. Patient has a history of coronary artery disease most recently with a stent approximately 3 months ago. He said that the lesion was too small to be stented at that time but he has known coronary artery disease. He states that his chest pain as a pressure sensation left side of his chest radiated more to the left shoulder. He also has a tightness especially when breathing no diaphoresis occasional shortness of breath. He said he took a nitroglycerin about 11:00 which got the chest pain under control well not to sleep last night. However this morning he said it came back and it was bad again. Again the episodes wax and wane lasting from 5 minutes to an hour. Currently has a 4- 5 out of 10 level of discomfort in his anterior chest. He also has some slight nausea he has not had vomiting. On examination vital signs patient is tachycardic but other vital signs are okay. ENT is unremarkable. Heart tachycardic with regular rhythm. Lungs clear. Abdomen soft nontender. Extremities unremarkable. Neurologically intact. ED course. EKG shows sinus tachycardia with no acute ischemic changes. We will do Lopressor gets heart rate under control and nitroglycerin to get pain under control. We will also check lab tests. Initial workup did not reveal any significant abnormalities. Patient's symptoms were improved with treatments here. With his history we will need to be admit the patient to the hospital for chest pain rule out. Hospitalist was notified We will also ensure patient remains hemodynamically stable in the emergency department. I agree with resident physician assessment plan.
[2016-11-19 16:16] LABS: Basophils % 0.3 %; Eosinophils # 0.1 K/mcL (0.0-0.6); Eosinophils % 1.4 %; Hematocrit 44.4 % (37.5-50.1); Hemoglobin 14.9 g/dL (12.9-16.9); Immature Granulocytes % 0.2 % (0-4); Lymphocytes % 29.1 %; Mean Corpuscular HGB Conc 33.6 g/dL (31.6-35.5); Mean Corpuscular Hemoglobin 31.3 pg (28.0-33.3); Mean Corpuscular Volume 93.3 fL (83.0-100.0); Mean Platelet Volume 8.8 fL (9.4-12.4); Monocytes # 0.9 K/mcL (0.0-1.3); Monocytes % 8.6 %; Neutrophils # 6.3 K/mcL (1.6-8.9); Platelet Count 263 K/mcL (140-400); Red Blood Count 4.76 M/mcL (4.19-5.50); Red Cell Distribution Width 13.2 % (11.5-14.5); Segmented Neutrophils % 60.4 %
[2016-11-19 16:30] LABS: BUN/Creatinine Ratio 16 (6-26); Blood Urea Nitrogen 12 mg/dL (8-26); Calcium 9.4 mg/dL (8.6-10.8); Carbon Dioxide 24 mEq/L (19-29); Chloride 105 mEq/L (98-109); Glucose 67 mg/dL (70-99); Osmolality,Calculated 290 (280-300); Potassium 4.2 mEq/L (3.5-4.5); Sodium 141 mEq/L (136-145); eGFR For African Americans > 60 (> 60); eGFR For Non-African Americans > 60 (> 60)
[2016-11-19] MEDS: Nitroglycerin 0.4 MG TAB.SUBL SL PRN ×2 (16:38→16:52)
[2016-11-19] MEDS ORDERED: Acetaminophen 325 MG TABLET PO PRN (19:04)
[2016-11-19] MEDS ORDERED: Ondansetron 4 MG/2 ML VIAL IVP PRN (19:04)
[2016-11-19] MEDS ORDERED: Naloxone 0.4 MG/ML INJ IVP PRN (19:04)
[2016-11-19] MEDS ORDERED: *HR* Morphine 2 MG/ML SYRINGE IVP PRN (19:04)
[2016-11-19] MEDS ORDERED: *HR* HYDROcodone/Acet 5/325 mg TABLET PO PRN (19:04)
[2016-11-19] MEDS ORDERED: Dextrose Gel 15 GM PO PRN ×2 (19:19)
[2016-11-19] MEDS ORDERED: D5% in Water 1,000 ML IVC PRN (19:19)
[2016-11-19] MEDS ORDERED: *HR* Dextrose 50 % in Water (Syg) 50 ML SYRINGE IVP PRN (19:19)
--- NOTE | 2016-11-19 19:30 | Internal Med History&Physical ---
<VickiPalmer royal - Last Filed: 11/19/16 20:01> Date of Encounter: 11/19/16 Time of Encounter: 18:30 Assessment and Plan (1) Chest pain Current visit: Yes Status: Acute Patient presents with chest pain over the past 24 hours which he describes as stabbing with pressure and relieved by nitroglycerin at first, then unresolving. Patient had stress test, unsuccessful heart catheter, echocardiogram on . Cardiology consult placed. Patient placed on continuous cardiac telemetry and supplemental O2 with continuation of nitroglycerin PRN as well as patient's isosorbide, HLD and HTN medications. Patient recently was changed from Brilinta to Plavix for anticoagulation due to extreme bruising. Will continue aspirin and Plavix. Qualifiers: Chest pain type: other chest pain Qualified Code(s): R07.89 - Other chest pain; R07.8 - Other chest pain (2) HTN (hypertension) Current visit: Yes Status: Chronic Patient presents with history of chronic hypertension. Continue Lopressor. Qualifiers: Hypertension type: essential hypertension Qualified Code(s): I10 - Essential (primary) hypertension (3) HLD (hyperlipidemia) Current visit: Yes Status: Chronic Patient presents with history of chronic hyperlipidemia. Continue Lipitor. Lipid panel ordered. Qualifiers: Hyperlipidemia type: pure hypercholesterolemia Qualified Code(s): E78.00 - Pure hypercholesterolemia, unspecified; E78.0 - Pure hypercholesterolemia (4) CAD (coronary artery disease) Current visit: Yes Status: Chronic Patient presents with history of CAD. EKG shows sinus tachycardia when admitted to ED in 120s which has resolved to current HR in 80s. Will continue nitroglycerin PRN. Continuous cardiac telemetry and supplemental O2 ordered as well as cardiology consult. Continue Lopressor, aspirin, Plavix, and Lipitor. Qualifiers: Coronary Disease-Associated Artery/Lesion type: [place] artery [place] vs. transplanted heart: [place] heart Associated angina: with unspecified angina Qualified Code(s): I25.119 - Atherosclerotic heart disease of [place] coronary artery with unspecified angina pectoris (5) DM (diabetes mellitus) Current visit: Yes Status: Chronic Patient resents with history of chronic diabetes mellitus controlled by oral hyperglycemics. Patient's A1C was checked by PCP several weeks ago and will be re-done in January. Blood glucose monitoring before meals at bedtime. Will hold patient's oral hyperglycemics and use low-dose correction sliding scale while inpatient. Qualifiers: Diabetes mellitus type: type 2 Diabetes mellitus complication status: without complication Diabetes mellitus penitentiary insulin use: without wallet assembler use Qualified Code(s): E11.9 - Type 2 diabetes mellitus without complications (6) DVT prophylaxis Current visit: Yes Status: Acute Patient placed on DVT prophylaxis to admission protocol and current cardiac symptoms. Heparin 5,000 units SQ every 8 ordered. Continue aspirin and Plavix. Internal Medicine - H&P: HPI Chief complaint: Chest pain Admitted From: Emergency Dept Plans for Post Hospital Care: Home History of present illness: Mr. Saleh is a 46 year old male who presents from the ED with chief complaint of chest pain which began last night approximately 8:30 PM. Patient states he took 3 nitroglycerin between 8:30 and 11:30 PM with the first 2 nitroglycerin relieving the chest pain and the third not relieving. Patient describes the pain as sharp that a chest heaviness/pressure which radiated up his left neck and to his left shoulder. Patient states he had this similar pain in August 2016 when he had a stress test and heart catheterization without placement of stent due to proximity of the lesion in his heart. Patient currently is followed by Dr. Garcia for cardiology. Patient denies shortness of breath, vomiting, diarrhea, dizziness, headache, numbness, tingling, diaphoresis, or generalized weakness. During admission to ED, patient's heart rate was in the 120s upon examination now is in the 80s. Patient reports he was mildly nauseous with chest pain. Mr. Saleh has a history of coronary artery disease, diabetes managed with oral hyperglycemics, hyperlipidemia, hypertension, GERD, kidney stones, and tobacco abuse. Patient's last echo/stress test were performed 09/18/16 when his heart catheterization was performed. Stress test was positive for ischemia and echo showed LVEF of 45-50%. Patient is at high risk for cardiac event due to history of CAD as well as risk factors of diabetes , HLD, HTN, and tobacco abuse. Patient will be admitted as inpatient with consult to cardiology, continuous cardiac telemetry, supplemental O2, trending troponins x2, and follow-up labs. Patient to be monitored closely. Time spent with patient >40 minutes. Past Med Surg Social Fam HX - Past Medical History Source: patient Medical history: coronary artery disease, diabetes, GERD, hyperlipidemia, hypertension, kidney stones, other Psychiatric history: no psych history - Past Surgical History Surgical History: appendectomy, cholecystectomy, orthopedic, other - Social History Smoking Status: Current every day smoker Packs per day: 0.5 Smokeless Tobacco Status: No Alcohol use: none Drug use: marijuana (Reports use up to 3x per month) Occupational status: employed Current living situation: Home, With Family Activity Level: Independent ambulation Recent Out of Country Travel Within the Last 8 Weeks: No Exposure or Possible Exposure to Illness During Travel: No - Family History Mother Living Status: Still Living Hx Family Cardiac Disorders: Yes (HTN, MURMUR) Hx Family Respiratory Disorders: No Hx Family Cancer: No Hx Family GI Disorders: No Hx Family Endocrine Disorder: Yes (DIABETES) Hx Family Neuromuscular Disorders: No Hx Family Neurologic Disorders: No Hx Family HEENT Disorders: No Hx Family Autoimmune Disorders: No Father Living Status: Cause of : Car accident Hx Family Cardiac Disorders: No Hx Family Respiratory Disorders: No Hx Family Cancer: No Hx Family GI Disorders: No Hx Family Endocrine Disorder: No Hx Family Neuromuscular Disorders: No Hx Family Neurologic Disorders: No Hx Family HEENT Disorders: No Hx Family Autoimmune Disorders: No Sister Living Status: Still Living Hx Family Endocrine Disorder: Yes (DM) Internal Medicine - H&P: Meds metFORMIN [Glucophage] 1,000 mg PO BID 09/17/16 [History] Aspirin 81 mg PO DAILY #60 tab.chew 09/20/16 [Rx] Atorvastatin [Lipitor] 40 mg PO HS #30 tablet 09/20/16 [Rx] Metoprolol XL (24 HR) Succ [Toprol Xl] 25 mg PO DAILY #30 tab.er.24h 09/20/16 [ Rx] Clopidogrel [Plavix] 75 mg PO DAILY 11/19/16 [History] Famotidine [Heartburn Prevention] 20 mg PO BID 11/19/16 [History] Gabapentin [Neurontin] 300 mg PO BID 11/19/16 [History] Glimepiride [Amaryl] 2 mg PO DAILY 11/19/16 [History] Isosorbide MONOnitrate (24 HR) [Imdur] 60 mg PO DAILY 11/19/16 [History] Allergies guaifenesin [From Robitussin] Allergy (Verified 11/19/16 16:54) Hives All Systems PM: A 10-system review of systems was performed and is negative for pertinent findings except as documented above in the HPI. - Constitutional Constitutional: no chills, no fever(s), no night sweats - EENT Eyes: no change in vision, no discharge, no pain, no photophobia Ears: no ear discharge, no ear pain, no tinnitus Nose, mouth and throat: no dysphagia, no nasal discharge, no neck pain, no sore throat - Breasts Breasts: as per HPI - Cardiovascular Cardiovascular ROS IM: as per HPI, chest pain - Respiratory Respiratory: no cough, no dyspnea, no wheezing, no excessive phlegm production - Gastrointestinal Gastrointestinal: no abdominal pain, no diarrhea, no hematemesis, no hematochezia, no melena, no nausea, no vomiting - Genitourinary Genitourinary ROS male: as per HPI - Musculoskeletal Musculoskeletal ROS IM: no numbness, no tingling - Integumentary Integumentary IM: no rash, no unusual bruising - Neurological Neurological ROS: no confusion, no convulsions, no focal weakness, no numbness, no tingling, no tremor(s) - Psychiatric Psychiatric: as per HPI - Endocrine Endocrine IM: as per HPI - Hematologic/Lymphatic Hematologic/Lymphatic: easy bruising (Patient was taking Brilinta but due to bruising, his PCP placed him on Plavix) - Allergic/Immunologic Allergic/Immunologic: as per HPI - Constitutional Vitals: Temp Pulse Resp BP Pulse Ox 98.3 F 80 16 120/78 98 11/19/16 18:59 11/19/16 18:59 11/19/16 18:59 11/19/16 18:59 11/19/16 18:59 General appearance: Present: cooperative, A&O X 3, pleasant, no acute distress, obese, answers questions appropriately - Head Head exam: Present: atraumatic, normocephalic - Eye Eye exam: Present: PERRL, conjuntiva pink, sclera anicteric Pupils: Present: PERRL - ENT ENT exam: Present: normal exam, normal external ear exam - Neck Neck exam general surgery: Present: normal inspection, supple, trachea midline - Respiratory Respiratory exam: Present: CTAB. Absent: accessory muscle use, rales, rhonchi, wheezes - Cardiovascular Cardiovascular exam: Present: irregular rhythm (Transient irregular rhythm heard on auscultation approximately every 25-30 beats) - GI/Abdominal GI/Abdominal exam: Present: normal bowel sounds, soft, no peritoneal signs. Absent: distended, tenderness - Rectal Rectal exam: Present: deferred - Additional comments: exam deferred. - Extremities Exam Extremities exam: Present: warm, radial pulses palpable and symetrical. Absent : calf tenderness, cyanotic, pedal edema - Back Exam Back exam: Present: normal inspection - Neurological Exam Neurological exam: Present: CN II-XII intact, oriented X3, no focal deficits. Absent: pronater drift, facial droop, speech deficit - Psychiatric Psychiatric exam: Present: normal affect, normal mood - Skin Skin exam: Present: dry, intact Internal Med - H&P Results - Labs CBC & Chem 7: 11/19/16 16:07 11/19/16 16:07 - EKG Data EKG shows normal: sinus rhythm Rate: tachycardia - EKG Data Prior EKG available for review: yes EKG comments: 11/19/16 19:43 EKG dated shows sinus rhythm with short LA interval, indeterminate axis. EKG dated 10/28/16 shows sinus tachycardia with short LA interval, pattern consistent with pulmonary disease, possible right ventricular hypertrophy. - Diagnostic Studies Chest x-ray Additional comments: Impressions Chest X-Ray 11/19/16 15:08 IMPRESSION: No acute process. D/ / Fabian Bull MD / Fabian Bull MD Interpreting Provider: Fabian Bull MD <Casimiro Neumann - Last Filed: 11/19/16 20:25> Date of Encounter: 11/19/16 Internal Medicine - H&P: HPI History of present illness: Mr. Saleh is a 46 year old male All Systems PM: A 10-system review of systems was performed and is negative for pertinent findings except as documented above in the HPI. - Constitutional Vitals: Temp Pulse Resp BP Pulse Ox 98.3 F 80 16 120/78 98 11/19/16 18:59 11/19/16 18:59 11/19/16 18:59 11/19/16 18:59 11/19/16 18:59 Internal Med - H&P Results - Labs CBC & Chem 7: 11/19/16 16:07 11/19/16 16:07 - Attending Attestation I have seen and examined the patient at around 7:15 PM. I have discussed palpation with nurse practitioner Palmer Lyn. I have reviewed the orders and the note. Patient is a 46-year-old male. With past medical history of coronary artery disease, hypertension, diabetes and hyperlipidemia. He presents to the ED with complaints of left-sided chest pain. He states the pain started yesterday and has been gradually worsening. He complains of a stabbing pressure-like pain. Rates it about 6 out of 10 in intensity. It radiates to left arm and jaw. Patient has a history of coronary artery disease and underwent a left heart catheter in August 2016. He does have severe 1 vessel disease of the ramus but PCI could not be performed. LVEF is 55%. Patient denies shortness of breath at present. Chest pain has now improved. He is on nitroglycerin and morphine. On examination patient is awake and alert. Not in any distress. Able to provide all history. Family is at bedside. Patient is being admitted for chest pain. Initial EKG shows sinus tachycardia with no acute ST-T changes. Troponin is negative. We will trend troponin. Patient will be continued on aspirin and Plavix and statin. Cardiology consult. Patient and family have been explained about condition and plan of care. Understood and agreed. no unanswered questions. Recent left heart catheter and nuclear stress test reports have been reviewed. CODE STATUS full code.
[2016-11-19] MEDS: Pantoprazole 40 MG VIAL IVP SCH (20:08)
[2016-11-19] MEDS: Gabapentin 300 MG CAPSULE PO SCH (20:08)
[2016-11-19] MEDS: Insulin LISPRO 300 UNITS/3 ML VIAL SQ SCH (20:08)
[2016-11-20] MEDS: *HR* Heparin 5,000 UNIT/ML VIAL SQ SCH ×4 (00:32→23:02)
[2016-11-20 04:24] LABS: Basophils % 0.4 %; Eosinophils # 0.2 K/mcL (0.0-0.6); Hematocrit 40.3 % (37.5-50.1); Hemoglobin 13.8 g/dL (12.9-16.9); Immature Granulocytes % 0.4 % (0-4); Lymphocytes # 2.7 K/mcL (0.6-4.6); Mean Corpuscular HGB Conc 34.2 g/dL (31.6-35.5); Mean Corpuscular Hemoglobin 31.9 pg (28.0-33.3); Mean Corpuscular Volume 93.3 fL (83.0-100.0); Mean Platelet Volume 9.3 fL (9.4-12.4); Monocytes # 0.6 K/mcL (0.0-1.3); Neutrophils # 4.9 K/mcL (1.6-8.9); Platelet Count 244 K/mcL (140-400); Red Blood Count 4.32 M/mcL (4.19-5.50); Red Cell Distribution Width 13.2 % (11.5-14.5); Segmented Neutrophils % 58.2 %
[2016-11-20 04:29] LABS: INR 1.1; Prothrombin Time 11.7 Seconds (9.4-12.1)
[2016-11-20 04:32] LABS: Activated Partial Thrombo Time 34.4 Seconds (26.0-36.0)
[2016-11-20 04:38] LABS: Alanine Aminotransferase 19 Units/L (0-55); Albumin 3.7 g/dL (3.5-5.0); Albumin/Globulin Ratio 1.3 (1.1-2.2); Alkaline Phosphatase 72 Units/L (38-126); Aspartate Amino Transferase 13 Units/L (5-34); BUN/Creatinine Ratio 19 (6-26); Bilirubin,Total 0.5 mg/dL (0.2-1.2); Blood Urea Nitrogen 15 mg/dL (8-26); Calcium 8.9 mg/dL (8.6-10.8); Carbon Dioxide 26 mEq/L (19-29); Chloride 103 mEq/L (98-109); Globulin 2.9 g/dL (2.4-3.5); Glucose 136 mg/dL (70-99); Osmolality,Calculated 289 (280-300); Potassium 4.4 mEq/L (3.5-4.5); Sodium 138 mEq/L (136-145); Total Protein 6.6 g/dL (6.0-8.3); Triglycerides 104 mg/dL (< 150); eGFR For African Americans > 60 (> 60); eGFR For Non-African Americans > 60 (> 60)
[2016-11-20 04:39] LABS: Chol/HDL Ratio 2.9 (0-4.9); Cholesterol 101 mg/dL (< 200); HDL Cholesterol 35 mg/dL (40-59); LDL Cholesterol,Calculated 45 mg/dL (0-99)
[2016-11-20] MEDS: Insulin LISPRO 300 UNITS/3 ML VIAL SQ SCH ×4 (07:32→21:14)
[2016-11-20] MEDS ORDERED: Isosorbide MONOnitrate (24 HR) 30 MG TAB.ER.24H PO SCH (09:00)
--- NOTE | 2016-11-20 10:35 | Cardiology Consult Note ---
<VaughnElaine J - Last Filed: 11/20/16 10:43> Date of Encounter: 11/20/16 Time of Encounter: 10:00 Assessment and Plan (1) Chest pain Current Visit: Yes Status: Acute Per cardiology: -Patient with atypical chest pain that started at rest. -Patient denies aggervating or alleviating factors. -Patient reports increased use of SL nitro at home. STates nitro lessens pain, but does not alleviate pain -Troponins 0x3. -No ECG for me to personally review. -[facility] 08/2016 with stenosis that was unable to be ammended. -On imdur and beta vincent. -Currently chest pain free. -Will obtain ECG. -Will have ([facility]) review cath films. Qualifiers: Chest pain type: other chest pain Qualified Code(s): R07.89 - Other chest pain; R07.8 - Other chest pain (2) CAD (coronary artery disease) Current Visit: Yes Status: Chronic Per cardiology: -KNown CAD with abnorma stress test and subsequent [facility] 08/2016 with 50% mid LAD stenosis, 80-90% ramus, unable to be amended to PCI at that time, 20% mid RCA, 60% PDA. -ON asa, statin, beta vincent, imdur, and plavix. Has SL nitro at home. -Patient now with recurrent chest pain and reports increased use of SL nitro. -Currently chest pain free. -NO ECG for me to personally review, ordered. -Echo 08/2016 LVEF 45-50%, mild global left ventricular systolic dysfunction, no significant valvular dysfunction, all argueta hypokinetic. -Will have (interventional [facility]) review [facility] films for recommendations regarding possible PCI. -Further recommendations pending review of [facility] films. Qualifiers: Coronary Disease-Associated Artery/Lesion type: [place] artery [place] vs. transplanted heart: [place] heart Associated angina: with unspecified angina Qualified Code(s): I25.119 - Atherosclerotic heart disease of [place] coronary artery with unspecified angina pectoris (3) HLD (hyperlipidemia) Current Visit: Yes Status: Chronic Per cardiology: -Known hyperlipidemia. -On statin. -Will continue to monitor. Qualifiers: Hyperlipidemia type: pure hypercholesterolemia Qualified Code(s): E78.00 - Pure hypercholesterolemia, unspecified; E78.0 - Pure hypercholesterolemia (4) HTN (hypertension) Current Visit: Yes Status: Chronic Per cardiology: -KNown HTN. ] -BPs 100s systolic. -ON beta vincent. -Will continue to monitor. Qualifiers: Hypertension type: essential hypertension Qualified Code(s): I10 - Essential (primary) hypertension (5) Cardiomyopathy Current Visit: Yes Status: Chronic Per cardiology: -LVEF 45-50% per echo as above. -On beta vincent. -Bps 100s systolic. -Unable to add jillian inhibitor at this time, due to low Bp. -Recommend adding jillian inhibitor once BP will tolerate. Qualifiers: Cardiomyopathy type: unspecified Qualified Code(s): I42.9 - Cardiomyopathy , unspecified (6) Tobacco abuse Current Visit: Yes Status: Acute Per cardiology: -Known tobacco abuse. -Smokes about 1ppd. -I spent 3 minutes reviewing smoking cessation education with patient. Discussion w patient/family: The assessment and plan as outlined above was discussed with the patient and/or family members who expressed understanding and agreement. All questions were answered. Thank you for involving us in the care of your patient. Please call with any questions. Discussed and reviewed with . History of Present Illness Consult date: 11/19/16 Requesting physician: Palmer Lyn Consult reason: chest pain Chief complaint: chest pain History of present illness: Mr. Saleh is a 46 year old male with a relevant past medical history of DM, CAD , tobacco abuse. Patient presented to [facility] with complaints of chest pain. Patient states pain occurred while sitting. Patient denies aggervating and alleviating factors. Patient states he took multiple nitroglycerin. Patient states pain was lessened with nitro, however not relieved. Patient states he underwent LHC in August, and had a blockage that was unable to be fixed at that time. Patient denies current chest pain. Patient's states that in the past 2 weeks, he has been using more nitroglycerin. Patient denies shortness of breath or fatigue. Past Med Surg Social Fam HX - Past Medical History Attestation: Yes The following information was validated with the patient. Source: patient, old records reviewed, obtained from family Medical history: coronary artery disease, diabetes, GERD, hyperlipidemia, hypertension, kidney stones, other Psychiatric history: no psych history - Past Surgical History Surgical History: appendectomy, cholecystectomy, orthopedic, other - Social History Smoking Status: Current every day smoker Packs per day: 0.5 Smokeless Tobacco Status: No Alcohol use: none Drug use: marijuana (Reports use up to 3x per month) - Family History Sister Living Status: Still Living Hx Family Endocrine Disorder: Yes (DM) Mother Living Status: Still Living Hx Family Cardiac Disorders: Yes (HTN, MURMUR) Hx Family Respiratory Disorders: No Hx Family Cancer: No Hx Family GI Disorders: No Hx Family Endocrine Disorder: Yes (DIABETES) Hx Family Neuromuscular Disorders: No Hx Family Neurologic Disorders: No Hx Family HEENT Disorders: No Hx Family Autoimmune Disorders: No Father Living Status: Cause of : Car accident Hx Family Cardiac Disorders: No Hx Family Respiratory Disorders: No Hx Family Cancer: No Hx Family GI Disorders: No Hx Family Endocrine Disorder: No Hx Family Neuromuscular Disorders: No Hx Family Neurologic Disorders: No Hx Family HEENT Disorders: No Hx Family Autoimmune Disorders: No Medications and Allergies metFORMIN [Glucophage] 1,000 mg PO BID 09/17/16 [History] Aspirin 81 mg PO DAILY #60 tab.chew 09/20/16 [Rx] Atorvastatin [Lipitor] 40 mg PO HS #30 tablet 09/20/16 [Rx] Metoprolol XL (24 HR) Succ [Toprol Xl] 25 mg PO DAILY #30 tab.er.24h 09/20/16 [ Rx] Clopidogrel [Plavix] 75 mg PO DAILY 11/19/16 [History] Famotidine [Heartburn Prevention] 20 mg PO BID 11/19/16 [History] Gabapentin [Neurontin] 300 mg PO BID 11/19/16 [History] Glimepiride [Amaryl] 2 mg PO DAILY 11/19/16 [History] Isosorbide MONOnitrate (24 HR) [Imdur] 60 mg PO DAILY 11/19/16 [History] Allergies guaifenesin [From Robitussin] Allergy (Verified 11/19/16 16:54) Hives All Systems Review: A 10-system review of systems was performed and is negative for pertinent findings except as documented above in the HPI. - Cardiovascular Cardiovascular: as per HPI, chest pain at rest Physical Examination Vital Signs, Last 4 Hours Temp Pulse Resp BP Pulse Ox 11/20/16 07:22 97.7 F 64 14 100/61 98 General: Conversant, No Apparent Distress HEENT: Atraumatic, Normocephaly, Mucus Membranes Moist Neck: No JVD, Normal carotid pulses Cardiac: Reg Rate and Rhythm, Normal S1 and S2, No Murmur Lungs: Normal Breath Sounds, No Wheeze, Rales, Rhonchi Neuro: Alert and responsive, No focal deficits noted Abdomen: Soft, Non-Tender Skin: No rashes noted on visualized skin Musculoskeletal: No Chest Wall Tenderness Extremities: No Clubbing, No Cyanosis, No Edema, Normal Pulses Results 11/20/16 03:49 11/20/16 03:49 Lab Results Impressions Chest X-Ray 11/19/16 15:08 IMPRESSION: No acute process. D/ / Fabian Bull MD / Fabian Bull MD Interpreting Provider: Fabian Bull MD Active Medications Acetaminophen (Tylenol) 650 mg PO Q6HR PRN PRN Reason: Mild Pain (1-3) Stop: 05/21/17 19:05 Hydrocodone Bitart/Acetaminophen ([place] 5-325 Mg) 1 tab PO Q4HR PRN PRN Reason: Moderate Pain (4-6) Stop: 05/21/17 19:05 Aspirin (Aspirin) 81 mg PO DAILY [facility] Stop: 05/22/17 09:01 Atorvastatin Calcium (Lipitor) 40 mg PO HS VANNESA Stop: 05/21/17 21:01 Last Admin: 11/19/16 20:08 Dose: 40 mg Clopidogrel Bisulfate (Plavix) 75 mg PO DAILY VANNESA Stop: 05/22/17 09:01 Dextrose/Water (Dextrose 50% (Syg)) 25 ml IVP AD PRN PRN Reason: Hypoglycemia Stop: 05/21/17 19:20 Gabapentin (Neurontin) 300 mg PO BID VANNESA Stop: 05/21/17 21:01 Last Admin: 11/19/16 20:08 Dose: 300 mg Glucagon (Glucagen) 1 mg IM ONCE PRN PRN Reason: Hypoglycemia Stop: 05/21/17 19:20 Glucose (Gluctose) 15 gm PO ONCE PRN PRN Reason: Hypoglycemia Stop: 05/21/17 19:20 Glucose (Gluctose) 30 gm PO ONCE PRN PRN Reason: Hypoglycemia Stop: 05/21/17 19:20 Heparin Sodium (Porcine) (Heparin) 5,000 unit SQ Q8HCO [facility] Stop: 05/21/17 22:01 Last Admin: 11/20/16 05:49 Dose: 5,000 unit Dextrose (Dextrose 5%) 1,000 mls @ 100 mls/hr IVC .Q10H PRN PRN Reason: HYPOGLYCEMIA Stop: 05/21/17 19:20 Insulin Human Lispro (Humalog) 0 units SQ TIDAC VANNESA PRN Reason: Protocol Stop: 05/22/17 07:31 Last Admin: 11/20/16 07:32 Dose: Not Given Insulin Human Lispro (Humalog) 0 units SQ HS [facility] PRN Reason: Protocol Stop: 05/21/17 21:01 Last Admin: 11/19/16 20:08 Dose: Not Given Isosorbide Mononitrate (Imdur) 60 mg PO DAILY [facility] Stop: 05/22/17 09:01 Metoprolol Succinate (Toprol Xl) 25 mg PO DAILY [facility] Stop: 05/22/17 09:01 Morphine Sulfate (Morphine Sulfate) 2 mg IVP Q4HR PRN PRN Reason: Severe Pain (7-10) Stop: 05/21/17 19:05 Naloxone HCl (Narcan) 0.4 mg IVP Q2MIN PRN PRN Reason: Opioid Reversal Stop: 05/21/17 19:05 Nitroglycerin (Nitroglycerin) 0.4 mg SL Q5MIN PRN PRN Reason: Chest Pain Stop: 05/21/17 15:09 Last Admin: 11/19/16 16:52 Dose: 0.4 mg Ondansetron HCl (Zofran) 4 mg IVP Q8HR PRN PRN Reason: Nausea And Vomiting Stop: 05/21/17 19:05 Pantoprazole Sodium (Protonix) 40 mg IVP DAILY [facility] Stop: 05/21/17 19:16 Last Admin: 11/19/16 20:08 Dose: 40 mg Laboratory Tests 11/19/16 11/19/16 11/20/16 16:07 22:16 03:49 Hgb 13.8 Creatinine AST ALT Troponin I 0.00 0.00 Triglycerides Cholesterol LDL Cholesterol, Calc HDL Cholesterol 11/20/16 11/20/16 03:49 03:49 Hgb Creatinine 0.79 AST 13 ALT 19 Troponin I 0.00 Triglycerides 104 Cholesterol 101 LDL Cholesterol, Calc 45 HDL Cholesterol 35 L - Imaging and Cardiology Chest Xray: report reviewed Stress Test: report reviewed Echo: report reviewed Cardiac cath: report reviewed - EKG Interpretation EKG results cardiology: personally reviewed (ECG unavailable, attempted to find in patient's folder on floor and epiphany. Will order.), other (Telemetry reviewed with average HR 68, sinus rhythm. Rare PVCs and rare PACs.) Consult Discharge Plan - Plan Referrals: Doris Stanley CNP [Primary Care Provider] - <Xiomy Spencer - Last Filed: 11/20/16 11:13> Date of Encounter: 11/20/16 Assessment and Plan Discussion w patient/family: The assessment and plan as outlined above was discussed with the patient and/or family members who expressed understanding and agreement. All questions were answered. Thank you for involving us in the care of your patient. Please call with any questions. History of Present Illness History of present illness: Mr. Saleh is a 46 year old male All Systems Review: A 10-system review of systems was performed and is negative for pertinent findings except as documented above in the HPI. Physical Examination Vital Signs, Last 4 Hours Temp Pulse Resp BP Pulse Ox 11/20/16 07:22 97.7 F 64 14 100/61 98 Results 11/20/16 03:49 11/20/16 03:49 Lab Results 11/19/16 11/20/16 11/20/16 22:16 03:49 03:49 WBC 8.4 Hgb 13.8 Hct 40.3 Plt Count 244 INR 1.1 APTT 34.4 Sodium Potassium Chloride Carbon Dioxide BUN Creatinine Glucose Calcium Total Bilirubin AST ALT Alkaline Phosphatase Troponin I 0.00 11/20/16 11/20/16 03:49 03:49 WBC Hgb Hct Plt Count INR APTT Sodium 138 Potassium 4.4 Chloride 103 Carbon Dioxide 26 BUN 15 Creatinine 0.79 Glucose 136 H Calcium 8.9 Total Bilirubin 0.5 AST 13 ALT 19 Alkaline Phosphatase 72 Troponin I 0.00 - Attending Attestation I examined this patient and my medical decision-making was reviewed with the EXHIBIT ARTIST/PA/Advanced Practice Nurse/Resident Physician. I agree with the documented findings, disposition and treatment plan. Presents with atypical chest pain and negative troponins x3. Recent cath August 2016 demonstrated moderate CAD with severe disease in the ramus that was not amenable to PCI. Will have Interventional review the films to determine if present symptoms would warrant re-attempt at PCI. Otherwise, continue medical therapy. Patient was agreeable with this plan.
--- NOTE | 2016-11-20 15:31 | Internal Med Progress Note ---
Date of Encounter: 11/20/16 Time of Encounter: 15:27 - Assessment and plan (1) Chest pain Current Visit: Yes Status: Acute Assessment and plan: Cardiology evaluated in the case as the patient has history of CAD with abnormal stress test and subsequent C 08/2016 with 50% mid LAD stenosis, 80-90 % ramus, unable to be amended to PCI at that time, 20% mid RCA, 60% PDA. -ON asa, statin, beta vincent, imdur, and plavix. Has SL nitro at home. Cardiology to evaluate the possibility of another cardiac catheterization versus medical management -Echo 08/2016 LVEF 45-50%, mild global left ventricular systolic dysfunction, no significant valvular dysfunction, all argueta hypokinetic. EKG is unremarkable Qualifiers: Chest pain type: other chest pain Qualified Code(s): R07.89 - Other chest pain; R07.8 - Other chest pain (2) Type 2 diabetes mellitus Current Visit: No Status: Acute Assessment and plan: Insulin sliding scale Qualifiers: Diabetes mellitus complication status: without complication Diabetes mellitus shelter insulin use: without shelter use Qualified Code(s): E11.9 - Type 2 diabetes mellitus without complications (3) Smoker Current Visit: No Status: Acute Assessment and plan: Nicotine patch, smoking cessation counseling given for 5 minutes (4) CAD (coronary artery disease) Current Visit: Yes Status: Chronic Assessment and plan: As stated above Qualifiers: Coronary Disease-Associated Artery/Lesion type: [place] artery [place] vs. transplanted heart: [place] heart Associated angina: with unspecified angina Qualified Code(s): I25.119 - Atherosclerotic heart disease of [place] coronary artery with unspecified angina pectoris (5) HTN (hypertension) Current Visit: Yes Status: Chronic Assessment and plan: Stable Qualifiers: Hypertension type: essential hypertension Qualified Code(s): I10 - Essential (primary) hypertension (6) HLD (hyperlipidemia) Current Visit: Yes Status: Chronic Qualifiers: Hyperlipidemia type: pure hypercholesterolemia Qualified Code(s): E78.00 - Pure hypercholesterolemia, unspecified; E78.0 - Pure hypercholesterolemia - Subjective Interval history: complains of CP midsternal pressure like 2/10 , no radiation, no SOB, no abdominal pain , no fever, no cough - Constitutional Vitals: Temp Pulse Resp BP Pulse Ox 97.9 F 84 14 110/74 95 11/20/16 15:06 11/20/16 15:06 11/20/16 15:06 11/20/16 15:06 11/20/16 15:06 General appearance: Present: cooperative, A&O X 3, pleasant, no acute distress, obese, answers questions appropriately - Head Head exam: Present: atraumatic, normocephalic - Eye Eye exam: Present: PERRL, conjuntiva pink, sclera anicteric Pupils: Present: PERRL - Neck Neck exam general surgery: Present: supple, trachea midline. Absent: lymphadenopathy - Respiratory Respiratory exam: Present: CTAB. Absent: accessory muscle use, rales, rhonchi, wheezes - Cardiovascular Cardiovascular exam: Present: RRR, +S1, +S2. Absent: diastolic murmur, gallop, rubs, systolic murmur - GI/Abdominal GI/Abdominal exam: Present: normal bowel sounds, soft, no peritoneal signs. Absent: distended, tenderness - Extremities Exam Extremities exam: Present: warm, radial pulses palpable and symetrical. Absent : calf tenderness, cyanotic, pedal edema - Neurological Exam Neurological exam: Present: CN II-XII intact, oriented X3, no focal deficits. Absent: pronater drift, facial droop, speech deficit - Skin Skin exam: Present: dry, intact Internal Medicine: Result - Labs CBC & Chem 7: 11/20/16 03:49 11/20/16 03:49 Labs: Short CBC 11/20/16 Range/Units 03:49 WBC 8.4 (4.3-11.1) K/mcL Hgb 13.8 (12.9-16.9) g/dL Hct 40.3 (37.5-50.1) % Plt Count 244 (140-400) K/mcL Neutrophils # 4.9 (1.6-8.9) K/mcL BMP 11/20/16 03:49 Sodium 138 Potassium 4.4 Chloride 103 Carbon Dioxide 26 BUN 15 Creatinine 0.79 Glucose 136 H Calcium 8.9 Cardiac Enzymes 11/19/16 11/20/16 Range/Units 22:16 03:49 Troponin I 0.00 0.00 (0-0.03) ng/mL Liver Function 11/20/16 Range/Units 03:49 Total Bilirubin 0.5 (0.2-1.2) mg/dL AST 13 (5-34) Units/L ALT 19 (0-55) Units/L Alkaline Phosphatase 72 (38-126) Units/L Albumin 3.7 (3.5-5.0) g/dL - ABG Interpretation ABG results: PT/INR, D-dimer PT 11.7 Seconds (9.4-12.1) 11/20/16 03:49 D-Dimer < 215 ng/mLFEU (0-500) 11/19/16 16:07 Consult Discharge Plan - Plan Referrals: Doris Stanley, ART GLASS DESIGNER [Primary Care Provider] -
[2016-11-20] MEDS: Aspirin 81 MG TAB.CHEW PO SCH (15:49)
[2016-11-20] MEDS: Metoprolol XL (24 HR) Succ 25 MG TAB.ER.24H PO SCH (15:49)
[2016-11-20] MEDS: Gabapentin 300 MG CAPSULE PO SCH ×2 (15:50→21:20)
[2016-11-20] MEDS: Pantoprazole 40 MG VIAL IVP SCH (15:50)
[2016-11-20] MEDS: Nicotine 21 MG PATCH.TD24 TD SCH (21:20)
[2016-11-20] MEDS ORDERED: Isosorbide MONOnitrate (24 HR) 30 MG TAB.ER.24H PO ONE (23:51)
[2016-11-21] MEDS: *HR* Heparin 5,000 UNIT/ML VIAL SQ SCH ×3 (06:01→20:28)
[2016-11-21] MEDS: Insulin LISPRO 300 UNITS/3 ML VIAL SQ SCH ×4 (08:51→20:39)
[2016-11-21] MEDS: Aspirin 81 MG TAB.CHEW PO SCH (08:58)
[2016-11-21] MEDS: Isosorbide MONOnitrate (24 HR) 30 MG TAB.ER.24H PO SCH (08:58)
[2016-11-21] MEDS: Metoprolol XL (24 HR) Succ 25 MG TAB.ER.24H PO SCH (08:58)
[2016-11-21] MEDS: Nicotine 21 MG PATCH.TD24 TD SCH (08:58)
[2016-11-21] MEDS: Pantoprazole 40 MG VIAL IVP SCH (08:59)
[2016-11-21] MEDS: Gabapentin 300 MG CAPSULE PO SCH ×2 (08:59→20:28)
--- NOTE | 2016-11-21 09:57 | Event Note ---
Date of Encounter: 11/21/16 Time of Encounter: 09:30 - Cardiology Event Note Patient with recurrent chest pain. LHC 08/2016, films reviewed by . states area could be amendable to PCI. Discussed and reviewed with patient and family. Agreeable for LHC. RIsks versus benefits of LHC explained to patient and family. Patient and family state understanding and agree with LHC. OF note, patient is DNR-CCA/DNI educated patient and family on code status being full code during LHC and for 24 hours after LHC. Patient and family state understanding and agree to full code during LHC and for 24 hours after. Further recommendations pending LHC.
[2016-11-21] MEDS ORDERED: *HR* Heparin 10,000 UNIT/10 ML VIAL ONE (13:00)
[2016-11-21] MEDS ORDERED: 0.9 % Sodium Chloride 1,000 ML ONE ×2 (13:00→13:30)
[2016-11-21] MEDS ORDERED: Heparin 1,000 UNITS/500 mL NS 500 ML ONE (13:00)
[2016-11-21] MEDS ORDERED: Nitroglycerin 1,000 MCG/10 ML VIAL IV ONE (13:00)
--- NOTE | 2016-11-21 13:10 | Internal Med Progress Note ---
Date of Encounter: 11/21/16 Time of Encounter: 13:08 - Assessment and plan (1) Chest pain Current Visit: Yes Status: Acute Assessment and plan: Cardiology evaluated in the case as the patient has history of CAD with abnormal stress test and subsequent C 08/2016 with 50% mid LAD stenosis, 80-90 % ramus, unable to be amended to PCI at that time, 20% mid RCA, 60% PDA. -ON asa, statin, beta vincent, imdur, and plavix. Has SL nitro at home. Cardiology to perform a cardiac catheterization later today -Echo 08/2016 LVEF 45-50%, mild global left ventricular systolic dysfunction, no significant valvular dysfunction, all argueta hypokinetic. EKG is unremarkable Qualifiers: Chest pain type: other chest pain Qualified Code(s): R07.89 - Other chest pain; R07.8 - Other chest pain (2) Type 2 diabetes mellitus Current Visit: No Status: Acute Assessment and plan: Insulin sliding scale Qualifiers: Diabetes mellitus complication status: without complication Diabetes mellitus penitentiary insulin use: without penitentiary use Qualified Code(s): E11.9 - Type 2 diabetes mellitus without complications (3) Smoker Current Visit: No Status: Acute Assessment and plan: Nicotine patch, smoking cessation counseling given for 5 minutes (4) CAD (coronary artery disease) Current Visit: Yes Status: Chronic Assessment and plan: As stated above Qualifiers: Coronary Disease-Associated Artery/Lesion type: [place] artery [place] vs. transplanted heart: [place] heart Associated angina: with unspecified angina Qualified Code(s): I25.119 - Atherosclerotic heart disease of [place] coronary artery with unspecified angina pectoris (5) HTN (hypertension) Current Visit: Yes Status: Chronic Assessment and plan: Stable Qualifiers: Hypertension type: essential hypertension Qualified Code(s): I10 - Essential (primary) hypertension (6) HLD (hyperlipidemia) Current Visit: Yes Status: Chronic Qualifiers: Hyperlipidemia type: pure hypercholesterolemia Qualified Code(s): E78.00 - Pure hypercholesterolemia, unspecified; E78.0 - Pure hypercholesterolemia - Subjective Interval history: complained of CP midsternal pressure like , no radiation, no SOB, no abdominal pain , no fever, no cough - Constitutional Vitals: Temp Pulse Resp BP Pulse Ox 97.8 F 67 17 115/74 98 11/21/16 10:32 11/21/16 10:32 11/21/16 10:32 11/21/16 10:32 11/21/16 10:32 General appearance: Present: cooperative, A&O X 3, pleasant, no acute distress, obese, answers questions appropriately - Head Head exam: Present: atraumatic, normocephalic - Eye Eye exam: Present: PERRL, conjuntiva pink, sclera anicteric Pupils: Present: PERRL - Neck Neck exam general surgery: Present: supple, trachea midline. Absent: lymphadenopathy - Respiratory Respiratory exam: Present: CTAB. Absent: accessory muscle use, rales, rhonchi, wheezes - Cardiovascular Cardiovascular exam: Present: RRR, +S1, +S2. Absent: diastolic murmur, gallop, rubs, systolic murmur - GI/Abdominal GI/Abdominal exam: Present: normal bowel sounds, soft, no peritoneal signs. Absent: distended, tenderness - Extremities Exam Extremities exam: Present: warm, radial pulses palpable and symetrical. Absent : calf tenderness, cyanotic, pedal edema - Neurological Exam Neurological exam: Present: CN II-XII intact, oriented X3, no focal deficits. Absent: pronater drift, facial droop, speech deficit - Skin Skin exam: Present: dry, intact Internal Medicine: Result - Labs CBC & Chem 7: 11/20/16 03:49 11/20/16 03:49 - ABG Interpretation ABG results: PT/INR, D-dimer PT 11.7 Seconds (9.4-12.1) 11/20/16 03:49 D-Dimer < 215 ng/mLFEU (0-500) 11/19/16 16:07 Consult Discharge Plan - Plan Referrals: Doris Stanley CNP [Primary Care Provider] -
--- NOTE | 2016-11-21 13:27 | Pre-Sedation Evaluation ---
Pre-sedation evaluation - Pre-sedation checklist Date of procedure: 11/21/16 Procedure: [facility] Recent Vitals: Last Vital Signs Temp 97.8 F 11/21/16 10:32 Pulse 67 11/21/16 10:32 Resp 17 11/21/16 10:32 BP 115/74 11/21/16 10:32 Pulse Ox 98 11/21/16 10:32 H&P (including ROS) documented in medical record: Yes Previous reaction to sedatives/anesthetics: No Dietary Status: NPO after Midnight Dentition: No loose teeth or bridges ASA Classification *see protocol: CLASS II-Mild systemic disease Plan of Care: Pt appropriate candidate for procedure/moderate/conscious sedation , Risks/benefits of procedure/sedation discussed w/ patient/family
[2016-11-21] MEDS ORDERED: *HR* FentaNYL (PF) 100 MCG/2 ML VIAL ONE (13:28)
[2016-11-21] MEDS ORDERED: *HR* Midazolam HCl 5 MG/5 ML VIAL IVP ONE (13:29)
--- NOTE | 2016-11-21 13:32 | Electrocardiograph Report ---
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
--- NOTE | 2016-11-21 13:34 | Electrocardiograph Report ---
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
[2016-11-22] MEDS: *HR* Heparin 5,000 UNIT/ML VIAL SQ SCH (06:17)
[2016-11-22 07:32] VITALS: BP 109/68
--- NOTE | 2016-11-22 08:40 | Discharge Summary ---
<Andrea Welch - Last Filed: 11/22/16 08:37> Date of Encounter: 11/22/16 Time of Encounter: 08:37 - Discharge Diagnosis (1) CAD (coronary artery disease) Priority: Primary Status: Acute Qualifiers: Coronary Disease-Associated Artery/Lesion type: [place] artery [place] vs. transplanted heart: [place] heart Associated angina: without angina Qualified Code(s): I25.10 - Atherosclerotic heart disease of [place] coronary artery without angina pectoris (2) Type 2 diabetes mellitus Priority: Secondary Status: Chronic Qualifiers: Diabetes mellitus complication status: without complication Diabetes mellitus professional services manager insulin use: without mcfp use Qualified Code(s): E11.9 - Type 2 diabetes mellitus without complications (3) HTN (hypertension) Priority: Secondary Status: Chronic Qualifiers: Hypertension type: essential hypertension Qualified Code(s): I10 - Essential (primary) hypertension (4) HLD (hyperlipidemia) Priority: Secondary Status: Chronic Qualifiers: Hyperlipidemia type: pure hypercholesterolemia Qualified Code(s): E78.00 - Pure hypercholesterolemia, unspecified; E78.0 - Pure hypercholesterolemia (5) Tobacco abuse Priority: Secondary Status: Chronic - Discharge Medications Prescriptions: Nicotine Patch [Nicoderm] 21 mg TD DAILY #30 patch.td24 Home Medications: metFORMIN [Glucophage] 1,000 mg PO BID 09/17/16 [History] Aspirin 81 mg PO DAILY #60 tab.chew 09/20/16 [Rx] Atorvastatin [Lipitor] 40 mg PO HS #30 tablet 09/20/16 [Rx] Metoprolol XL (24 HR) Succ [Toprol Xl] 25 mg PO DAILY #30 tab.er.24h 09/20/16 [ Rx] Clopidogrel [Plavix] 75 mg PO DAILY 11/19/16 [History] Famotidine [Heartburn Prevention] 20 mg PO BID 11/19/16 [History] Gabapentin [Neurontin] 300 mg PO BID 11/19/16 [History] Glimepiride [Amaryl] 2 mg PO DAILY 11/19/16 [History] Nicotine Patch [Nicoderm] 21 mg TD DAILY #30 patch.td24 11/22/16 [Rx] Allergies/Adverse Reactions: Allergies guaifenesin [From Robitussin] Allergy (Verified 11/19/16 16:54) Hives Procedures/tests Complete & Pending: Procedures Performed prior 72 hours Category Date Time Status CL Cardiac Catheterization [CL] Routine Engineering Lab Technician 11/21/16 09:38 Ordered ECG 12 lead ECG [ECG] Routine Y 11/20/16 10:42 Completed ECG 12 lead ECG [ECG] Routine Y 11/21/16 14:56 Ordered Date of admission: 11/19/16 17:30 Primary care physician: Doris Stanley CNP Consults: 11/19/16 19:20 Consult to Cardiology [CONS] Routine Comment: Consulting Provider: Carol Johnson Reason for Consult: CP Call Completed: Yes 11/22/16 07:52 Consult to Cardiac Rehabilitation-Phase1 [CONS] Routine Comment: Reason for Consult: CAD, PCI to ramus Call Completed: No Discharging clinician: Andrea Welch Anticipated date of discharge: 11/22/16 - Patient Status Disposition: Home, Self-Care Condition: Good Functional capacity at discharge: independent ambulation Overall status at discharge: patient is progressing back to baseline - Discharge Instructions Instructions: Left Heart Catheterization (DC) Follow Up With: Carol Johnson [Provider Group] (1-2 weeks office will call patient at home with appointment) Doris Stanley CNP [Primary Care Provider] - 11/25/16 9:45 am Forms: Inpatient Work/School Release Additional Instructions: Please follow-up with your primary care physician as scheduled. Please follow up with cardiology. Please hold your Imdur until seen by cardiology. Please continue your other home medications including aspirin and Plavix. Please do not return from work until seen by your primary care physician. Please return for any new or worsening symptoms. - Diet and Activity Activity: increase activity as tolerated Diet: diabetic diet, low salt diet Interval History: Patient seen and examined at bedside. Patient is chest pain-free at this time. Patient states that this is the best he has felt in years. Denies any fever, chills, groin pain, shortness of breath, diaphoresis. Hospital course: Mr. Saleh is a 46 year old male with history of coronary artery disease presented with chest pain. Patient had a previous heart cath and there was concern that his ramus lesion was unamenable to PCI however LHC was performed during this admission and the patient had successful PCI of the ramus. Patient had significant relief of his symptoms. Patient will be discharged home in stable condition. - Time Spent with Patient Total time spent providing and/or coordinating discharge services: - Constitutional Vitals: Temp Pulse Resp BP Pulse Ox 98.1 F 62 15 109/68 98 11/22/16 07:28 11/22/16 07:28 11/22/16 07:28 11/22/16 07:28 11/22/16 07:28 General appearance: Present: cooperative, A&O X 3, pleasant, no acute distress, answers questions appropriately - Respiratory Respiratory exam: Present: CTAB. Absent: rales, rhonchi, wheezes - Cardiovascular Cardiovascular exam: Present: RRR. Absent: gallop, rubs, systolic murmur - GI/Abdominal GI/Abdominal exam: Present: normal bowel sounds, soft. Absent: distended, tenderness - Extremities Exam Extremities exam: Present: warm. Absent: pedal edema, tenderness - Neurological Exam Neurological exam: Present: alert, CN II-XII intact, oriented X3, no focal deficits <Lizzy,Ahmet P - Last Filed: 11/22/16 12:42> Date of Encounter: 11/22/16 Procedures/tests Complete & Pending: Procedures Performed prior 72 hours Category Date Time Status CL Cardiac Catheterization [CL] Routine Engineering Lab Technician 11/21/16 09:38 Ordered ECG 12 lead ECG [ECG] Routine Y 11/20/16 10:42 Completed ECG 12 lead ECG [ECG] Routine Y 11/21/16 14:56 Ordered Date of admission: 11/19/16 17:30 Primary care physician: Doris Stanley CNP Consults: 11/19/16 19:20 Consult to Cardiology [CONS] Routine Comment: Consulting Provider: Cardiology [facility] Reason for Consult: CP Call Completed: Yes 11/22/16 07:52 Consult to Cardiac Rehabilitation-Phase1 [CONS] Routine Comment: Reason for Consult: CAD, PCI to ramus Call Completed: No Hospital course: Mr. Saleh is a 46 year old male - Time Spent with Patient Total time spent providing and/or coordinating discharge services: - Constitutional Vitals: Temp Pulse Resp BP Pulse Ox 98.1 F 62 15 109/68 98 11/22/16 07:28 11/22/16 07:28 11/22/16 07:28 11/22/16 07:28 11/22/16 09:15 - Attending Attestation I examined this patient and my medical decision-making was reviewed with the PLASTIC EXTRUSION OPERATOR/PA/Advanced Practice Nurse/Resident Physician. I agree with the documented findings, disposition and treatment plan as described except to the extent set forth below.
[2016-11-22] MEDS: Gabapentin 300 MG CAPSULE PO SCH (09:28)
[2016-11-22] MEDS: Isosorbide MONOnitrate (24 HR) 30 MG TAB.ER.24H PO SCH (09:28)
[2016-11-22] MEDS: Aspirin 81 MG TAB.CHEW PO SCH (09:28)
[2016-11-22] MEDS: Metoprolol XL (24 HR) Succ 25 MG TAB.ER.24H PO SCH (09:28)
[2016-11-22] MEDS: Nicotine 21 MG PATCH.TD24 TD SCH (09:29)
[2016-11-22] MEDS: Pantoprazole 40 MG VIAL IVP SCH (09:29)
[2016-11-22] MEDS: Insulin LISPRO 300 UNITS/3 ML VIAL SQ SCH (09:29)
--- NOTE | 2016-11-22 10:34 | Cardiology Progress Note ---
Date of Encounter: 11/22/16 Time of Encounter: 09:00 Assessment and Plan (1) Chest pain Current Visit: Yes Status: Acute Per cardiology: -Patient with atypical chest pain that started at rest. -Patient denies aggervating or alleviating factors. -Patient reports increased use of SL nitro at home. STates nitro lessens pain, but does not alleviate pain -Troponins 0x3. -[facility] 08/2016 with stenosis that was unable to be ammended. -On imdur and beta vincent. -Currently chest pain free. -Will continue to monitor in outpatient setting. -Discussed with regarding imdur. Patient states he will monitor symptoms and decide if he will continue imdur or not. Will be re-evalutaed in outpatient setting. Qualifiers: Chest pain type: other chest pain Qualified Code(s): R07.89 - Other chest pain; R07.8 - Other chest pain (2) CAD (coronary artery disease) Current Visit: Yes Status: Chronic Per cardiology: -KNown CAD with abnorma stress test and subsequent [facility] 08/2016 with 50% mid LAD stenosis, 80-90% ramus, unable to be amended to PCI at that time, 20% mid RCA, 60% PDA. -ON asa, statin, beta vincent, imdur, and plavix. Has SL nitro at home. -Patient now with recurrent chest pain and reports increased use of SL nitro. -Currently chest pain free. -Echo 08/2016 LVEF 45-50%, mild global left ventricular systolic dysfunction, no significant valvular dysfunction, all argueta hypokinetic. -[facility] 11/22/16 with 99% ramus stenosis. RENA x1 was placed. OF note, per review of unofficial report has 50% LAD stenosis. -Recommend dual anti-platelet therapy for at least 1 year. -Patient and state understanding. -Cardiology will sign off and will follow in outpatient setting. Follow up set. -WOrk excuse given for 1 week. No return to work given at this time. Patient will be re-evaluated in outpatient setting. Qualifiers: Coronary Disease-Associated Artery/Lesion type: [place] artery [place] vs. transplanted heart: [place] heart Associated angina: with unspecified angina Qualified Code(s): I25.119 - Atherosclerotic heart disease of [place] coronary artery with unspecified angina pectoris (3) HLD (hyperlipidemia) Current Visit: Yes Status: Chronic Per cardiology: -Known hyperlipidemia. -On statin. -Will continue to monitor in outpatient setting. Qualifiers: Hyperlipidemia type: pure hypercholesterolemia Qualified Code(s): E78.00 - Pure hypercholesterolemia, unspecified; E78.0 - Pure hypercholesterolemia (4) HTN (hypertension) Current Visit: Yes Status: Chronic Per cardiology: -KNown HTN. ] -BPs 100-110s systolic. -ON beta vincent. -Will continue to monitor in outpatient setting. Qualifiers: Hypertension type: essential hypertension Qualified Code(s): I10 - Essential (primary) hypertension (5) Cardiomyopathy Current Visit: Yes Status: Chronic Per cardiology: -LVEF 45-50% per echo as above. -On beta vincent. -Bps 100s systolic. -Unable to add jillian inhibitor at this time, due to low Bp. -Recommend adding jillian inhibitor once BP will tolerate. -Will monitor in outpatient setting. Qualifiers: Cardiomyopathy type: unspecified Qualified Code(s): I42.9 - Cardiomyopathy , unspecified (6) Tobacco abuse Current Visit: Yes Status: Chronic Per cardiology: -Known tobacco abuse. -Smokes about 1ppd. -I spent 3 minutes reviewing smoking cessation education with patient. -Pateint is being discharged on nicotine patch per primary service and states he is going to quit. Discussion w patient/family: The assessment and plan as outlined above was discussed with the patient and/or family members who expressed understanding and agreement. All questions were answered. Thank you for involving us in the care of your patient. Please call with any questions. Discussed and reviewed with . Subjective Principal diagnosis: chest pain Interval history: Patient with recurrent chest pain. Patient underwent LHC yesterday with RENA x1 to ramus. Patient denies chest pain, shortness of breath, or fatigue. Patient reports he feels better than he has in years. Patient denies issues walking. Objective Vital Signs, Last 4 Hours Temp Pulse Resp BP Pulse Ox 11/22/16 07:28 98.1 F 62 15 109/68 98 General: Conversant, No Apparent Distress HEENT: Atraumatic, Normocephaly, Mucus Membranes Moist Neck: No JVD, Normal carotid pulses Cardiac: Reg Rate and Rhythm, Normal S1 and S2, No Murmur Lungs: Normal Breath Sounds, No Wheeze, Rales, Rhonchi Neuro: Alert and responsive, No focal deficits noted Abdomen: Soft, Non-Tender Skin: No rashes noted on visualized skin, Other (Right groin access site without hematoma or ecchymosis. ) Musculoskeletal: No Chest Wall Tenderness Extremities: No Clubbing, No Cyanosis, No Edema, Normal Pulses Results 11/20/16 03:49 11/20/16 03:49 Active Medications Acetaminophen (Tylenol) 650 mg PO Q6HR PRN PRN Reason: Mild Pain (1-3) Stop: 05/21/17 19:05 Hydrocodone Bitart/Acetaminophen ([place] 5-325 Mg) 1 tab PO Q4HR PRN PRN Reason: Moderate Pain (4-6) Stop: 05/21/17 19:05 Aspirin (Aspirin) 81 mg PO DAILY [facility] Stop: 05/22/17 09:01 Last Admin: 11/22/16 09:28 Dose: 81 mg Atorvastatin Calcium (Lipitor) 40 mg PO HS [facility] Stop: 05/21/17 21:01 Last Admin: 11/21/16 20:28 Dose: 40 mg Clopidogrel Bisulfate (Plavix) 75 mg PO DAILY [facility] Stop: 05/22/17 09:01 Last Admin: 11/22/16 09:29 Dose: 75 mg Dextrose/Water (Dextrose 50% (Syg)) 25 ml IVP AD PRN PRN Reason: Hypoglycemia Stop: 05/21/17 19:20 Gabapentin (Neurontin) 300 mg PO BID [facility] Stop: 05/21/17 21:01 Last Admin: 11/22/16 09:28 Dose: 300 mg Glucagon (Glucagen) 1 mg IM ONCE PRN PRN Reason: Hypoglycemia Stop: 05/21/17 19:20 Glucose (Gluctose) 15 gm PO ONCE PRN PRN Reason: Hypoglycemia Stop: 05/21/17 19:20 Glucose (Gluctose) 30 gm PO ONCE PRN PRN Reason: Hypoglycemia Stop: 05/21/17 19:20 Heparin Sodium (Porcine) (Heparin) 5,000 unit SQ Q8HCO [facility] Stop: 05/21/17 22:01 Last Admin: 11/22/16 06:17 Dose: 5,000 unit Dextrose (Dextrose 5%) 1,000 mls @ 100 mls/hr IVC .Q10H PRN PRN Reason: HYPOGLYCEMIA Stop: 05/21/17 19:20 Insulin Human Lispro (Humalog) 0 units SQ TIDAC [facility] PRN Reason: Protocol Stop: 05/22/17 07:31 Last Admin: 11/22/16 09:29 Dose: Not Given Insulin Human Lispro (Humalog) 0 units SQ HS [facility] PRN Reason: Protocol Stop: 05/21/17 21:01 Last Admin: 11/21/16 20:39 Dose: 3 units Isosorbide Mononitrate (Imdur) 90 mg PO DAILY [facility] Stop: 05/23/17 09:01 Last Admin: 11/22/16 09:28 Dose: 90 mg Metoprolol Succinate (Toprol Xl) 25 mg PO DAILY [facility] Stop: 05/22/17 09:01 Last Admin: 11/22/16 09:28 Dose: 25 mg Morphine Sulfate (Morphine Sulfate) 2 mg IVP Q4HR PRN PRN Reason: Severe Pain (7-10) Stop: 05/21/17 19:05 Naloxone HCl (Narcan) 0.4 mg IVP Q2MIN PRN PRN Reason: Opioid Reversal Stop: 05/21/17 19:05 Nicotine (Nicoderm) 21 mg TD DAILY [facility] PRN Reason: Protocol Stop: 05/22/17 21:01 Last Admin: 11/22/16 09:29 Dose: 21 mg Nitroglycerin (Nitroglycerin) 0.4 mg SL Q5MIN PRN PRN Reason: Chest Pain Stop: 05/21/17 15:09 Last Admin: 11/19/16 16:52 Dose: 0.4 mg Ondansetron HCl (Zofran) 4 mg IVP Q8HR PRN PRN Reason: Nausea And Vomiting Stop: 05/21/17 19:05 Pantoprazole Sodium (Protonix) 40 mg IVP DAILY [facility] Stop: 05/21/17 19:16 Last Admin: 11/22/16 09:29 Dose: 40 mg - Imaging and Cardiology Chest Xray: report reviewed Echo: report reviewed Cardiac cath: report reviewed - EKG Interpretation EKG results cardiology: other (Telemetry reviewed with average HR 73, sinus rhythm. PACs noted.) Consult Discharge Plan - Plan Instructions: Left Heart Catheterization (DC) Additional Instructions: Please follow-up with your primary care physician as scheduled. Please follow up with cardiology. Please hold your Imdur until seen by cardiology. Please continue your other home medications including aspirin and Plavix. Please do not return from work until seen by your primary care physician. Please return for any new or worsening symptoms. Referrals: Cardiology [facility] [Provider Group] (1-2 weeks office will call patient at home with appointment) Doris Stanley CNP [Primary Care Provider] - 11/25/16 9:45 am Prescriptions: Nicotine Patch [Nicoderm] 21 mg TD DAILY #30 patch.td24
--- NOTE | 2016-11-22 14:31 | Invasive Diagnostic Lab ---
Name: Andrea Saleh Date of Study: 11/21/2016 Date: 1970 Ht: 179.8 cm /70.9 in Medical Record#: [id number] Age: 46 Wt: 94. kg / 207.23 lb Account/Order#: [id number] Gender: Male BSA: 2.14 Order #: [id number] Fluoro Dose: 1424 mGy BMI: 29.01 Procedure Physician: Jesus Garcia MD, [facility] Referring MD: Referring MD: Procedures Performed: LEFT HEART CATH PCI Single Major Vessel / PCI Chronic total Occlusion Indications: Unstable Angina, Abnormal stress test Impressions: There is severe one vessel coronary artery disease. There is mild LV Dysfunction EF 45% Patient had successful PTCA/Drug-Eluting Stent placement in the Ramus. 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 Recommendations: Optimal medical therapy of patient's disease. Aggressive risk factor modification. Patient being referred for cardiac rehab. History/Risk Factors: CAD GERD Diabetes Hypertension Dyslipidemia Current/Recent Smoker Procedure Access obtained in the right Femoral artery by percutaneous puncture Patient had successful PTCA/Drug-Eluting Stent placement in the Ramus. Complications: None Contrast: Isovue 100ml Closure Device: Manual Compression Hemodynamics: Pressures Site Systolic/ A Wave Diastolic/ V Wave End Diastolic/ Mean HR AO 128 101 112 83 AO 126 96 110 73 LV 141 10 25 75 LV 117 16 42 77 AO 126 84 102 77 AO 119 84 101 64 AO 101 81 91 76 LV Ventriculography Ejection Method: LV Gram Ejection Fraction: 45% Wall Motion: PERSAUD Anterobasal Normal Anterolateral Severe Hypokinesis Apical: Normal Inferoapical Normal Inferobasal Mild Hypokinesis Coronary Dominance: right Lesion Findings/Interventions * Left Main Coronary Artery The LMCA is angiographically free of disease. * Left Anterior Descending There is a 50% stenosis in the Mid LAD after diagonal 1. * Circumflex The Circumflex is angiographically free of disease. The 1st Marginal is angiographically free of disease. * Ramus There is a 20 mm long, 99-100% stenosis in the Ramus with briding collateral / recannulization. The lesion has a RUSS flow of 1 from bridging collaterals and recannulization and has no thrombus present. An intervention was performed on the Ramus with a final stenosis of 0%. There were no lesion complications. The final RUSS flow was 3. This lesion is noted as a DEVULCANIZER CHARGER. * Right Coronary Artery The RCA is angiographically free of disease. The Right PDA is angiographically free of disease. Interventional Device(s) Vessel Segment Type Name Diameter (mm) Length (mm) Ramus Balloon Cartridge Loading Operator Monorail 1.2 12 Ramus Balloon Emerge OTW 1.2 15 Ramus Balloon Emerge Monorail 2 15 Ramus Drug Eluting Stent Synergy 2.25 20 Ramus Balloon NC Emerge 2.5 15 Updated by Radha Monroy RT (R) on 11/21/2016 2:59:49 PM Jesus Garcia MD, FACC electronically signed on 11/22/2016 2:27:12 PM with status of Final
== END 2016-11-22 12:15 | disposition home or self-care (01) ==
LOC: EMEROO 14:18 → 3BNU 14:18 → SUATTDRO 19:04 → 2NENU 11-21 16:36
PROVIDERS: ADMIT Internal Medicine; ATTEND Internal Medicine

== ENCOUNTER 2017-03-14 11:37 | Observation (INO) ==
[2017-03-14] MEDS ORDERED: Nitroglycerin 0.4 MG TAB.SUBL SL ONE (11:45)
[2017-03-14 12:08] LABS: Basophils % 0.3 %; Eosinophils % 0.1 %; Hematocrit 43.6 % (37.5-50.1); Immature Granulocytes % 0.2 % (0-4); Immature Platelets 2.9 % (1.1-6.1); Lymphocytes # 2.1 K/mcL (0.6-4.6); Lymphocytes % 15.2 %; Mean Corpuscular HGB Conc 34.4 g/dL (31.6-35.5); Mean Corpuscular Hemoglobin 31.8 pg (28.0-33.3); Mean Corpuscular Volume 92.4 fL (83.0-100.0); Mean Platelet Volume 9.3 fL (9.4-12.4); Monocytes # 0.6 K/mcL (0.0-1.3); Monocytes % 4.1 %; Neutrophils # 11.1 K/mcL (1.6-8.9); Platelet Count 296 K/mcL (140-400); Red Blood Count 4.72 M/mcL (4.19-5.50); Red Cell Distribution Width 12.9 % (11.5-14.5); Segmented Neutrophils % 80.1 %
--- NOTE | 2017-03-14 12:11 | Emergency Department Note ---
Disposition Clinical Impression: Chest pain Qualifiers: Chest pain type: unspecified Qualified Code(s): R07.9 - Chest pain, unspecified Disposition: Admitted As Inpatient Condition: Fair Time of Disposition: 14:41 Chest Pain HPI - General Chief Complaint: ED Chest Pain Stated Complaint: CP Time Seen by Provider: 03/14/17 11:38 Source: patient Limitations: no limitations Vital Signs Reviewed: Yes Nursing Notes Reviewed: Yes - History of Present Illness HPI Narrative: 46-year-old male history of CAD, hypertension, hyperlipidemia presents plan chest pain at rest since this morning. Patient has pain radiating into his back. He states this feels similar to his previous episodes of angina, he had a stent placed in November 05. Patient states the pain is 8 out of 10 and was improved after he took 3 sublingual nitroglycerin at home. Subsequently his pain is returns became in the emergency department for evaluation, denies any cough, hemoptysis or leg swelling. Denies recent fevers or chills Pt complaint: chest pain Onset (ago): hour(s) Duration: intermittent Onset: during rest Pain Location: substernal, left chest Severity: moderate Severity scale (1-10): 8 Pain Radiation: back Improves with: nothing Worsens with: nothing Associated symptoms: Reports: nausea. Denies: vomiting, dyspnea, sense of impending doom Treatments prior to arrival chest pain: aspirin, nitroglycerin - Related Data Home Medications Medication Instructions Recorded Confirmed metFORMIN [Glucophage] 1,000 mg PO BID 09/17/16 03/14/17 Clopidogrel [Plavix] 75 mg PO DAILY 11/19/16 03/14/17 Famotidine [Heartburn Prevention] 20 mg PO BID 11/19/16 03/14/17 Gabapentin [Neurontin] 300 mg PO 0900,1200 11/19/16 03/14/17 Glimepiride [Amaryl] 2 mg PO DAILY 11/19/16 03/14/17 Gabapentin [Neurontin] 600 mg PO HS 03/14/17 03/14/17 Isosorbide MONOnitrate (24 HR) 90 mg PO DAILY 03/14/17 03/14/17 [Imdur] Lisinopril 2.5 mg PO DAILY 03/14/17 03/14/17 glipiZIDE [Glucotrol] 5 mg PO DAILY 03/14/17 03/14/17 Previous Rx's Medication Instructions Recorded Aspirin 81 mg PO DAILY #60 tab.chew 09/20/16 Atorvastatin [Lipitor] 40 mg PO HS #30 tablet 09/20/16 Metoprolol XL (24 HR) Succ [Toprol 25 mg PO DAILY #30 tab.er.24h 09/20/16 Xl] Nicotine Patch [Nicoderm] 21 mg TD DAILY #30 patch.td24 11/22/16 Allergies Allergy/AdvReac Type Severity Reaction Status Date / Time guaifenesin [From Robitussin] Allergy Hives Verified 03/14/17 14:10 All systems ED: reviewed and negative except as stated. Constitutional: Denies: fever, chills Eyes: Denies: eye pain ENT ED: Denies: ear pain Cardiovascular: Reports: chest pain Respiratory: Denies: cough, dyspnea Gastrointestinal: Reports: nausea. Denies: abdominal pain, vomiting Genitourinary: Denies: urgency Musculoskeletal: Denies: back pain Integumentary: Denies: rash, abrasion Neurological: Denies: headache Psychiatric: Denies: anxiety Chest Pain PMH - Past Medical History Medical history: Reports: coronary artery disease, diabetes, GERD, hyperlipidemia, hypertension, kidney stones, other Surgical history: Reports: appendectomy, cholecystectomy, orthopedic, other Psychiatric history: Reports: no psych history - Social History Smoking Status: Current every day smoker Alcohol use: Reports: none Drug use: Reports: marijuana Physical Exam Constitutional: Middle-aged male, appears mildly uncomfortable. stable vital signs Eyes: PERRLA, sclera anicteric ENT & Mouth: MMM Neck: normal inspection, neck is supple Resp: CTA bilaterally, no resp distress CV: RRR, no m/g/r GI: normal inspection, soft, no guarding or rigidity Neuro: A&O3, CNII-XII grossly intact, COBOS Skin: on limited exam, skin intact with no rashes or lesions - General Limitations: no limitations General appearance: alert Course Course Narrative: Referral male with history of CAD hypertension hyperlipidemia and stent placement response to nitroglycerin at home will start nitroglycerin drip after nitroglycerin trial here in the emergency department chest pain workup initiated - Reevaluation(s) Reevaluation #1: Started on Nitroglycerin gtt consulted and spoke with Dr Sparks, agrees plan nitroglycerin drip trend enzymes, no on heparinization at this time. HEART Score of 4 Time: 14:39 Vital Signs Temperature 98.0 F 03/14/17 11:41 Pulse Rate 87 03/14/17 11:41 Respiratory Rate 18 03/14/17 11:41 Blood Pressure 128/78 03/14/17 11:41 O2 Sat by Pulse Oximetry 98 03/14/17 11:41 Temperature 97.7 F 03/14/17 11:47 Pulse Rate 63 03/14/17 14:06 Respiratory Rate 16 03/14/17 14:06 Blood Pressure 126/67 03/14/17 14:06 O2 Sat by Pulse Oximetry 100 03/14/17 14:06 Oxygen Delivery Oxygen Delivery Nasal Cannula Chest Pain - Differential Diagnosis Likely: fracture of rib, atypical chest pain - Medical Records Medical records reviewed: Yes I reviewed the patient's medical records. - Lab Data Lab results reviewed: Yes I reviewed the patient's lab results. Result diagrams: 03/14/17 12:00 03/14/17 12:00 Lab Results 03/14/17 03/14/17 03/14/17 Range/Units 12:00 12:00 12:00 WBC 13.9 H (4.3-11.1) K/mcL RBC 4.72 (4.19-5.50) M/mcL Hgb 15.0 (12.9-16.9) g/dL Hct 43.6 (37.5-50.1) % MCV 92.4 (83.0-100.0) fL MCH 31.8 (28.0-33.3) pg MCHC 34.4 (31.6-35.5) g/dL RDW 12.9 (11.5-14.5) % Plt Count 296 (140-400) K/mcL MPV 9.3 L (9.4-12.4) fL Immature Gran % 0.2 (0-4) % Seg Neutrophils % 80.1 % Lymphocytes % 15.2 % Monocytes % 4.1 % Eosinophils % 0.1 % Basophils % 0.3 % Neutrophils # 11.1 H (1.6-8.9) K/mcL Lymphocytes # 2.1 (0.6-4.6) K/mcL Monocytes # 0.6 (0.0-1.3) K/mcL Eosinophils # 0.0 (0.0-0.6) K/mcL Basophils # 0.0 (0.0-0.2) K/mcL Immature Plt Fraction 2.9 (1.1-6.1) % Sodium 140 (136-145) mEq/L Potassium 4.3 (3.5-4.5) mEq/L Chloride 105 (98-109) mEq/L Carbon Dioxide 27 (19-29) mEq/L BUN 11 (8-26) mg/dL Creatinine 0.91 (0.72-1.25) mg/dL Est GFR ( Amer) > 60 (> 60) Est GFR (Non-Af Amer) > 60 (> 60) BUN/Creatinine Ratio 12 (6-26) Glucose 176 H (70-99) mg/dL Calculated Osmolality 294 (280-300) Calcium 9.8 (8.6-10.8) mg/dL Troponin I 0.00 (0-0.03) ng/mL - Radiology Data Radiology results reviewed: Yes I reviewed the patient's radiology results. Chest X-Ray 03/14/17 11:45 IMPRESSION: No evidence for acute cardiopulmonary process. D/ / Pancho Cheema MD / Pancho Cheema MD Interpreting Provider: Pancho Cheema MD - EKG Data EKG attestation: Yes I reviewed and interpreted this EKG. EKG shows normal: sinus rhythm Rate: normal (88bpm 124 TX QRS [address] segment changes) Rhythm: NSR Interpretation: nonspecific ST-T wave changes - Core Measures AMI Core Measures Followed: Yes Heart Score - Score History: Moderately Suspicious EKG: Non Specific repolarisation Disturbance Age: Less than 45 Risk Factors: Equal/Greater than 3 risk factor or history of atherosclerotic disease Troponin: Less than normal limit HEART Score Total: 4 Attestation Statement - Attestation Attestation: I examined this patient and my medical decision-making was reviewed with the Resident Physician. I agree with the documented findings, disposition and treatment plan as described except to the extent set forth below. Patient to the emergency Department complaining of chest pain. Onset this morning. History of coronary disease and stent placement. On examination he is in no acute distress. Lungs clear. Still experiencing pain. Plan. We will start him on a nitroglycerin drip. Cardiac workup. Likely admission.
[2017-03-14 12:21] LABS: BUN/Creatinine Ratio 12 (6-26); Blood Urea Nitrogen 11 mg/dL (8-26); Calcium 9.8 mg/dL (8.6-10.8); Carbon Dioxide 27 mEq/L (19-29); Chloride 105 mEq/L (98-109); Glucose 176 mg/dL (70-99); Osmolality,Calculated 294 (280-300); Potassium 4.3 mEq/L (3.5-4.5); Sodium 140 mEq/L (136-145); eGFR For African Americans > 60 (> 60); eGFR For Non-African Americans > 60 (> 60)
[2017-03-14] MEDS ORDERED: Ondansetron 4 MG/2 ML VIAL IVP ONE (12:37)
[2017-03-14] MEDS ORDERED: 0.9 % Sodium Chloride 500 ML IVC ONE ×2 (12:37→19:52)
[2017-03-14] MEDS ORDERED: Nitroglycerin 25 MG/250 ML INFUS..BTL IVC SCH ×2 (12:45→19:45)
--- NOTE | 2017-03-14 17:27 | Electrocardiograph Report ---
[facility] [employer] Test Date: 2017-03-14 Pat Name: Andrea Saleh Department: 104 Room: 2NE30 Gender: M Radiologic Tech: HERRERA : 1970 Requested By: Mathew Freeman Order Number: [id number] Reading MD: Palmer Gutiérrez DO Measurements Intervals [place] Rate: 88 P: 59 DC: 124 QRS: -75 QRSD: 99 T: 72 QT: 333 QTc: 379 Interpretive Statements SINUS RHYTHM WITH MARKED SINUS ARRHYTHMIA MARKED LEFT AXIS DEVIATION Electronically Signed On 03-14-2017 17:25:48 EDT by Palmer Gutiérrez DO
[2017-03-14] MEDS ORDERED: *HR* HYDROcodone/Acet 5/325 mg TABLET PO PRN (17:31)
[2017-03-14] MEDS ORDERED: Acetaminophen 325 MG TABLET PO PRN (17:31)
[2017-03-14] MEDS ORDERED: Naloxone 0.4 MG/ML INJ IVP PRN (17:31)
[2017-03-14] MEDS ORDERED: Ondansetron 4 MG/2 ML VIAL IVP PRN (17:31)
[2017-03-14] MEDS: Nicotine 21 MG PATCH.TD24 TD SCH (18:19)
--- NOTE | 2017-03-14 18:36 | Internal Med History&Physical ---
Date of Encounter: 03/14/17 Time of Encounter: 18:34 Assessment and Plan (1) Unstable angina Current visit: Yes Status: Acute Continue with nitro drip. Trend troponin. Heart monitor. Consult cardiology. Obtain echocardiogram. (2) Type 2 diabetes mellitus Current visit: No Status: Chronic Diabetic diet. Insulin sliding scale. Hold oral antidiabetic medication. Check A1c. Qualifiers: Diabetes mellitus complication status: without complication Diabetes mellitus snf insulin use: without snf use Qualified Code(s): E11.9 - Type 2 diabetes mellitus without complications (3) CAD (coronary artery disease) Current visit: No Status: Acute Continue with aspirin, Plavix, lisinopril, metoprolol and Lipitor. Continue with IV nitrates. Qualifiers: Coronary Disease-Associated Artery/Lesion type: [place] artery [place] vs. transplanted heart: [place] heart Associated angina: without angina Qualified Code(s): I25.10 - Atherosclerotic heart disease of [place] coronary artery without angina pectoris (4) HTN (hypertension) Current visit: No Status: Chronic Monitor blood pressure closely. Continue with lisinopril. Qualifiers: Hypertension type: essential hypertension Qualified Code(s): I10 - Essential (primary) hypertension (5) Tobacco abuse Current visit: No Status: Chronic I have provided smoking cessation counseling. We will offer nicotine replacement therapy. Internal Medicine - H&P: HPI Chief complaint: Chest pain Admitted From: Emergency Dept Plans for Post Hospital Care: Hospice - Home History of present illness: Mr. Saleh is a 46 year old male with past medical history significant for hypertension, diabetes, hyperlipidemia, coronary artery disease status post [place] who presented to the hospital for chest pain which he described as 8/10 in intensity, initially sharp than pressure-like precordial radiating to the left scapula and left side of the neck. Pain improved with sublingual nitroglycerin but then recurred. He was placed on a nitro drip in the emergency department and is currently chest pain-free. A 10 point review of systems was otherwise negative Past medical history as above Family history was reviewed with the patient. Social history: Reports smoking 10 cigarettes a day, occasional marijuana denies IV drug use, denies alcohol abuse. Past Med Surg Social Fam HX - Past Medical History Medical history: coronary artery disease, diabetes, GERD, hyperlipidemia, hypertension, kidney stones, other Psychiatric history: no psych history - Past Surgical History Surgical History: appendectomy, cholecystectomy, orthopedic, other - Social History Smoking Status: Current every day smoker Smokeless Tobacco Status: No Alcohol use: none Drug use: marijuana - Family History Sister Living Status: Still Living Hx Family Endocrine Disorder: Yes (DM) Mother Living Status: Still Living Hx Family Cardiac Disorders: Yes (HTN, MURMUR) Hx Family Respiratory Disorders: No Hx Family Cancer: No Hx Family GI Disorders: No Hx Family Endocrine Disorder: Yes (DIABETES) Hx Family Neuromuscular Disorders: No Hx Family Neurologic Disorders: No Hx Family HEENT Disorders: No Hx Family Autoimmune Disorders: No Hx Family Reproductive Disorders: No Hx Family Psychosocial Disorders: No Hx Family Medical Disorders: No Father Living Status: Hx Family Cardiac Disorders: No Hx Family Respiratory Disorders: No Hx Family Cancer: No Hx Family GI Disorders: No Hx Family Endocrine Disorder: No Hx Family Neuromuscular Disorders: No Hx Family Neurologic Disorders: No Hx Family HEENT Disorders: No Hx Family Autoimmune Disorders: No Hx Family Reproductive Disorders: No Hx Family Psychosocial Disorders: No Hx Family Medical Disorders: No Internal Medicine - H&P: Meds metFORMIN [Glucophage] 1,000 mg PO BID 09/17/16 [History] Aspirin 81 mg PO DAILY #60 tab.chew 09/20/16 [Rx] Atorvastatin [Lipitor] 40 mg PO HS #30 tablet 09/20/16 [Rx] Metoprolol XL (24 HR) Succ [Toprol Xl] 25 mg PO DAILY #30 tab.er.24h 09/20/16 [ Rx] Clopidogrel [Plavix] 75 mg PO DAILY 11/19/16 [History] Famotidine [Heartburn Prevention] 20 mg PO BID 11/19/16 [History] Gabapentin [Neurontin] 300 mg PO 0900,1200 11/19/16 [History] Glimepiride [Amaryl] 2 mg PO DAILY 11/19/16 [History] Nicotine Patch [Nicoderm] 21 mg TD DAILY #30 patch.td24 11/22/16 [Rx] Gabapentin [Neurontin] 600 mg PO HS 03/14/17 [History] Isosorbide MONOnitrate (24 HR) [Imdur] 90 mg PO DAILY 03/14/17 [History] Lisinopril 2.5 mg PO DAILY 03/14/17 [History] glipiZIDE [Glucotrol] 5 mg PO DAILY 03/14/17 [History] 3 Allergy/AdvReac Type Severity Reaction Status Date / Time guaifenesin [From [place]in] Allergy Hives Verified 03/14/17 14:10 All Systems PM: A 10-system review of systems was performed and is negative for pertinent findings except as documented above in the HPI. - Constitutional Vitals: Temp Pulse Resp BP Pulse Ox 98.1 F 74 16 117/76 100 03/14/17 15:24 03/14/17 15:24 03/14/17 15:24 03/14/17 15:24 03/14/17 15:24 General appearance: Present: A&O X 3 - Eye Eye exam: Present: PERRL, conjuntiva pink, sclera anicteric Pupils: Present: PERRL - Respiratory Respiratory exam: Present: CTAB. Absent: accessory muscle use, rales, rhonchi, wheezes - Cardiovascular Cardiovascular exam: Present: RRR, +S1, +S2. Absent: diastolic murmur, gallop, rubs, systolic murmur - GI/Abdominal GI/Abdominal exam: Present: normal bowel sounds, soft, no peritoneal signs. Absent: distended, tenderness - Extremities Exam Extremities exam: Present: warm, radial pulses palpable and symmetrical. Absent : calf tenderness, cyanotic, pedal edema - Skin Skin exam: Present: dry, intact Internal Med - H&P Results - Labs CBC & Chem 7: 03/14/17 12:00 03/14/17 12:00 Labs: Cardiac Enzymes 03/14/17 Range/Units 17:46 Troponin I 0.01 (0-0.03) ng/mL - EKG Data -: EKG Interpreted by Myself EKG shows normal: sinus rhythm, axis, QRS complexes, ST-T waves Rate: normal
[2017-03-14] MEDS ORDERED: D5% in Water 1,000 ML IVC PRN (19:15)
[2017-03-14] MEDS ORDERED: Dextrose Gel 15 GM PO PRN ×2 (19:15)
[2017-03-14] MEDS ORDERED: *HR* Dextrose 50 % in Water (Syg) 50 ML SYRINGE IVP PRN (19:15)
[2017-03-14] MEDS ORDERED: 0.9 % Sodium Chloride 500 ML ONE (19:58)
[2017-03-14] MEDS: Insulin LISPRO 300 UNITS/3 ML VIAL SQ SCH (20:08)
[2017-03-14] MEDS: Gabapentin 300 MG CAPSULE PO SCH (20:10)
[2017-03-14] MEDS: Famotidine 20 MG TABLET PO SCH (20:11)
[2017-03-14 20:20] LABS: Hemoglobin A1C 6.5 %
[2017-03-14] MEDS: Insulin DETEMIR 100 UNIT/ML X5UNITS SQ SCH (20:22)
[2017-03-15] MEDS ORDERED: 0.9 % Sodium Chloride 500 ML IVC ONE (03:17)
[2017-03-15] MEDS ORDERED: *HR* HYDROcodone/Acet 5/325 mg TABLET PO PRN (03:18)
[2017-03-15 04:55] LABS: Basophils # 0.1 K/mcL (0.0-0.2); Basophils % 0.5 %; Eosinophils # 0.1 K/mcL (0.0-0.6); Eosinophils % 1.2 %; Immature Granulocytes % 0.2 % (0-4); Lymphocytes # 1.8 K/mcL (0.6-4.6); Lymphocytes % 19.7 %; Mean Corpuscular HGB Conc 33.3 g/dL (31.6-35.5); Mean Corpuscular Hemoglobin 31.9 pg (28.0-33.3); Mean Corpuscular Volume 95.8 fL (83.0-100.0); Mean Platelet Volume 9.7 fL (9.4-12.4); Monocytes # 0.7 K/mcL (0.0-1.3); Monocytes % 7.5 %; Neutrophils # 6.5 K/mcL (1.6-8.9); Platelet Count 222 K/mcL (140-400); Red Blood Count 4.07 M/mcL (4.19-5.50); Red Cell Distribution Width 13.2 % (11.5-14.5); Segmented Neutrophils % 70.9 %
[2017-03-15 05:12] LABS: BUN/Creatinine Ratio 15 (6-26); Blood Urea Nitrogen 12 mg/dL (8-26); Calcium 8.6 mg/dL (8.6-10.8); Carbon Dioxide 29 mEq/L (19-29); Chloride 103 mEq/L (98-109); Glucose 133 mg/dL (70-99); Osmolality,Calculated 286 (280-300); Sodium 137 mEq/L (136-145); eGFR For African Americans > 60 (> 60); eGFR For Non-African Americans > 60 (> 60)
[2017-03-15] MEDS: Gabapentin 300 MG CAPSULE PO SCH ×3 (09:10→21:50)
[2017-03-15] MEDS: Aspirin 81 MG TAB.CHEW PO SCH (09:11)
[2017-03-15] MEDS: Famotidine 20 MG TABLET PO SCH ×2 (09:11→21:51)
[2017-03-15] MEDS: Metoprolol XL (24 HR) Succ 25 MG TAB.ER.24H PO SCH (09:11)
[2017-03-15] MEDS: Isosorbide MONOnitrate (24 HR) 30 MG TAB.ER.24H PO SCH (09:12)
[2017-03-15] MEDS: Nicotine 21 MG PATCH.TD24 TD SCH (09:13)
[2017-03-15] MEDS: Insulin LISPRO 300 UNITS/3 ML VIAL SQ SCH ×7 (09:13→22:03)
[2017-03-15] MEDS: Insulin DETEMIR 100 UNIT/ML X5UNITS SQ SCH ×2 (09:17→21:53)
--- NOTE | 2017-03-15 11:06 | Cardiology Consult Note ---
Date of Encounter: 03/15/17 Time of Encounter: 09:15 Assessment and Plan (1) Chest pain Current Visit: Yes Status: Acute Patient presents with chest pain at rest that is relieved with nitroglycerin, possible unstable angina. Initial EKG was read independently and negative for ischemia. Troponin is negative x 3. Patient reports symptoms are similar to his last episode of unstable angina, when LHC with RENA in ramus was performed on due to [place] PEN TURNER and corresponding wall motion abnormality. EF at the time was 45%. He reports compliance with anticoagulation since then. Plan for limited echo to access cardiac physiology and function today. Depending on echo results, patient might require LHC. Keep patient NPO for now. Qualifiers: Chest pain type: unspecified Qualified Code(s): R07.9 - Chest pain, unspecified (2) CAD (coronary artery disease) Current Visit: No Status: Acute The patient has history of CAD with RENA in ramus due to severe one vessel disease on 11/21/16. Continue with ASA, plavix, lisinopril, metoprolol, lipitor. Qualifiers: Coronary Disease-Associated Artery/Lesion type: [place] artery [place] vs. transplanted heart: [place] heart Associated angina: without angina Qualified Code(s): I25.10 - Atherosclerotic heart disease of [place] coronary artery without angina pectoris (3) HTN (hypertension) Current Visit: No Status: Chronic Hypertension is well controlled on home medication of lisinopril 2.5 PO daily and metoprolol 25mg PO daily. Continue currently management. Qualifiers: Hypertension type: essential hypertension Qualified Code(s): I10 - Essential (primary) hypertension (4) Tobacco abuse Current Visit: No Status: Chronic Patient is current smoker on nicotine patch. Educated patient on the importance of tobacco cessation, specially in the setting of CAD. Follow-up outpatient primary care. Discussion w patient/family: The assessment and plan as outlined above was discussed with the patient and/or family members who expressed understanding and agreement. All questions were answered. Thank you for involving us in the care of your patient. Please call with any questions. History of Present Illness Consult date: 03/15/17 Consult reason: Possile unstale angina Chief complaint: Chest pain History of present illness: Mr. Saleh is a 46 year old male with PMHx CAD, HTN, dyslipidemia, diabetes, presents for chest pain at rest x 1 day. Patient reports that he was working at [employer] when he experienced sudden sharp left-sided chest pain that radiates to left shoulder blade and back. He denies overexerting himself and reports chest pain started at rest. He also reports accompanying lightheadedness , nausea, and vomiting x3 after onset of chest pain. He was recently admitted for similar symptoms in October, and LHC with RENA PCI in ramus was placed. He reports sublingual nitroglycerin improved symptoms of chest pain temporarily but he continued to feel chest discomfort and decided to come to ED. Reports pain 8/10. Currently, his chest pain is resolved. Nitroglycerin drip was discontinued last night due to hypotensive episode of 85/44. He denies recurrence of chest pain since admission. Patient is a 28+ pack years current smoker, currently using nicotine patch. Denies alcohol or illicit drug intake. Surgical history of cholecystectomy and appendectomy. He denies fever, headaches, vision changes, palpitations, shortness of breath, cough, diarrhea, constipation, bleeding, difficulty voiding. Past Med Surg Social Fam HX - Past Medical History Medical history: coronary artery disease, diabetes, GERD, hyperlipidemia, hypertension, kidney stones, other Psychiatric history: no psych history - Past Surgical History Surgical History: appendectomy, cholecystectomy, orthopedic, other - Social History Smoking Status: Current every day smoker Smokeless Tobacco Status: No Alcohol use: none Drug use: marijuana - Family History Sister Living Status: Still Living Hx Family Endocrine Disorder: Yes (DM) Mother Living Status: Still Living Hx Family Cardiac Disorders: Yes (HTN, MURMUR) Hx Family Respiratory Disorders: No Hx Family Cancer: No Hx Family GI Disorders: No Hx Family Endocrine Disorder: Yes (DIABETES) Hx Family Neuromuscular Disorders: No Hx Family Neurologic Disorders: No Hx Family HEENT Disorders: No Hx Family Autoimmune Disorders: No Hx Family Reproductive Disorders: No Hx Family Psychosocial Disorders: No Hx Family Medical Disorders: No Father Living Status: Hx Family Cardiac Disorders: No Hx Family Respiratory Disorders: No Hx Family Cancer: No Hx Family GI Disorders: No Hx Family Endocrine Disorder: No Hx Family Neuromuscular Disorders: No Hx Family Neurologic Disorders: No Hx Family HEENT Disorders: No Hx Family Autoimmune Disorders: No Hx Family Reproductive Disorders: No Hx Family Psychosocial Disorders: No Hx Family Medical Disorders: No Medications and Allergies metFORMIN [Glucophage] 1,000 mg PO BID 09/17/16 [History] Aspirin 81 mg PO DAILY #60 tab.chew 09/20/16 [Rx] Atorvastatin [Lipitor] 40 mg PO HS #30 tablet 09/20/16 [Rx] Metoprolol XL (24 HR) Succ [Toprol Xl] 25 mg PO DAILY #30 tab.er.24h 09/20/16 [ Rx] Clopidogrel [Plavix] 75 mg PO DAILY 11/19/16 [History] Famotidine [Heartburn Prevention] 20 mg PO BID 11/19/16 [History] Gabapentin [Neurontin] 300 mg PO 0900,1200 11/19/16 [History] Glimepiride [Amaryl] 2 mg PO DAILY 11/19/16 [History] Nicotine Patch [Nicoderm] 21 mg TD DAILY #30 patch.td24 11/22/16 [Rx] Gabapentin [Neurontin] 600 mg PO HS 03/14/17 [History] Isosorbide MONOnitrate (24 HR) [Imdur] 90 mg PO DAILY 03/14/17 [History] Lisinopril 2.5 mg PO DAILY 03/14/17 [History] glipiZIDE [Glucotrol] 5 mg PO DAILY 03/14/17 [History] 3 Allergy/AdvReac Type Severity Reaction Status Date / Time guaifenesin [From Robitussin] Allergy Hives Verified 03/14/17 14:10 All Systems Review: A 10-system review of systems was performed and is negative for pertinent findings except as documented above in the HPI. - Constitutional Constitutional: chills, no fever(s), no headache(s), no night sweats, no weakness - EENT Eyes: no blurred vision Nose, mouth and throat: no sore throat - Cardiovascular Cardiovascular: chest pain at rest, lightheadedness, no diaphoresis, no radiating jaw, neck or arm pain, no leg edema, no palpitations, no rapid heart rate, no syncope - Respiratory Respiratory: no cough, no dyspnea - Gastrointestinal Gastrointestinal: no abdominal pain, no constipation, no diarrhea - Musculoskeletal Musculoskeletal: no muscle weakness - Integumentary Integumentary: no unusual bruising - Neurological Neurological: no loss of vision - Hematological/Lymphatic Hematologic/Lymphatic: no easy bleeding Physical Examination Vital Signs, Last 4 Hours Temp Pulse Resp BP Pulse Ox 03/15/17 07:18 97.6 F 65 16 111/67 97 General: Conversant, No Apparent Distress HEENT: Atraumatic, Normocephaly, Mucus Membranes Moist Neck: No JVD, Normal carotid pulses Cardiac: Normal S1 and S2, No Murmur, Other (Bradycardic (HR<60)) Lungs: Normal Breath Sounds, No Wheeze, Rales, Rhonchi Neuro: Alert and responsive, No focal deficits noted Abdomen: Soft, Non-Tender Skin: No rashes noted on visualized skin Musculoskeletal: No Chest Wall Tenderness Extremities: No Clubbing, No Cyanosis, No Edema, Normal Pulses Results 03/15/17 03:49 03/15/17 03:49 Lab Results 03/14/17 03/14/17 03/15/17 17:46 23:25 03:49 WBC 9.1 Hgb 13.0 D Hct 39.0 Plt Count 222 Sodium Potassium Chloride Carbon Dioxide BUN Creatinine Glucose Calcium Troponin I 0.01 0.00 03/15/17 03:49 WBC Hgb Hct Plt Count Sodium 137 Potassium 4.0 Chloride 103 Carbon Dioxide 29 BUN 12 Creatinine 0.82 Glucose 133 H Calcium 8.6 Troponin I Consult Discharge Plan - Plan Referrals: Doris Stanley, IT NETWORK ARCHITECT [Primary Care Provider] -
--- NOTE | 2017-03-15 16:16 | Internal Med Progress Note ---
<Andrea Reis - Last Filed: 03/15/17 16:31> Date of Encounter: 03/15/17 Time of Encounter: 08:40 - Assessment and plan (1) Chest pain Current Visit: Yes Status: Acute Assessment and plan: Chest pain and respiratory with nitroglycerin, resolved Initial EKG negative for ischemic changes Troponins negative 3 Echocardiogram demonstrates left ventricular ejection fraction of 45% Patient will undergo left heart catheterization with cardiology Qualifiers: Chest pain type: unspecified Qualified Code(s): R07.9 - Chest pain, unspecified (2) CAD (coronary artery disease) Current Visit: Yes Status: Chronic Assessment and plan: Coronary artery disease status post stent in 2016 Continue aspirin, Plavix, lisinopril, metoprolol, Lipitor Will follow cardiology recommendations Qualifiers: Coronary Disease-Associated Artery/Lesion type: [place] artery [place] vs. transplanted heart: [place] heart Associated angina: without angina Qualified Code(s): I25.10 - Atherosclerotic heart disease of [place] coronary artery without angina pectoris (3) HTN (hypertension) Current Visit: Yes Status: Chronic Assessment and plan: Hypertension is well controlled on current medications Qualifiers: Hypertension type: essential hypertension Qualified Code(s): I10 - Essential (primary) hypertension (4) Tobacco abuse Current Visit: Yes Status: Chronic Assessment and plan: Smoking cessation and education as discussed with patient Nicotine patch at this time (5) DVT prophylaxis Current Visit: No Status: Inactive Assessment and plan: Patient is low risk for DVT at this time and is ambulatory The patient should continue to ambulate periodically to prevent clot - Subjective Interval history: The patient is resting comfortably in bed at time of examination. He says that his chest pain has resolved over 90s on her having any at all. - Constitutional Vitals: Temp Pulse Resp BP Pulse Ox 98.2 F 64 97 108/76 100 03/15/17 15:21 03/15/17 16:09 03/15/17 16:09 03/15/17 16:09 03/15/17 15:21 General appearance: Present: A&O X 3 - Head Head exam: Present: atraumatic, normocephalic - Eye Eye exam: Present: PERRL, conjuntiva pink, sclera anicteric Pupils: Present: PERRL - Neck Neck exam general surgery: Present: supple, trachea midline. Absent: lymphadenopathy - Respiratory Respiratory exam: Present: CTAB. Absent: accessory muscle use, rales, rhonchi, wheezes - Cardiovascular Cardiovascular exam: Present: RRR, +S1, +S2. Absent: diastolic murmur, gallop, rubs, systolic murmur - GI/Abdominal GI/Abdominal exam: Present: normal bowel sounds, soft, no peritoneal signs. Absent: distended, tenderness - Extremities Exam Extremities exam: Present: warm, radial pulses palpable and symmetrical. Absent : calf tenderness, cyanotic, pedal edema Additional comments: Decreased hair distribution in distal LEs b/l - Neurological Exam Neurological exam: Present: CN II-XII intact, oriented X3, no focal deficits. Absent: pronater drift, facial droop, speech deficit - Skin Skin exam: Present: dry, intact Internal Medicine: Result - Labs CBC & Chem 7: 03/15/17 03:49 03/15/17 03:49 Labs: Short CBC 03/15/17 Range/Units 03:49 WBC 9.1 (4.3-11.1) K/mcL Hgb 13.0 D (12.9-16.9) g/dL Hct 39.0 (37.5-50.1) % Plt Count 222 (140-400) K/mcL Neutrophils # 6.5 (1.6-8.9) K/mcL BMP 03/15/17 03:49 Sodium 137 Potassium 4.0 Chloride 103 Carbon Dioxide 29 BUN 12 Creatinine 0.82 Glucose 133 H Calcium 8.6 Cardiac Enzymes 03/14/17 03/14/17 Range/Units 17:46 23:25 Troponin I 0.01 0.00 (0-0.03) ng/mL - Impressions Impressions Echocardiogram Limited Views 03/15/17 19:16 Impressions: LVEF 45%. Mild global LV systolic dysfunction. Left Ventricular Wall Motion: Rest Echo Findings The apex, apical inferior, mid inferior, basal inferior, apical anterior, mid anterior, basal anterior, apical septal, mid inferior septal, basal inferior septal, apical lateral, mid anterior lateral, basal anterior lateral, mid anterior septal, mid inferior lateral, basal anterior septal and basal inferior lateral argueta were hypokinetic. Findings: Study Quality * Technically adequate exam. ECG Findings * Normal sinus rhythm. Left Ventricle * LVEF 45%. * Normal LV size. Right Ventricle * RV size is normal. Function not well evaluated. Consult Discharge Plan - Plan Referrals: Doris Stanley, PREVENTIVE MAINTENANCE COORDINATOR [Primary Care Provider] - <Dominick Fajardo - Last Filed: 03/15/17 18:15> Date of Encounter: 03/15/17 - Assessment and plan (1) Unstable angina Current Visit: Yes Status: Acute (2) CAD (coronary artery disease) Current Visit: Yes Status: Chronic Qualifiers: Coronary Disease-Associated Artery/Lesion type: [place] artery [place] vs. transplanted heart: [place] heart Associated angina: without angina Qualified Code(s): I25.10 - Atherosclerotic heart disease of [place] coronary artery without angina pectoris (3) HTN (hypertension) Current Visit: Yes Status: Chronic Qualifiers: Hypertension type: essential hypertension Qualified Code(s): I10 - Essential (primary) hypertension (4) Tobacco abuse Current Visit: Yes Status: Chronic (5) DM (diabetes mellitus) Current Visit: No Status: Chronic Qualifiers: Diabetes mellitus type: type 2 Diabetes mellitus complication status: with circulatory complication Diabetes mellitus complication detail: with other circulatory complications Diabetes mellitus custodial insulin use: without custodial use Qualified Code(s): E11.59 - Type 2 diabetes mellitus with other circulatory complications (6) HLD (hyperlipidemia) Current Visit: No Status: Chronic Qualifiers: Hyperlipidemia type: mixed hyperlipidemia Qualified Code(s): E78.2 - Mixed hyperlipidemia - Constitutional Vitals: Temp Pulse Resp BP Pulse Ox 98.2 F 64 97 108/76 100 03/15/17 15:21 03/15/17 16:09 03/15/17 16:09 03/15/17 16:09 03/15/17 17:00 Internal Medicine: Result - Labs CBC & Chem 7: 03/15/17 03:49 03/15/17 03:49 Labs: Short CBC 03/15/17 Range/Units 03:49 WBC 9.1 (4.3-11.1) K/mcL Hgb 13.0 D (12.9-16.9) g/dL Hct 39.0 (37.5-50.1) % Plt Count 222 (140-400) K/mcL Neutrophils # 6.5 (1.6-8.9) K/mcL BMP 03/15/17 03:49 Sodium 137 Potassium 4.0 Chloride 103 Carbon Dioxide 29 BUN 12 Creatinine 0.82 Glucose 133 H Calcium 8.6 Cardiac Enzymes 03/14/17 03/14/17 Range/Units 17:46 23:25 Troponin I 0.01 0.00 (0-0.03) ng/mL - Impressions Impressions Echocardiogram Limited Views 03/15/17 19:16 Impressions: LVEF 45%. Mild global LV systolic dysfunction. Left Ventricular Wall Motion: Rest Echo Findings The apex, apical inferior, mid inferior, basal inferior, apical anterior, mid anterior, basal anterior, apical septal, mid inferior septal, basal inferior septal, apical lateral, mid anterior lateral, basal anterior lateral, mid anterior septal, mid inferior lateral, basal anterior septal and basal inferior lateral argueta were hypokinetic. Findings: Study Quality * Technically adequate exam. ECG Findings * Normal sinus rhythm. Left Ventricle * LVEF 45%. * Normal LV size. Right Ventricle * RV size is normal. Function not well evaluated. - Attending Attestation I examined this patient and my medical decision-making was reviewed with the Resident Physician on 03/15/17. I agree with the documented findings, disposition and treatment plan as described except to the extent set forth below. Mr. Saleh is currently in observation for chest pain. He remains moderate to high risk. He is to have cath today. Mr Saleh feels OK. He is not in pain at this time. Did not sleep well. No fever or chills. Exam Alert. Comfortable Heart reg No wheeze Abd soft Mucus membranes dry No edema I/P 1. [place] 2. CAD Further diagnoses and plan as above. Cath today.
[2017-03-16 05:26] LABS: BUN/Creatinine Ratio 12 (6-26); Blood Urea Nitrogen 10 mg/dL (8-26); Calcium 8.9 mg/dL (8.6-10.8); Carbon Dioxide 30 mEq/L (19-29); Chloride 104 mEq/L (98-109); Glucose 160 mg/dL (70-99); Osmolality,Calculated 292 (280-300); Potassium 4.3 mEq/L (3.5-4.5); Sodium 140 mEq/L (136-145); eGFR For African Americans > 60 (> 60); eGFR For Non-African Americans > 60 (> 60)
[2017-03-16] MEDS: Insulin LISPRO 300 UNITS/3 ML VIAL SQ SCH ×7 (08:42→21:23)
[2017-03-16] MEDS: Famotidine 20 MG TABLET PO SCH ×2 (08:46→21:20)
[2017-03-16] MEDS: Gabapentin 300 MG CAPSULE PO SCH ×3 (08:47→21:20)
[2017-03-16] MEDS: Nicotine 21 MG PATCH.TD24 TD SCH (08:47)
[2017-03-16] MEDS: Aspirin 81 MG TAB.CHEW PO SCH (08:47)
[2017-03-16] MEDS: Metoprolol XL (24 HR) Succ 25 MG TAB.ER.24H PO SCH (08:47)
[2017-03-16] MEDS: Isosorbide MONOnitrate (24 HR) 30 MG TAB.ER.24H PO SCH (08:47)
[2017-03-16] MEDS: Insulin DETEMIR 100 UNIT/ML X5UNITS SQ SCH ×2 (08:48→21:23)
[2017-03-16] MEDS ORDERED: Nitroglycerin 1,000 MCG/10 ML VIAL IV ONE (11:49)
[2017-03-16] MEDS ORDERED: *HR* Heparin 10,000 UNIT/10 ML VIAL ONE (11:49)
[2017-03-16] MEDS ORDERED: 0.9 % Sodium Chloride 1,000 ML ONE ×2 (11:49→13:23)
[2017-03-16] MEDS ORDERED: Heparin 1,000 UNITS/500 mL NS 500 ML ONE (11:49)
[2017-03-16] MEDS ORDERED: *HR* Midazolam HCl 5 MG/5 ML VIAL IVP ONE (13:19)
--- NOTE | 2017-03-16 13:30 | Pre-Sedation Evaluation ---
Pre-sedation evaluation - Pre-sedation checklist Date of procedure: 03/16/17 Procedure: Left Heart Catheterization Recent Vitals: Last Vital Signs Temp 98.1 F 03/16/17 12:12 Pulse 58 03/16/17 12:12 Resp 18 03/16/17 12:12 BP 96/74 03/16/17 12:12 Pulse Ox 97 03/16/17 12:12 H&P (including ROS) documented in medical record: Yes Previous reaction to sedatives/anesthetics: No Dietary Status: NPO after Midnight Airway Assessment: Patient can open mouth completely, TMJ function normal Dentition: full dentition Possible difficult airway: No ASA Classification *see protocol: CLASS III-Severe systemic disease Plan of Care: Pt appropriate candidate for procedure/moderate/conscious sedation , Risks/benefits of procedure/sedation discussed w/ patient/family, If not NPO; Risk of intake outweiged by necessity to perform procedure
[2017-03-16] MEDS ORDERED: *HR* Bivalirudin 250 MG VIAL IVC ONE (14:03)
[2017-03-16] MEDS ORDERED: Ondansetron 4 MG/2 ML VIAL ONE (14:35)
--- NOTE | 2017-03-16 14:48 | Event Note ---
Date of Encounter: 03/16/17 Time of Encounter: 14:46 - Cardiology Event Note [facility] completed by Dr. Watson. Stable CAD. No intervention needed. Continue medical therapy. Recommend adding ranexa for chest pain. Out-patient f/u is scheduled with Elaine Mendes CNP in the cardiology office. Cardiology signing off. Call with questions.
--- NOTE | 2017-03-16 15:09 | Invasive Diagnostic Lab Proc ---
Name: Andrea Saleh Date of Study: 03/16/2017 Date: 1970 Ht: 70.9in Medical Record#: [id number] Age: 46 Wt: 207.23lb Gender: Male BSA: 2.14 Order #: [id number] BMI: 29.01 Physicians Procedure Physician: Carlos Watson DO Referring MD: Referring MD: Staff Name Position Time In Alicia Kush RN Scrub 01:22 PM Marbella Cancino RT (R) Monitor 01:22 PM Genia Orlando RN Education Director 01:22 PM Indications Indication Unstable Angina Procedures Performed Procedure L HRT ARTERY/VENTRICLE ANGIO IV Doppler BLD Flow 1st Vessel Pre-Procedure Checklist Pt not NPO for procedure and MD aware. Blood Pressure: 101/62 Rhythm: NSR Plan of Care Patient will tolerate the procedure without complications. Adequate level of comfort will be maintained. Hemodynamics will remain stable Patient will recover from procedure without complications. Respiratory function will be maintained. Cardiac rhythm will remain stable. Patient temperature will be maintained. Patient and/or family have verbalized understanding of the procedure. Patient Education Chief Complaint/Reason for Test: Cardiac Cath Developmental Category: Adult (18-64 years) Developmentally Appropriate for Age: Yes Learning Barriers: None Education Needs: Procedure Education Method: Verbal Information Taught: Cardiac Cath Educational Evaluation: Able to repeat information Intravenous Access Time IV Size Location DC'd Fluid/Drip Rate Units RN 18g 1 /" Patent On Arrival Rt Arm Allergies guaifenesin (Mucinex) guaifenesin Vital Signs Time BP (mmHg) HR (bpm) O2 Sat. RR (bpm) LOC 01:21 PM 101 / 62 56 96 % 16 5 = Fully awake and oriented or at pre-proc level 01:23 PM / % 5 = Fully awake and oriented or at pre-proc level 01:23 PM / % 5 = Fully awake and oriented or at pre-proc level 01:37 PM / % 4 = Oriented but drowsy 01:52 PM / % 4 = Oriented but drowsy 02:08 PM / % 4 = Oriented but drowsy 02:23 PM / % 4 = Oriented but drowsy 01:34 PM 124 / 78 50 98 % 9 01:39 PM 129 / 65 61 99 % 01:44 PM 123 / 63 63 95 % 16 01:49 PM 131 / 71 65 98 % 01:54 PM 127 / 78 60 98 % 01:59 PM 126 / 71 56 96 % 02:04 PM 142 / 64 55 96 % 02:08 PM 125 / 74 64 97 % 02:14 PM 123 / 60 52 97 % 28 02:19 PM 119 / 66 52 98 % 14 02:24 PM 106 / 64 53 99 % 22 02:29 PM 119 / 88 56 96 % 27 02:34 PM 107 / 56 53 96 % 29 02:39 PM 129 / 59 53 93 % 22 02:38 PM / % 5 = Fully awake and oriented or at pre-proc level Procedural Medications Time Medication Dose Units Method Given By 01:36 PM Oxygen 2 L/min nasal cannula Genia Orlando RN 01:36 PM Versed 2 mg Intravenous Genia Orlando RN 01:47 PM Versed 1 mg Intravenous Genia Orlando RN 01:47 PM Lidocaine 2% 10 ml Subcutaneous Carlos Watson DO 02:06 PM Angiomax 0.75mg/kg bolus: 14 ml Intravenous Genia Orlando RN 02:06 PM Angiomax 1.75mg/kg/hr: 33 ml/hr Intravenous Genia Orlando RN 02:22 PM Versed 1 mg Intravenous Genia Orlando RN 02:29 PM Adenosine 790 ml/hr Intracoronary Carlos Watson DO 02:35 PM Adenosine 790 ml/hr Intravenous Genia Orlando RN 02:38 PM Zofran 4 mg Intravenous Genia Orlando RN 02:39 PM Angiomax 1.75mg/kg/hr: ASA Classification: CLASS II- Mild systemic disease (i.e. well-controlled diabetes, hypertension, asthma, cigarette smoking) Augusto Score Preprocedure Postprocedure Activity 2- Moves 4 extremities sustained head lift Activity 2- Moves 4 extremities sustained head lift Circulation 2- SBP +/= 20 points of pre-anesthetic level Circulation 2- SBP +/= 20 points of pre-anesthetic level Consciousness 2- Awake and alert oriented x 3 Consciousness 2- Awake and alert oriented x 3 O2 Saturation 2- Able to maintain O2 satruation of 92% on room air O2 Saturation 2- Able to maintain O2 satruation of 92% on room air Respiratory 2- Able to deep breathe and cough well Respiratory 2- Able to deep breathe and cough well Total Score 10 Total Score 10 Contrast Agent: Isovue Diagnostic Contrast: 150 ml Total Contrast: 150 ml Fluoro Dose: 1421 mGy Procedure Log Time Note Enter By 01:17 PM CathStat : PM 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 PM Case Delayed No, Inpatient PM Time: Patient comfortable and pain free: Yes PM Time: :LOC: 5 = Fully awake and oriented or at pre-proc level 33 PM Vitals capture started with the following parameters, Patient=Adult, Interval=5 min, Initial Vhpcgekb=766 mmHg, Deflation Rate=5 mmHg, Cuff placed on Right Arm :34 PM HR=50 bpm, MDSF=555/78 mmhg, SpO2=98.0 %, Resp=9 B/min, Comment=NSR :36 PM Case Start :36 PM Physician arrived 13:36 36 PM ASA Class CLASS II- Mild systemic disease (i.e. well-controlled diabetes, hypertension, asthma, cigarette smoking) 36 Meet and greet completed 36 PM Sign in performed according to hospital policy. 36 PM Procedure start 13:36 :36 PM Hair removed from procedure site in holding area using clippers. Bilateral groin prepped with Chloraprep by Marbella Cancino RT (R), safety strap applied then patient was draped. Skin intact. 36 PM Time: 13:36 Oxygen on at 2 L/min per nasal cannula by Genia Orlando RN 37 PM Time: 13:36 Versed 2 mg Intravenous Given by Genia Orlando RN :37 PM Time: 13:23 Patient comfortable and pain free: Yes 37 PM Time: 13:23LOC: 5 = Fully awake and oriented or at pre-proc level :39 PM HR=61 bpm, HMPI=265/65 mmhg, SpO2=99.0 %, Comment=NSR 01:39 PM Clinical Presentation: Unstable angina dsp:44 PM HR=63 bpm, CIXT=425/63 mmhg, SpO2=95.0 %, Resp=16 B/min, Comment=NSR :47 PM Time out performed according to hospital policy :47 PM Time: 13:47 Versed 1 mg Intravenous Given by Genia Orlando RN :47 PM Time: 13:47 10 ml Lidocaine 2% to right groin Subcutaneous Given by Carlos Watson DO :48 PM Pressure channel 2 zeroed. 01:49 PM HR=65 bpm, PSRV=406/71 mmhg, SpO2=98.0 %, Comment=NSR :49 PM Micro-Introducer Kit utilized for sheath placement :51 PM Access obtained by percutaneous puncture. 6Fr 10cm Terumo Magdalena sheath placed in right Femoral artery. [id number] :52 PM Time: 13:37 Patient comfortable and pain free: Yes 52 PM Time: 13:37LOC: 4 = Oriented but drowsy dsp:53 PM 6Fr FR 4 catheter inserted over the wire DNC :54 PM HR=60 bpm, GJLC=553/78 mmhg, SpO2=98.0 %, Comment=NSR :54 PM Catheter selectively placed in left ventricle dsp:54 PM Recorded Pressure: LV, HR=56, Condition=Condition 1 (Left Ventricle) LV 81/-2/1 01:55 PM Recorded Pressure: LV, Ao, HR=58, Condition=Condition 1 (Left Ventricle) LV 96/-7/3, (Aorta) Ao 92/56/72 01:55 PM Bolus angiogram of left Ventricle complete: ml/sec for a total of 12 mls :55 PM RCA angiography performed in multiple views. :56 PM Catheter removed dspellman 01:56 PM 6Fr FL 4 catheter inserted over the wire DNC dspell 01:57 PM LCA angiography performed in multiple views. dspell 01:59 PM HR=56 bpm, ESQV=691/71 mmhg, SpO2=96.0 %, Comment=NSR 01:59 PM Catheter removed dspell 02:00 PM 6Fr XB LAD 3.5 Cordis guide catheter was used to cannulate the PCI vessel unsuccessfully. reused? No dspellman 02:03 PM [ Start FFR sample ] 02:04 PM HR=55 bpm, NQJT=975/64 mmhg, SpO2=96.0 %, Comment=NSR 02:06 PM Pressure channel 3 zeroed. 02:06 PM Time: 14:06 Angiomax 0.75mg/kg bolus: 14 ml Intravenous Given by Genia Orlando RN Lerma pump dspell 02:07 PM Time: 14:06 Angiomax 1.75mg/kg/hr: 33 ml/hr Intravenous Given by Genia Orlando RN Lerma pump ell 02:07 PM Recorded Pressure: Ao, HR=66, Condition=Condition 1 (Aorta) Ao 97/67/80 02:08 PM NIBP STAT measurement started. 02:08 PM Time: 13:52LOC: 4 = Oriented but drowsy dsp 02:08 PM Time: 13:52 Patient comfortable and pain free: Yes dspell 02:08 PM HR=64 bpm, PWXR=313/74 mmhg, SpO2=97.0 %, Comment=NSR 02:09 PM [employer] wire equalized 02:14 PM HR=52 bpm, BAAG=830/60 mmhg, SpO2=97.0 %, Resp=28 B/min, Comment=NSR 02:15 PM Recorded Pressure: Ao, HR=54, Condition=Condition 1 (Aorta) Ao 92/60/73 02:17 PM Lesion found in Proximal RCA. Pre Stenosis: Pre RUSS Flow: 2: Partial Flow/Perfusion (> 1 but < 3) dspell 02:18 PM Flow wire removed dspell 02:19 PM Guide catheter removed intact. dspell 02:19 PM HR=52 bpm, HDOI=409/66 mmhg, SpO2=98.0 %, Resp=14 B/min, Comment=NSR 02:19 PM 6Fr JL5 Runway guide catheter was used to cannulate the PCI vessel unsuccessfully. reused? No dspellman 02:20 PM Inflation device was opened. dspellman 02:22 PM Guide catheter removed intact. dspellman 02:22 PM 6Fr JL4 Runway guide catheter was used to cannulate the PCI vessel successfully. reused? No dspellman 02:22 PM Time: 14:22 Versed 1 mg Intravenous Given by Genia Orlando RN [email or web address] 02:23 PM Time: 14:08 Patient comfortable and pain free: Yes dspell 02:23 PM Time: 14:08LOC: 4 = Oriented but drowsy [email or web address] 02:24 PM HR=53 bpm, GBNZ=002/64 mmhg, SpO2=99.0 %, Resp=22 B/min, Comment=NSR 02:24 PM updated family dspell 02:25 PM flow wire inserted and normalized, advanced to target lesion dspell 02:29 PM Time: 14:29 Adenosine 790 ml/hr administered Intravenous by Genia Orlando RN [email or web address] 02:29 PM HR=56 bpm, WFDB=686/88 mmhg, SpO2=96.0 %, Resp=27 B/min, Comment=NSR 02:31 PM Adenosine stopped dspell 02:31 PM FFR Measurement: 0.85 dspellman 02:34 PM HR=53 bpm, KKFJ=426/56 mmhg, SpO2=96.0 %, Resp=29 B/min, Comment=NSR 02:35 PM Time: 14:35 Adenosine 790 ml/hr administered Intravenous by Genia Orlando RN [email or web address] 02:37 PM Adenosine stopped dspell 02:38 PM FFR Measurement: 0.84 dspell 02:38 PM Flow Wire removed intact dspell 02:38 PM Time: 14:38 Zofran 4 mg Intravenous Given by Genia Orlando RN dspbrandi 02:38 PM Time: 14:23 Patient comfortable and pain free: Yes [email or web address] 02:38 PM Time: 14:23LOC: 4 = Oriented but drowsy dspelldandre 02:38 PM Guide catheter removed intact. dspell 02:39 PM Time: 14:39 Angiomax 1.75mg/kg/hr: dc'd ml Given by Genia Orlando RN Lerma pump dspell 02:39 PM HR=53 bpm, JCVZ=576/59 mmhg, SpO2=93.0 %, Resp=22 B/min, Comment=NSR 02:40 PM Procedure completed at 14:40 dspell 02:40 PM Sign out completed: Radiation Dose 1420.87 mGy Fluoro Time: 14.6 Isovue 370 - 200ml contrast 150 ml given by Carlos Watson DO. Complications: NoneCardiac Rehab Consult needed: NoConfirmed administered medications: Yes ell 02:40 PM Isovue 370 - 200ml,1 Bottle(s) used. dspell 02:40 PM Sheath left in place to be pulled on floor/holding areaV+Pad dspell 02:41 PM Post ECG NSR dspell 02:42 PM Post Blood Pressure 129/56 dspell 02:42 PM 14:42 Post Pulses Bilateral DP 2+ dspell 02:42 PM 14:42 Post Pulses Bilateral PT 1+ dspell 02:43 PM Information taught Cardiac Cath dspell 02:43 PM Education needs Procedure, Plan of Care, and Responsibilities of Patient in Care dspell 02:43 PM Learning barriers :None dspell 02:43 PM Education Methods Verbal dspell 02:43 PM Education evaluation Able to repeat information dspell 02:43 PM Site status No bleeding/hematoma - Rt Groin as reported by Kush Vargas RN at 14:43 dspell 02:43 PM Opsite applied dspell 02:43 PM Family placed in consult room. dspell 02:43 PM Complications: None dspell 02:46 PM Fluoro Time: 14.6 dspell 02:46 PM Isovue 370 - 200ml contrast 150 ml given by Carlos Watson DO. dspell 02:46 PM Radiation Dose 1420.87 mGy dspell 02:47 PM Lesion found in Mid LAD. Pre Stenosis: 60 Pre RUSS Flow: ell 02:53 PM Time: 14:38LOC: 5 = Fully awake and oriented or at pre-proc level dspell 02:54 PM Time: 14:38 Patient comfortable and pain free: Yes dspell 03:00 PM Report given to Genia LIGHT Pt taken to 2N Room #8. 15:00 [email or web address] 03:00 PM Delay to floor No dspell 03:00 PM Patient out of room: 15:00 [place] Complications Complication None None Hemodynamics Pressures Site Systolic/A Wave Diastolic/V Wave Mean LV 81 -2 1 LV 96 -7 3 AO 92 56 72 AO 97 67 80 AO 92 60 73 Post Procedure Information Blood Pressure: 129/56 mmHg Rhythm: NSR Post procedural instructions were given Site Checks Time Location Status Staff Sheath In? Note 02:43 PM Rt Groin No bleeding/hematoma Kush Vargas RN Pulses Time Site Pre-Procedure Post-Procedure Note 03/16/2017 1:21:00 PM Bilateral DP 2+ 03/16/2017 1:21:00 PM Bilateral PT 1+ 03/16/2017 1:21:00 PM Rt Radial 1+ 03/16/2017 1:21:00 PM Lt Radial 2+ 2:42:00 PM Bilateral DP 2+ 2:42:00 PM Bilateral PT 1+ Updated by Marbella Cancino, RT (R) on 03/16/2017 3:03:47 PM Marbella Cancino RT electronically signed on 03/16/2017 3:04:55 PM with status of Final
--- NOTE | 2017-03-16 15:14 | Internal Med Progress Note ---
<Andrea Reis - Last Filed: 03/16/17 15:11> Date of Encounter: 03/16/17 Time of Encounter: 08:35 - Assessment and plan (1) Chest pain Current Visit: Yes Status: Acute Assessment and plan: Patient underwent LHC today without intervention Cardiology recommends Ranexa for continued chest pain The patient will be monitored overnight following LHC, likely DC tomorrow Qualifiers: Chest pain type: unspecified Qualified Code(s): R07.9 - Chest pain, unspecified (2) CAD (coronary artery disease) Current Visit: Yes Status: Chronic Assessment and plan: Coronary artery disease status post stent in 2016, stable per LHC Continue aspirin, Plavix, lisinopril, metoprolol, Lipitor Cardiology recommends ranexa, signed off Qualifiers: Coronary Disease-Associated Artery/Lesion type: [place] artery [place] vs. transplanted heart: [place] heart Associated angina: without angina Qualified Code(s): I25.10 - Atherosclerotic heart disease of [place] coronary artery without angina pectoris (3) HTN (hypertension) Current Visit: Yes Status: Chronic Assessment and plan: Hypertension is well controlled on current medications Qualifiers: Hypertension type: essential hypertension Qualified Code(s): I10 - Essential (primary) hypertension (4) Tobacco abuse Current Visit: Yes Status: Chronic Assessment and plan: Smoking cessation and education as discussed with patient Nicotine patch at this time (5) DVT prophylaxis Current Visit: No Status: Inactive Assessment and plan: Patient is low risk for DVT, however will not be ambulatory following LHC. Start SQ Heparin - Subjective Interval history: The patient is resting comfortably in bed at time of examination. He is scheduled for LHC today. He and his family are comfortable, and have no questions at this time. - Constitutional Vitals: Temp Pulse Resp BP Pulse Ox 98.1 F 58 18 96/74 97 03/16/17 12:12 03/16/17 12:12 03/16/17 12:12 03/16/17 12:12 03/16/17 12:12 General appearance: Present: A&O X 3, obese, answers questions appropriately - Head Head exam: Present: atraumatic, normocephalic - Eye Eye exam: Present: PERRL, conjuntiva pink, sclera anicteric Pupils: Present: PERRL - Neck Neck exam general surgery: Present: supple, trachea midline. Absent: lymphadenopathy - Respiratory Respiratory exam: Present: CTAB. Absent: accessory muscle use, rales, rhonchi, wheezes - Cardiovascular Cardiovascular exam: Present: RRR, +S1, +S2. Absent: diastolic murmur, gallop, rubs, systolic murmur - GI/Abdominal GI/Abdominal exam: Present: normal bowel sounds, soft, no peritoneal signs. Absent: distended, tenderness - Extremities Exam Extremities exam: Present: warm, radial pulses palpable and symmetrical. Absent : calf tenderness, cyanotic, pedal edema - Neurological Exam Neurological exam: Present: CN II-XII intact, oriented X3, no focal deficits. Absent: pronater drift, facial droop, speech deficit - Skin Skin exam: Present: dry, intact Internal Medicine: Result - Labs CBC & Chem 7: 03/15/17 03:49 03/16/17 04:35 Labs: BMP 03/16/17 04:35 Sodium 140 Potassium 4.3 Chloride 104 Carbon Dioxide 30 H BUN 10 Creatinine 0.86 Glucose 160 H Calcium 8.9 Consult Discharge Plan - Plan Additional Instructions: pcp requested Referrals: Doris Stanley, HOME ENERGY INSPECTOR [Primary Care Provider] - <Dominick Fajardo - Last Filed: 03/16/17 16:42> Date of Encounter: 03/16/17 - Assessment and plan (1) Unstable angina Current Visit: Yes Status: Acute (2) CAD (coronary artery disease) Current Visit: Yes Status: Chronic Qualifiers: Coronary Disease-Associated Artery/Lesion type: [place] artery [place] vs. transplanted heart: [place] heart Associated angina: without angina Qualified Code(s): I25.10 - Atherosclerotic heart disease of [place] coronary artery without angina pectoris (3) HTN (hypertension) Current Visit: Yes Status: Chronic Qualifiers: Hypertension type: essential hypertension Qualified Code(s): I10 - Essential (primary) hypertension (4) Tobacco abuse Current Visit: Yes Status: Chronic (5) DM (diabetes mellitus) Current Visit: No Status: Chronic Qualifiers: Diabetes mellitus type: type 2 Diabetes mellitus complication status: with circulatory complication Diabetes mellitus complication detail: with other circulatory complications Diabetes mellitus nursing home insulin use: without nursing home use Qualified Code(s): E11.59 - Type 2 diabetes mellitus with other circulatory complications (6) HLD (hyperlipidemia) Current Visit: No Status: Chronic Qualifiers: Hyperlipidemia type: mixed hyperlipidemia Qualified Code(s): E78.2 - Mixed hyperlipidemia - Constitutional Vitals: Temp Pulse Resp BP Pulse Ox 97.9 F 59 16 110/64 97 03/16/17 15:10 03/16/17 16:21 03/16/17 16:00 03/16/17 16:21 03/16/17 16:00 Internal Medicine: Result - Labs CBC & Chem 7: 03/15/17 03:49 03/16/17 04:35 Labs: BMP 03/16/17 04:35 Sodium 140 Potassium 4.3 Chloride 104 Carbon Dioxide 30 H BUN 10 Creatinine 0.86 Glucose 160 H Calcium 8.9 - Attending Attestation I examined this patient and my medical decision-making was reviewed with the Resident Physician on 03/16/17. I agree with the documented findings, disposition and treatment plan as described except to the extent set forth below. Mr Saleh is currently in observation for chest pain. He had cardiac cath today. He remains moderate to high risk Mr Saleh is going to cardiac cath. Slept OK. No fever or chills. No further CP. Exam Alert. Comfortable Heart not tachy No wheeze Abd soft I/P 1. [place] - cath today 2. CAD Further diagnoses and plan as above.
--- NOTE | 2017-03-16 17:15 | Discharge Summary ---
<Andrea Reis - Last Filed: 03/16/17 17:12> Date of Encounter: 03/16/17 Time of Encounter: 17:13 - Discharge Diagnosis (1) Chest pain Priority: Primary Status: Acute Qualifiers: Chest pain type: unspecified Qualified Code(s): R07.9 - Chest pain, unspecified (2) CAD (coronary artery disease) Priority: Secondary Status: Chronic Qualifiers: Coronary Disease-Associated Artery/Lesion type: [place] artery [place] vs. transplanted heart: [place] heart Associated angina: without angina Qualified Code(s): I25.10 - Atherosclerotic heart disease of [place] coronary artery without angina pectoris (3) HTN (hypertension) Priority: Secondary Status: Chronic Qualifiers: Hypertension type: essential hypertension Qualified Code(s): I10 - Essential (primary) hypertension (4) Tobacco abuse Priority: Secondary Status: Chronic - Discharge Medications Prescriptions: Ranolazine [Ranexa] 500 mg PO BID #60 tab.er.12h Home Medications: metFORMIN [Glucophage] 1,000 mg PO BID 09/17/16 [History] Aspirin 81 mg PO DAILY #60 tab.chew 09/20/16 [Rx] Atorvastatin [Lipitor] 40 mg PO HS #30 tablet 09/20/16 [Rx] Metoprolol XL (24 HR) Succ [Toprol Xl] 25 mg PO DAILY #30 tab.er.24h 09/20/16 [ Rx] Clopidogrel [Plavix] 75 mg PO DAILY 11/19/16 [History] Famotidine [Heartburn Prevention] 20 mg PO BID 11/19/16 [History] Gabapentin [Neurontin] 300 mg PO 0900,1200 11/19/16 [History] Nicotine Patch [Nicoderm] 21 mg TD DAILY #30 patch.td24 11/22/16 [Rx] Gabapentin [Neurontin] 600 mg PO HS 03/14/17 [History] Isosorbide MONOnitrate (24 HR) [Imdur] 90 mg PO DAILY 03/14/17 [History] Lisinopril 2.5 mg PO DAILY 03/14/17 [History] glipiZIDE [Glucotrol] 5 mg PO DAILY 03/14/17 [History] Ranolazine [Ranexa] 500 mg PO BID #60 tab.er.12h 03/16/17 [Rx] Allergies/Adverse Reactions: 3 Allergy/AdvReac Type Severity Reaction Status Date / Time guaifenesin [From Robitussin] Allergy Hives Verified 03/14/17 14:10 Procedures/tests Complete & Pending: Procedures Performed prior 72 hours Category Date Time Status CL Cardiac Catheterization [CL] Routine Software Sales Executive 03/15/17 13:32 Ordered ECG 12 lead ECG [ECG] Routine Y 03/14/17 20:26 Completed EV limited echocardiogram Routine Y 03/15/17 19:16 Completed - Notes to Outpatient Provider Clarification of patient's diabetes management medications may be necessary. Date of admission: 03/14/17 14:11 Primary care physician: Doris Stanley CNP Consults: 03/14/17 14:27 Consult to Cardiology [CONS] Routine Comment: Consulting Provider: Carol Johnson Reason for Consult: Clare spoke with in ED Call Completed: Yes Discharging clinician: Andrea Reis Anticipated date of discharge: 03/16/17 - Patient Status Disposition: Home, Self-Care Condition: Fair Functional capacity at discharge: wheelchair bound Overall status at discharge: patient is progressing back to baseline - Discharge Instructions Follow Up With: Doris Stanley CNP [Primary Care Provider] - Additional Instructions: pcp requested Follow-up with primary care within 1 week, follow-up with cardiology as directed. - Diet and Activity Activity: increase activity as tolerated, other (Patient may return to work for light duty on Monday On Wednesday 03/21, Do not lift more than 5lb for at least one week) Diet: diabetic diet, low salt diet Hospital course: Mr. Saleh is a 46 year old male with a past medical history significant for hypertension, diabetes, hyperlipidemia, CAD with stents who presents to the ED with 8 out of 10 intensity left sided chest pain that radiated towards his neck and back and improved with sublingual nitroglycerin. In the emergency room the patient was started on insulin drip due to his substantial risk factors and previous VT. He was admitted to the floor where troponins were trended and found to be negative, EKG demonstrated no acute changes. Patient underwent a left heart catheterization which demonstrated no substantial change from previous exam, and required no intervention. The patient will be discharged home on Ranexa, and she will follow up with cardiology for long-term management of occasional chest pain. - Time Spent with Patient Total time spent providing and/or coordinating discharge services: - Constitutional Vitals: Temp Pulse Resp BP Pulse Ox 97.9 F 49 16 101/63 97 03/16/17 15:10 03/16/17 17:05 03/16/17 16:00 03/16/17 17:05 03/16/17 16:00 General appearance: Present: A&O X 3, obese, answers questions appropriately - Head Head exam: Present: atraumatic, normocephalic - Eye Eye exam: Present: PERRL, conjuntiva pink, sclera anicteric Pupils: Present: PERRL - Neck Neck exam general surgery: Present: supple, trachea midline. Absent: lymphadenopathy - Respiratory Respiratory exam: Present: CTAB. Absent: accessory muscle use, rales, rhonchi, wheezes - Cardiovascular Cardiovascular exam: Present: RRR, +S1, +S2. Absent: diastolic murmur, gallop, rubs, systolic murmur - GI/Abdominal GI/Abdominal exam: Present: normal bowel sounds, soft, no peritoneal signs. Absent: distended, tenderness - Extremities Exam Extremities exam: Present: warm, radial pulses palpable and symmetrical. Absent : calf tenderness, cyanotic, pedal edema Additional comments: Site of right femoral arterial access currently dressed with pressure dressing. No acute complications - Neurological Exam Neurological exam: Present: CN II-XII intact, oriented X3, no focal deficits. Absent: pronater drift, facial droop, speech deficit - Skin Skin exam: Present: dry, intact <Dominick Fajardo - Last Filed: 03/16/17 17:43> Date of Encounter: 03/16/17 - Discharge Diagnosis (1) Unstable angina Priority: Primary Status: Acute (2) CAD (coronary artery disease) Status: Chronic Qualifiers: Coronary Disease-Associated Artery/Lesion type: [place] artery [place] vs. transplanted heart: [place] heart Associated angina: without angina Qualified Code(s): I25.10 - Atherosclerotic heart disease of [place] coronary artery without angina pectoris (3) HTN (hypertension) Status: Chronic Qualifiers: Hypertension type: essential hypertension Qualified Code(s): I10 - Essential (primary) hypertension (4) Tobacco abuse Status: Chronic (5) DM (diabetes mellitus) Priority: Secondary Status: Chronic Qualifiers: Diabetes mellitus type: type 2 Diabetes mellitus complication status: with circulatory complication Diabetes mellitus complication detail: with other circulatory complications Diabetes mellitus snf insulin use: without snf use Qualified Code(s): E11.59 - Type 2 diabetes mellitus with other circulatory complications (6) HLD (hyperlipidemia) Priority: Secondary Status: Chronic Qualifiers: Hyperlipidemia type: mixed hyperlipidemia Qualified Code(s): E78.2 - Mixed hyperlipidemia Procedures/tests Complete & Pending: Procedures Performed prior 72 hours Category Date Time Status CL Cardiac Catheterization [CL] Routine Software Sales Executive 03/15/17 13:32 Completed ECG 12 lead ECG [ECG] Routine Y 03/14/17 20:26 Completed EV limited echocardiogram Routine Y 03/15/17 19:16 Completed Date of admission: 03/14/17 14:11 Primary care physician: Doris Stanley CNP Consults: 03/14/17 14:27 Consult to Cardiology [CONS] Routine Comment: Consulting Provider: Carol Johnson Reason for Consult: Clare spoke with in ED Call Completed: Yes Hospital course: Mr. Saleh is a 46 year old male - Time Spent with Patient Total time spent providing and/or coordinating discharge services: 38min - Constitutional Vitals: Temp Pulse Resp BP Pulse Ox 97.9 F 63 16 106/65 97 03/16/17 15:10 03/16/17 17:30 03/16/17 17:15 03/16/17 17:30 03/16/17 17:15 - Attending Attestation I examined this patient and my medical decision-making was reviewed with the Resident Physician on 03/16/17. I agree with the documented findings, disposition and treatment plan as described except to the extent set forth below. Mr Saleh has been admitted for chest pain presumed to be USA. He underwent cardiac cath today. Ranexa started. He is afebrile with stable vitals and ready for discharge home. Exam Alert. Comfortable Heart not tachy No wheeze Plan D/C today.
[2017-03-16] MEDS: Ranolazine 500 MG TAB.ER.12H PO SCH ×2 (17:36→20:26)
[2017-03-16] MEDS ORDERED: *HR* Heparin 5,000 UNIT/ML VIAL SQ SCH (18:00)
[2017-03-16] MEDS ORDERED: Adenosine 90 MG/30 ML MLS IV ONE (21:39)
[2017-03-16 21:52] VITALS: BP 107/58
== END 2017-03-16 21:40 | disposition home or self-care (01) ==
LOC: EMEROO 11:37 → 2NENU 11:37 → 2NNU 03-16 14:47
PROVIDERS: ADMIT Internal Medicine; ATTEND Internal Medicine

== ENCOUNTER 2018-06-03 11:50 | Observation (INO) ==
[2018-06-03] MEDS ORDERED: Aspirin 325 MG TABLET PO ONE (12:04)
--- NOTE | 2018-06-03 12:09 | Emergency Department Note ---
Disposition Clinical Impression: Unstable angina Chest pain Qualifiers: Chest pain type: unspecified Qualified Code(s): R07.9 - Chest pain, unspecified Disposition: Admitted As Inpatient Condition: Good Referrals: Doris Stanley CNP [Primary Care Provider] - Forms: ED Satisfaction Letter Time of Disposition: 12:56 Chest Pain HPI - General Chief Complaint: ED Chest Pain Stated Complaint: Chest Pain since 8 am Time Seen by Provider: 06/03/18 11:57 Source: patient Limitations: no limitations Vital Signs Reviewed: Yes Nursing Notes Reviewed: Yes - History of Present Illness HPI Narrative: 47-year-old male history of CAD s/p 1 stent 2018, tobacco smoker, hypertension, diabetes, hyperlipidemia presents emergency department with chest pain. Symptoms started 4 hours prior to evaluation. Patient was placing cans in the cooler when he developed left side sharp chest pain with associated nausea and shortness of breath. He took 3 sublingual nitros which brought the pain from an 8 down to a 5. 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 They recently performed a stress test but were unable to get his heart rate up. No history of blood clots. Denies any other symptoms. He took 81 mg aspirin today. Pt complaint: chest pain Severity scale (1-10): 6 - Related Data Home Medications Medication Instructions Recorded Confirmed metFORMIN [Glucophage] 1,000 mg PO BID 09/17/16 07/31/17 Clopidogrel [Plavix] 75 mg PO DAILY 11/19/16 07/31/17 Famotidine [Heartburn Prevention] 20 mg PO BID 11/19/16 07/31/17 Gabapentin [Neurontin] 300 mg PO HS 03/14/17 07/31/17 Isosorbide MONOnitrate (24 HR) 150 mg PO DAILY 03/14/17 07/31/17 [Imdur] Lisinopril 2.5 mg PO DAILY 03/14/17 07/31/17 Furosemide [Lasix] 40 mg PO DAILY 07/31/17 07/31/17 Glimepiride [Amaryl] 2 mg PO 0800 07/31/17 07/31/17 Ranolazine [Ranexa] 1,000 mg PO BID 07/31/17 07/31/17 Previous Rx's Medication Instructions Recorded Aspirin 81 mg PO DAILY #60 tab.chew 04/25/17 Atorvastatin [Lipitor] 40 mg PO HS #30 tablet 09/20/16 Metoprolol XL (24 HR) Succ [Toprol 25 mg PO DAILY #30 tab.er.24h 09/20/16 Xl] Nicotine Patch [Nicoderm] 21 mg TD DAILY #30 patch.td24 11/22/16 Allergies Allergy/AdvReac Type Severity Reaction Status Date / Time guaifenesin [From Robitussin] Allergy Hives Verified 03/23/17 09:29 All systems ED: reviewed and negative except as stated. Review of Systems: As Per HPI Constitutional: Denies: fever, chills ENT ED: Denies: congestion Cardiovascular: Reports: chest pain Respiratory: Denies: cough, dyspnea Gastrointestinal: Denies: abdominal pain, nausea, vomiting Genitourinary: Denies: dysuria Musculoskeletal: Denies: back pain Integumentary: Denies: rash, abrasion Neurological: Denies: headache Chest Pain PMH - Past Medical History Medical history: Reports: coronary artery disease, diabetes, GERD, hyperlipidemia, hypertension, kidney stones, other Surgical history: Reports: angioplasty/stent, appendectomy, cholecystectomy, orthopedic, other Psychiatric history: Reports: no psych history - Social History Smoking Status: Current every day smoker Alcohol use: Reports: none Drug use: Reports: marijuana Physical Exam - General Limitations: no limitations General appearance: alert, in no apparent distress, obese - Head Head exam: atraumatic, normocephalic, normal inspection - Eye Eye exam: Present: normal appearance, PERRL, EOMI - ENT ENT exam: normal exam, normal oropharynx, mucous membranes moist - Neck Neck exam: Present: normal inspection, full ROM, trachea midline - Chest Chest inspection: Present: normal inspection, symmetric chest wall rise. Absent: tenderness - Respiratory Respiratory exam: Present: normal lung sounds bilaterally - Cardiovascular Cardiovascular exam: Present: regular rate, normal rhythm, normal heart sounds - Abdominal Exam Abdominal exam: Present: soft, Non-Tender, normal bowel sounds. Absent: tenderness, distention, guarding, rebound, rigidity - Extremities Exam Extremities exam: Present: normal inspection, full ROM, normal capillary refill. Absent: tenderness, pedal edema - Back Exam Back exam: Present: normal inspection, full ROM. Absent: tenderness - Neurological Exam Neurological exam: Present: alert, oriented X3 - Psychiatric Psychiatric exam: Present: normal affect, normal mood - Skin Skin exam: Present: warm, dry, intact, normal color. Absent: rash, cyanosis, diaphoresis Course Course Narrative: Patient presents with the chest pain with a history of coronary artery disease. Patient continues to have some mild chest pain and will trial nitroglycerin in give him a full dose aspirin. EKG does not reveal ischemic findings concerning for STEMI at this time. Patient will likely require admission for continue evaluation and unstable angina. - Reevaluation(s) Reevaluation #1: Review of lab shows hyperglycemia otherwise no abnormalities. Chest x-ray shows possible atelectasis vs pneumonia, given the absence of any shortness of breath or cough, I favor atelectasis. Patient will be admitted for a chest pain evaluation. He refuses nitroglycerin here. Time: 12:52 - Consultations Consultation #1: Spoke with on-call hospitalist julian Cota to admit for chest pain, [place]. No further orders at this time Time: 13:00 Vital Signs Temperature 97.5 F L 06/03/18 11:54 Pulse Rate 84 06/03/18 11:54 Respiratory Rate 18 06/03/18 11:54 Blood Pressure 122/87 06/03/18 11:54 O2 Sat by Pulse Oximetry 99 06/03/18 11:54 Temperature 97.5 F L 06/03/18 11:54 Pulse Rate 88 06/03/18 12:26 Respiratory Rate 13 06/03/18 12:26 Blood Pressure 114/69 06/03/18 12:26 O2 Sat by Pulse Oximetry 98 06/03/18 12:26 Oxygen Delivery Oxygen Delivery Room Air Chest Pain - MDM Narrative Medical decision making narrative: Patient was discussed with my attending physician who agrees with ED management and final disposition. They independently evaluated the patient. Please refer to their attestation to this encounter for additional information. This note was generated by [employer] voice recognition software and as a result grammatical or spelling errors may occur using this program. - Medical Records Medical records reviewed: Yes I reviewed the patient's medical records. - Lab Data Lab results reviewed: Yes I reviewed the patient's lab results. Result diagrams: 06/03/18 12:00 06/03/18 12:00 Lab Results 06/03/18 06/03/18 Range/Units 12:00 12:00 WBC 10.4 (4.3-11.1) K/mcL RBC 4.73 (4.19-5.50) M/mcL Hgb 15.3 (12.9-16.9) g/dL Hct 44.2 (37.5-50.1) % MCV 93.4 (83.0-100.0) fL MCH 32.3 (28.0-33.3) pg MCHC 34.6 (31.6-35.5) g/dL RDW 12.1 (11.5-14.5) % Plt Count 250 (140-400) K/mcL MPV 9.8 (9.4-12.4) fL Immature Gran % 0.4 (0-4) % Seg Neutrophils % 68.7 % Lymphocytes % 21.8 % Monocytes % 7.5 % Eosinophils % 1.1 % Basophils % 0.5 % Neutrophils # 7.2 (1.6-8.9) K/mcL Lymphocytes # 2.3 (0.6-4.6) K/mcL Monocytes # 0.8 (0.0-1.3) K/mcL Eosinophils # 0.1 (0.0-0.6) K/mcL Basophils # 0.1 (0.0-0.2) K/mcL Sodium 137 (136-145) mEq/L Potassium 3.8 (3.5-5.1) mEq/L Chloride 100 (98-107) mEq/L Carbon Dioxide 29 (23-29) mEq/L BUN 13 (6-20) mg/dL Creatinine 0.94 (0.70-1.30) mg/dL Est GFR ( Amer) > 60 (> 60) Est GFR (Non-Af Amer) > 60 (> 60) BUN/Creatinine Ratio 14 (6-26) Glucose 268 H (70-105) mg/dL Calculated Osmolality 294 (280-300) Calcium 9.7 (8.6-10.3) mg/dL Troponin I < 0.03 (< 0.04) ng/mL - Radiology Data Radiology results reviewed: Yes I reviewed the patient's radiology results. Chest X-Ray 06/03/18 11:58 IMPRESSION: Bibasilar linear infiltrates could represent subsegmental atelectasis or pneumonia D/ / Andrea Alvarado MD / Andrea Alvarado MD Interpreting Provider: Andrea Alvarado MD - EKG Data EKG attestation: Yes I reviewed and interpreted this EKG. EKG results narrative: EKG performed 1156 normal sinus rhythm 77 beats per minute, normal axis, good R wave progression, no Q waves are T-wave inversion. Compared to prior EKG performed 03/23/2017 with similar consistent findings. No acute ischemic changes. Heart Score - Score History: Moderately Suspicious EKG: Normal Age: 45-65 Risk Factors: Equal/Greater than 3 risk factor or history of atherosclerotic disease Troponin: Less than normal limit HEART Score Total: 4 Attestation Statement - Attestation Attestation: Patient was seen with resident physician. I reviewed the history, physical, assessment and plan, and agree with the findings. I also personally evaluated this patient and had [id number] time with this patient. 47-year-old male presents emergency Department with chest pain. Pains on left side at a pressure sensation is mostly in that location. Started today. Patient is a history of stents several years ago. Feels like his heart attack pain. Patient recently had a stress test but was inconclusive because he could not get his heart rate high enough. He is scheduled to have a Persantine stress test soon. Patient states that his pain is better since he took his nitroglyce rin. He did just take a baby aspirin noted today. When his pain was at its worse she also had diaphoresis and nausea with it. He denies fevers or chills. Review of systems as above remainder negative. Physical exam vital signs are stable. ENT is unremarkable. Heart regular rhythm and rate. Lungs clear. Abdomen is soft and nontender. Extremities are unremarkable. Neurologically intact. Skin no rashes. Psych normal. ED course. EKG shows no acute ischemic changes. We will do a full cardiac workup and get the patient admitted to the hospitalist service for formal rule out. He remained hemodynamically stable in the emergency department. He also had minimal chest discomfort while here. Initial workup did not reveal any acute abnormalities. Hospitalist service was notified and agreed to accept patient for admission. I agree with the resident physician assessment plan.
[2018-06-03 12:15] LABS: Basophils # 0.1 K/mcL (0.0-0.2); Basophils % 0.5 %; Eosinophils # 0.1 K/mcL (0.0-0.6); Eosinophils % 1.1 %; Hematocrit 44.2 % (37.5-50.1); Hemoglobin 15.3 g/dL (12.9-16.9); Immature Granulocytes % 0.4 % (0-4); Lymphocytes # 2.3 K/mcL (0.6-4.6); Lymphocytes % 21.8 %; Mean Corpuscular HGB Conc 34.6 g/dL (31.6-35.5); Mean Corpuscular Hemoglobin 32.3 pg (28.0-33.3); Mean Corpuscular Volume 93.4 fL (83.0-100.0); Mean Platelet Volume 9.8 fL (9.4-12.4); Monocytes # 0.8 K/mcL (0.0-1.3); Monocytes % 7.5 %; Neutrophils # 7.2 K/mcL (1.6-8.9); Platelet Count 250 K/mcL (140-400); Red Blood Count 4.73 M/mcL (4.19-5.50); Red Cell Distribution Width 12.1 % (11.5-14.5); Segmented Neutrophils % 68.7 %
[2018-06-03] MEDS: Nitroglycerin 0.4 MG TAB.SUBL SL PRN ×2 (12:26→12:36)
[2018-06-03 12:37] LABS: BUN/Creatinine Ratio 14 (6-26); Blood Urea Nitrogen 13 mg/dL (6-20); Calcium 9.7 mg/dL (8.6-10.3); Carbon Dioxide 29 mEq/L (23-29); Chloride 100 mEq/L (98-107); Glucose 268 mg/dL (70-105); Osmolality,Calculated 294 (280-300); Potassium 3.8 mEq/L (3.5-5.1); Sodium 137 mEq/L (136-145); eGFR For Non-African Americans > 60 (> 60)
[2018-06-03 12:38] LABS: Troponin I < 0.03 ng/mL (< 0.04)
[2018-06-03] MEDS ORDERED: Naloxone 0.4 MG/ML INJ IVP PRN (14:49)
--- NOTE | 2018-06-03 14:55 | Internal Med History&Physical ---
Date of Encounter: 06/03/18 Time of Encounter: 14:53 Internal Medicine - H&P: HPI Chief complaint: chest pain Admitted From: Home History of present illness: Mr. Saleh is a 47 year old male with PMH CAD, HTN and diabetes admitted to [facility] on 06/03/2018 with complaints of chest pain. He is placed in observation status for further workup and treatment. Information obtained from chart review and patient report. Patient has known CAD and follows with cardiology. Says he has been having intermittent chest pain for the past several months. Had a stress test last month which was nondiagnostic as he was not able to achieve target heart rate. Now with persistent left-sided chest pain that radiates to his left arm. Reports associated shortness of breath and left arm paresthesia. Pain is described as sharp/squeezing at times. No alleviating or aggravating factors. Says chest pain similar to last cardiac event. No CP or SOB at time of my exam Past Med Surg Social Fam HX - Past Medical History Medical history: coronary artery disease, diabetes, GERD, hyperlipidemia, hypertension, kidney stones, other Additional medical history: pancreatitis Psychiatric history: no psych history - Past Surgical History Surgical History: angioplasty/stent, appendectomy, cholecystectomy, orthopedic, other Additional surgical history: Shoulder and elbow surgery, 1 cardiac stent - Social History Smoking Status: Current every day smoker Smokeless Tobacco Status: No Alcohol use: none Drug use: marijuana - Family History Sister Living Status: Still Living Hx Family Endocrine Disorder: Yes (DM) Mother Living Status: Still Living Hx Family Cardiac Disorders: Yes (HTN, MURMUR) Hx Family Respiratory Disorders: No Hx Family Cancer: No Hx Family GI Disorders: No Hx Family Endocrine Disorder: Yes (DIABETES) Hx Family Neuromuscular Disorders: No Hx Family Neurologic Disorders: No Hx Family HEENT Disorders: No Hx Family Autoimmune Disorders: No Father Living Status: Hx Family Cardiac Disorders: No Hx Family Respiratory Disorders: No Hx Family Cancer: No Hx Family GI Disorders: No Hx Family Endocrine Disorder: No Hx Family Neuromuscular Disorders: No Hx Family Neurologic Disorders: No Hx Family HEENT Disorders: No Hx Family Autoimmune Disorders: No Internal Medicine - H&P: Meds metFORMIN [Glucophage] 1,000 mg PO BID 09/17/16 [History] Aspirin 81 mg PO DAILY #60 tab.chew 09/20/16 [Rx] Atorvastatin [Lipitor] 40 mg PO HS #30 tablet 09/20/16 [Rx] Metoprolol XL (24 HR) Succ [Toprol Xl] 25 mg PO DAILY #30 tab.er.24h 09/20/16 [Rx] Clopidogrel [Plavix] 75 mg PO DAILY 11/19/16 [History] Famotidine [Heartburn Prevention] 20 mg PO BID 11/19/16 [History] Isosorbide MONOnitrate (24 HR) [Imdur] 150 mg PO DAILY 03/14/17 [History] Furosemide [Lasix] 40 mg PO DAILY 07/31/17 [History] Glimepiride [Amaryl] 2 mg PO 0800 07/31/17 [History] Ranolazine [Ranexa] 1,000 mg PO BID 07/31/17 [History] Insulin Glargine [Lantus] 44 unit SQ HS 06/03/18 [History] Pregabalin [Lyrica] 75 mg PO DAILY 06/03/18 [History] Allergy/AdvReac Type Severity Reaction Status Date / Time guaifenesin [From Robitussin] Allergy Hives Verified 03/23/17 09:29 All Systems PM: A 10-system review of systems was performed and is negative for pertinent findin gs except as documented above in the HPI. - Constitutional Constitutional: no chills, no fever(s), no night sweats - EENT Eyes: no change in vision, no discharge, no pain, no photophobia Ears: no ear discharge, no ear pain, no tinnitus Nose, mouth and throat: no dysphagia, no nasal discharge, no neck pain, no sore throat - Cardiovascular Cardiovascular ROS IM: chest pain, no diaphoresis, no dyspnea, no lightheadedness, no palpitations, no syncope - Respiratory Respiratory: no cough, no dyspnea, no wheezing, no excessive phlegm production - Gastrointestinal Gastrointestinal: no abdominal pain, no diarrhea, no hematemesis, no hematochezia, no melena, no nausea, no vomiting - Musculoskeletal Musculoskeletal ROS IM: no numbness, no tingling - Integumentary Integumentary IM: no rash, no unusual bruising - Neurological Neurological ROS: no confusion, no convulsions, no focal weakness, no numbness, no tingling, no tremor(s) - Hematologic/Lymphatic Hematologic/Lymphatic: no easy bruising - Constitutional Vitals: Temp Pulse Resp BP Pulse Ox 97.5 F L 88 22 120/82 98 06/03/18 11:54 06/03/18 12:26 06/03/18 13:52 06/03/18 13:52 06/03/18 12:26 General appearance: Present: A&O X 3, pleasant, no acute distress Exam: . - Head Head exam: Present: atraumatic, normocephalic - Eye Eye exam: Present: PERRL, conjuntiva pink, sclera anicteric Pupils: Present: PERRL - Neck Neck exam general surgery: Present: supple, trachea midline. Absent: lymphadenopathy - Respiratory Respiratory exam: Present: CTAB. Absent: accessory muscle use, rales, rhonchi, wheezes - Cardiovascular Cardiovascular exam: Present: RRR, +S1, +S2. Absent: diastolic murmur, gallop, rubs, systolic murmur - GI/Abdominal GI/Abdominal exam: Present: normal bowel sounds, soft, no peritoneal signs. Absent: distended, tenderness - Extremities Exam Extremities exam: Present: warm, radial pulses palpable and symmetrical. Absent: calf tenderness, cyanotic, pedal edema - Neurological Exam Neurological exam: Present: CN II-XII intact, oriented X3, no focal deficits. Absent: pronater drift, facial droop, speech deficit - Skin Skin exam: Present: dry, intact Internal Med - H&P Results - Labs CBC & Chem 7: 06/03/18 12:00 06/03/18 12:00 Labs: Short CBC 06/03/18 Range/Units 12:00 WBC 10.4 (4.3-11.1) K/mcL Hgb 15.3 (12.9-16.9) g/dL Hct 44.2 (37.5-50.1) % Plt Count 250 (140-400) K/mcL Neutrophils # 7.2 (1.6-8.9) K/mcL BMP 06/03/18 12:00 Sodium 137 Potassium 3.8 Chloride 100 Carbon Dioxide 29 BUN 13 Creatinine 0.94 Glucose 268 H Calcium 9.7 Cardiac Enzymes 06/03/18 Range/Units 12:00 Troponin I < 0.03 (< 0.04) ng/mL - Impressions ITS Impressions Chest X-Ray 06/03/18 11:58 IMPRESSION: Bibasilar linear infiltrates could represent subsegmental atelectasis or pneumonia D/ / Andrea Alvarado MD / Andrea Alvarado MD Interpreting Provider: Andrea Alvarado MD - Assessment and plan (1) Chest pain Current Visit: Yes Status: Acute Assessment and plan: Had a stress test approximately one week ago which was nondiagnostic as patient was unable to achieve target heart rate. Initial troponin negative, EKG without acute ST changes. Cycle troponin. NPO at midnight. Cardiology consult. Qualifiers: Chest pain type: unspecified Qualified Code(s): R07.9 - Chest pain, unspecified (2) CAD (coronary artery disease) Current Visit: No Status: Chronic Assessment and plan: hx PCI with [facility] in 03/2017. Follows with cardiology outpatient. With chest pain as noted above. Continue home ASA, Plavix, nitrate, BB, statin. Monitor on telemetry. Plan as noted above Qualifiers: Coronary Disease-Associated Artery/Lesion type: [place] artery [place] vs. transplanted heart: [place] heart Associated angina: with stable angina Qualified Code(s): I25.118 - Atherosclerotic heart disease of [place] coronary artery with other forms of angina pectoris (3) DM (diabetes mellitus) Current Visit: No Status: Chronic Assessment and plan: per hx. Holding home oral hypoglycemics. Cont home long-acting insulin, add SSI. Monitor blood sugar and titrate PRN Qualifiers: Diabetes mellitus type: type 2 Diabetes mellitus intermediate insulin use: with iuss acoustic analyst use Diabetes mellitus complication status: without complication Qualified Code(s): E11.9 - Type 2 diabetes mellitus without complications; Z79.4 - MCFP (current) use of insulin (4) HTN (hypertension) Current Visit: No Status: Chronic Assessment and plan: per hx. BP controlled. Continue home BP medication. Monitor BP and titrate PRN Qualifiers: Hypertension type: essential hypertension Qualified Code(s): I10 - Essential (primary) hypertension (5) DVT prophylaxis Current Visit: No Status: Acute Assessment and plan: lovenox - Time Spent With Patient Total time spent is greater than 50% in coordination of care (as documented) at patient's floor/unit and/or counseling patient:
[2018-06-03] MEDS ORDERED: Dextrose Gel 15 GM/37.5 ML TUBE PO PRN ×2 (14:59)
[2018-06-03] MEDS ORDERED: D5% in Water 1,000 ML IVC PRN (14:59)
[2018-06-03] MEDS ORDERED: *HR* Dextrose 50 % in Water (Syg) 50 ML SYRINGE IVP PRN (14:59)
[2018-06-03] MEDS: Insulin LISPRO 300 UNITS/3 ML VIAL SQ SCH ×2 (17:52→20:14)
[2018-06-03] MEDS: Insulin DETEMIR 100 UNIT/ML X5UNITS SQ SCH (20:16)
[2018-06-03] MEDS: Famotidine 20 MG TABLET PO SCH (20:16)
[2018-06-03] MEDS ORDERED: INSULIN GLARGINE 44 UNIT SQ SCH (21:00)
[2018-06-04] MEDS: *HR* Enoxaparin 40 MG/0.4 ML SYRINGE SQ SCH (05:42)
[2018-06-04] MEDS: Pregabalin 75 MG CAPSULE PO SCH (08:17)
[2018-06-04] MEDS: Metoprolol XL (24 HR) Succ 25 MG TAB.ER.24H PO SCH (08:17)
[2018-06-04] MEDS: Furosemide 20 MG TABLET PO SCH (08:17)
[2018-06-04] MEDS: Famotidine 20 MG TABLET PO SCH ×2 (08:17→21:47)
[2018-06-04] MEDS: Aspirin 81 MG TAB.CHEW PO SCH (08:18)
[2018-06-04] MEDS: Insulin LISPRO 300 UNITS/3 ML VIAL SQ SCH ×4 (08:18→21:48)
[2018-06-04] MEDS ORDERED: Isosorbide MONOnitrate (24 HR) 60 MG TAB.ER.24H PO SCH (09:00)
--- NOTE | 2018-06-04 09:59 | Cardiology Consult Note ---
<Elisabeth Miles Nathaniel - Last Filed: 06/04/18 10:04> Date of Encounter: 06/04/18 Time of Encounter: 09:00 Assessment and Plan (1) Chest pain Current Visit: Yes Status: Acute Patient presents with symptoms concerning for angina. Report symptoms consistent with prior episodes of angina in the past. Troponin negative x3. No acute ischemic ECG changes. Recent inconclusive stress ECG d/t failure to reach target HR. Outpatient nuclear stress pending. Most recent [facility] 07/2017 demonstrated stable, mild-moderate non-obstructive CAD. Chest pain free upon exam. Recommend low level nuclear exercise; had nitrates this AM, will hold imdur and plan for stress in AM. Check TTE today to evaluate structure and function. Continue asa, statin, BB, and plavix. Again, hold imdur for stress in AM--can resume upon discharge. Will continue to follow. Qualifiers: Chest pain type: chest pain due to myocardial ischemia Ischemic chest pain type: stable angina pectoris Qualified Code(s): I20.8 - Other forms of angina pectoris (2) Smoker Current Visit: No Status: Acute Smoking cessation counseling provided. (3) CAD (coronary artery disease) Current Visit: No Status: Chronic Plan as above. Hx of CAD s/p PCI to [facility] in 2016. Most recent [facility] 07/2017 demonstrated stable CAD. Asa, statin, BB, plavix. Hold imdur for nuclear stress in AM. Qualifiers: Coronary Disease-Associated Artery/Lesion type: [place] artery [place] vs. transplanted heart: [place] heart Associated angina: with unspecified angina Qualified Code(s): I25.119 - Atherosclerotic heart disease of [place] coronary artery with unspecified angina pectoris Discussion w patient/family: The assessment and plan as outlined above was discussed with the patient and/or family members who expressed understanding and agreement. All questions were answered. Thank you for involving us in the care of your patient. Please call with any questions. The patient will be discussed and reviewed with Dr. Dow, changes to be made accordingly. History of Present Illness Consult date: 06/04/18 Requesting physician: Roopa Greenberg Consult reason: Chest pain Chief complaint: Chest pain History of present illness: Mr. Saleh is a 47 year old male with PMHx significant for tobacco use, HTN, HLD, and CAD s/p PCI ([facility] 10/2016) who presented to the ED with complaints of midsternal chest discomfort. 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 Chest pain described as sharp and radiated down left arm, he notes that pain lasted for several hours. He left work and took a NTG tab once he arrived to his home, which improved discomfort. Pain started to recur which prompted ED evaluation. He was given an additional NTG in the ED which completely resolved chest/arm pain. He notes similar symptoms to prior angina. Reports he has "cut back" on cigarettes. Troponin negative x3. No acute ST/T wave abnormalities noted on ECG. Recent exercise stress test as outpatient, unable to achieve target HR--nuclear stress ordered for later this week. Recent CV testing: [facility] 07/2017: mild-moderate non-obstructive CAD; 50% mLAD, 40% ISR of [facility], 25% mRCA, 40% R PDA Stress ECG 04/2018: nondiagnostic d/t failure to reach target HR Past Med Surg Social Fam HX - Past Medical History Attestation: Yes The following information was validated with the patient. Source: patient Medical history: coronary artery disease, diabetes, GERD, hyperlipidemia, hypertension, kidney stones, other Additional medical history: pancreatitis Psychiatric history: no psych history - Past Surgical History Surgical History: angioplasty/stent, appendectomy, cholecystectomy, orthopedic, other Additional surgical history: Shoulder and elbow surgery, 1 cardiac stent - Social History Smoking Status: Current every day smoker Packs per day: 1 Smokeless Tobacco Status: No Alcohol use: none Drug use: marijuana - Family History Sister Living Status: Still Living Hx Family Endocrine Disorder: Yes (DM) Mother Living Status: Still Living Hx Family Cardiac Disorders: Yes (HTN, MURMUR) Hx Family Respiratory Disorders: No Hx Family Cancer: No Hx Family GI Disorders: No Hx Family Endocrine Disorder: Yes (DIABETES) Hx Family Neuromuscular Disorders: No Hx Family Neurologic Disorders: No Hx Family HEENT Disorders: No Hx Family Autoimmune Disorders: No Father Living Status: Hx Family Cardiac Disorders: No Hx Family Respiratory Disorders: No Hx Family Cancer: No Hx Family GI Disorders: No Hx Family Endocrine Disorder: No Hx Family Neuromuscular Disorders: No Hx Family Neurologic Disorders: No Hx Family HEENT Disorders: No Hx Family Autoimmune Disorders: No Medications and Allergies metFORMIN [Glucophage] 1,000 mg PO BID 04/22/17 [History] Aspirin 81 mg PO DAILY #60 tab.chew 09/20/16 [Rx] Atorvastatin [Lipitor] 40 mg PO HS #30 tablet 09/20/16 [Rx] Metoprolol XL (24 HR) Succ [Toprol Xl] 25 mg PO DAILY #30 tab.er.24h 09/20/16 [Rx] Clopidogrel [Plavix] 75 mg PO DAILY 11/19/16 [History] Famotidine [Heartburn Prevention] 20 mg PO BID 11/19/16 [History] Isosorbide MONOnitrate (24 HR) [Imdur] 150 mg PO DAILY 03/14/17 [History] Furosemide [Lasix] 40 mg PO DAILY 07/31/17 [History] Glimepiride [Amaryl] 2 mg PO 0800 07/31/17 [History] Ranolazine [Ranexa] 1,000 mg PO BID 07/31/17 [History] Insulin Glargine [Lantus] 44 unit SQ HS 06/03/18 [History] Pregabalin [Lyrica] 75 mg PO DAILY 06/03/18 [History] Allergy/AdvReac Type Severity Reaction Status Date / Time guaifenesin [From Robitussin] Allergy Hives Verified 03/23/17 09:29 All Systems Review: The remainder of the systems were reviewed and are negative - Cardiovascular Cardiovascular: as per HPI Physical Examination Vital Signs, Last 4 Hours Temp Pulse Resp BP Pulse Ox 06/04/18 07:31 97.7 F 62 18 111/72 97 General: Conversant, No Apparent Distress HEENT: Atraumatic, Normocephaly, Mucus Membranes Moist Cardiac: Reg Rate and Rhythm, Normal S1 and S2 Lungs: Normal Breath Sounds, No Wheeze, Rales, Rhonchi Neuro: Alert and responsive, No focal deficits noted Abdomen: Soft, Non-Tender Skin: No rashes noted on visualized skin Musculoskeletal: No Chest Wall Tenderness Extremities: Normal Pulses, Other (mild, non-pitting) Results 06/03/18 12:00 06/03/18 12:00 Lab Results 06/03/18 06/03/18 06/03/18 12:00 12:00 18:06 WBC 10.4 Hgb 15.3 Hct 44.2 Plt Count 250 Sodium 137 Potassium 3.8 Chloride 100 Carbon Dioxide 29 BUN 13 Creatinine 0.94 Glucose 268 H Calcium 9.7 Troponin I < 0.03 < 0.03 06/04/18 00:44 WBC Hgb Hct Plt Count Sodium Potassium Chloride Carbon Dioxide BUN Creatinine Glucose Calcium Troponin I < 0.03 Active Medications Aspirin (Aspirin) 81 mg PO DAILY [facility] Stop: 12/04/18 09:01 Last Admin: 06/04/18 08:18 Dose: 81 mg Atorvastatin Calcium (Lipitor) 40 mg PO HS [facility] Stop: 12/03/18 21:01 Last Admin: 06/03/18 20:16 Dose: 40 mg Clopidogrel Bisulfate (Plavix) 75 mg PO DAILY [facility] Stop: 12/04/18 09:01 Last Admin: 06/04/18 08:18 Dose: 75 mg Dextrose/Water (Dextrose 50% (Syg)) 25 ml IVP AD PRN PRN Reason: Hypoglycemia Stop: 12/03/18 15:00 Enoxaparin Sodium (Lovenox) 40 mg SQ 0600 [facility]; Protocol Stop: 12/04/18 06:01 Last Admin: 06/04/18 05:42 Dose: 40 mg Famotidine (Pepcid) 20 mg PO BID [facility]; Protocol Stop: 12/03/18 21:01 Last Admin: 06/04/18 08:17 Dose: 20 mg Furosemide (Lasix) 40 mg PO DAILY [facility] Stop: 12/04/18 09:01 Last Admin: 06/04/18 08:17 Dose: 40 mg Glucagon (Glucagen) 1 mg IM ONCE PRN PRN Reason: Hypoglycemia Stop: 12/03/18 15:00 Glucose (Gluctose) 15 gm PO ONCE PRN PRN Reason: Hypoglycemia Stop: 12/03/18 15:00 Glucose (Gluctose) 30 gm PO ONCE PRN PRN Reason: Hypoglycemia Stop: 12/03/18 15:00 Dextrose (Dextrose 5%) 1,000 mls @ 100 mls/hr IVC .Q10H PRN PRN Reason: HYPOGLYCEMIA Stop: 12/03/18 15:00 Insulin Detemir (Levemir) 44 unit SQ [facility] Stop: 12/03/18 21:01 Last Admin: 06/03/18 20:16 Dose: 44 unit Insulin Human Lispro (Humalog) 0 units SQ TIDAC [facility]; Protocol Stop: 12/03/18 16:31 Last Admin: 06/04/18 08:18 Dose: Not Given Insulin Human Lispro (Humalog) 0 units SQ HS [facility]; Protocol Stop: 12/03/18 21:01 Last Admin: 06/03/18 20:14 Dose: Not Given Isosorbide Mononitrate (Imdur) 150 mg PO DAILY [facility] Stop: 12/04/18 09:01 Last Admin: 06/04/18 08:17 Dose: 150 mg Metoprolol Succinate (Toprol Xl) 25 mg PO DAILY [facility] Stop: 12/04/18 09:01 Last Admin: 06/04/18 08:17 Dose: 25 mg Naloxone HCl (Narcan) 0.4 mg IVP Q2MIN PRN PRN Reason: SEE COMMENTS Stop: 12/03/18 14:50 Nitroglycerin (Nitroglycerin) 0.4 mg SL Q5MIN PRN PRN Reason: Chest Pain Stop: 12/03/18 12:05 Last Admin: 06/03/18 12:36 Dose: 0.4 mg Pregabalin (Lyrica) 75 mg PO DAILY [facility] Stop: 12/04/18 09:01 Last Admin: 06/04/18 08:17 Dose: 75 mg - Imaging and Cardiology Stress Test: report reviewed Echo: report reviewed Cardiac cath: report reviewed Other Results: 12 hour tele: avg HR=64 SR. - EKG Interpretation EKG results cardiology: personally reviewed Consult Discharge Plan - Plan Referrals: Doris Stanley, [employer]PER[employer]OR [Primary Care Provider] - <Oneal Dow A - Last Filed: 06/04/18 14:05> Date of Encounter: 06/04/18 - Attending Attestation I have personally performed a face to face evaluation on this patient. I have reviewed and agree with the documented findings and care plan as documented by the [employer] SUPERVISOR. History and Exam by me shows: 47-year-old male with history of CAD and current everyday smoking, also has family history of premature coronary artery disease in his mom, presenting with unstable angina. Currently chest pain-free. Recommend exercise nuclear stress test. Continue aspirin, high intensity statin, beta vincent and Imdur. Patient was counseled extensively on smoking cessation. Oneal Herman MD Assessment and Plan Discussion w patient/family: The assessment and plan as outlined above was discussed with the patient and/or family members who expressed understanding and agreement. All questions were answered. Thank you for involving us in the care of your patient. Please call with any questions. History of Present Illness History of present illness: Mr. Saleh is a 47 year old male All Systems Review: The remainder of the systems were reviewed and are negative Physical Examination Vital Signs, Last 4 Hours Temp Pulse Resp BP Pulse Ox 06/04/18 12:00 98.7 F 61 18 104/64 95 Results 06/03/18 12:00 06/03/18 12:00 Lab Results 06/03/18 06/04/18 18:06 00:44 Troponin I < 0.03 < 0.03
--- NOTE | 2018-06-04 11:23 | Internal Med Progress Note ---
<Aurea Cary P - Last Filed: 06/04/18 13:10> Hospitalist Progress Note - Encounter Date of Encounter: 06/04/18 Time of Encounter: 10:00 - Subjective Interval History: He is 47 year old male with PMH coronary artery disease, diabetes, GERD, hyperlipidemia, hypertension, kidney stones presented to ED for chest pain, the chest pain was sharp,pressure like, radiating to left arm and neck lasted for a few hours and better with nitro. He was known patient of CAD and he was following with cardiology in out patient. He did exercise stress test last month that was not conclusive as he couldnot exercise to target heart rate .His troponin done in ED was 0.03 ,Chest x-ray showed possible atelectasis vs ? pneumonia, EKG did not show any evidence of ischemia or infarction. He was admitted for cardiac workup and cardiac consultation. Today during my visit the patient was comfortably lying on the bed, he was not in acute distress, well oriented to time place and person, his chest pain has come down to 12/10, no new complaints, no shortness of breath, no cough, no leg swellings. Vitals are stable . Today,cardiology consultation has been done . His TTE is pending and he will go for stress test tomorrow and he will be on nothing by mouth from midnight - Exam Vitals: Temp Pulse Resp BP Pulse Ox 97.7 F 62 18 111/72 97 06/04/18 07:31 06/04/18 07:31 06/04/18 07:31 06/04/18 07:31 06/04/18 07:31 Exam: .Gen: Alert, awake , Oriented to time,place and person Chest: Diminished BS b/l, No crackles, No rales, No wheezing Heart: S1S2+ RRR No Murmurs Abd: Soft, NT, BS + No organomegaly Ext: No edema, pulses are palpable, no tenderness Neuro: No focal neuro deficits Psych: Normal mood Skin: No rash - Assessment and Plan (1) Chest pain Current Visit: Yes Status: Acute Assessment and Plan: The patient has sharp severe chest pain radiating to left arm and neck, relieved with nitroglycerin, has multiple risk factors : Diabetes, hypertension, hyperlipidemia, past CAD, chronic smoker. Serial troponin was less than 0.03, EKG did not show any evidence of ischemia or infarction. The latest C 07/2017 demonstrated stable, mild-moderate non- obstructive CAD. Hear score :7. Cardiology team has been consulted and planed for stress test tomorrow. Echocardiogram has been awaited He is already on aspirin and Plavix, Lipitor and beta vincent and cardiac monitoring. (2) CAD (coronary artery disease) Current Visit: Yes Status: Acute Assessment and Plan: Patient has history of CAD with PCI , latest LHC :stable CAD.07/2017 , recent exercise cardiac stress test done in April 2018 was inconclusive as he got failure to reach target HR.. He is already on aspirin, Plavix, beta vincent, Lipitor Cardiology team is on board. Echocardiogram has been awaited (3) Type 2 diabetes mellitus Current Visit: No Status: Chronic Assessment and Plan: He is a chronic patient with type 2 diabetes under insulin at home, he is on insulin sliding scale and insulin Levemir 44 unit HS, his blood sugar is 268 and POC glucose 254, we will closely monitor his blood sugar level and adjust insulin accordingly (4) Hypertension Current Visit: Yes Status: Acute Assessment and Plan: He is a patient of chronic hypertension, he is on metoprolol 25OD , Lasix 40 OD, his latest blood pressure is 111/72, we have resumed all medication and will monitor his blood pressure - Time Spent with Patient Total time spent is greater than 50% in coordination of care (as documented) at patient's floor/unit and/or counseling patient: Internal Medicine: Result - Labs CBC & Chem 7: 06/03/18 12:00 06/03/18 12:00 Labs: Short CBC 06/03/18 Range/Units 12:00 WBC 10.4 (4.3-11.1) K/mcL Hgb 15.3 (12.9-16.9) g/dL Hct 44.2 (37.5-50.1) % Plt Count 250 (140-400) K/mcL Neutrophils # 7.2 (1.6-8.9) K/mcL BMP 06/03/18 12:00 Sodium 137 Potassium 3.8 Chloride 100 Carbon Dioxide 29 BUN 13 Creatinine 0.94 Glucose 268 H Calcium 9.7 Cardiac Enzymes 06/03/18 06/03/18 06/04/18 Range/Units 12:00 18:06 00:44 Troponin I < 0.03 < 0.03 < 0.03 (< 0.04) ng/mL - Impressions Impressions Chest X-Ray 06/03/18 11:58 IMPRESSION: Bibasilar linear infiltrates could represent subsegmental atelectasis or pneumonia D/ / Andrea Alvarado MD / Andrea Alvarado MD Interpreting Provider: Andrea Alvarado MD Consult Discharge Plan - Plan Referrals: Doris Stanley CNP [Primary Care Provider] - <Zonia Owen - Last Filed: 06/04/18 16:04> Hospitalist Progress Note - Encounter Date of Encounter: 06/04/18 - Exam Vitals: Temp Pulse Resp BP Pulse Ox 98.2 F 79 16 110/64 95 06/04/18 15:16 06/04/18 15:16 06/04/18 15:16 06/04/18 15:16 06/04/18 15:16 - Assessment and Plan (1) DM (diabetes mellitus) Current Visit: No Status: Chronic (2) Chest pain Current Visit: Yes Status: Acute (3) DVT prophylaxis Current Visit: No Status: Acute (4) CAD (coronary artery disease) Current Visit: No Status: Chronic (5) HTN (hypertension) Current Visit: No Status: Chronic - Time Spent with Patient Total time spent is greater than 50% in coordination of care (as documented) at patient's floor/unit and/or counseling patient: Internal Medicine: Result - Labs CBC & Chem 7: 06/03/18 12:00 06/03/18 12:00 Labs: Cardiac Enzymes 06/03/18 06/04/18 Range/Units 18:06 00:44 Troponin I < 0.03 < 0.03 (< 0.04) ng/mL - Attending Attestation I examined this patient and my medical decision-making was reviewed with the Resident Physician Dr. Cary. I agree with the documented findings, disposition and treatment plan as described except to the extent set forth below. Mr. Saleh is a 47 y/o M with known past medical history of hypertension, hyperlipidemia, CAD status post PCI and chronic tobacco dependence patient presented emergency room with chest pain. Patient was admitted in the hospital and placed him on potline monitor. His serial troponin's were negative. Pt was evaluated by cardiology and scheduled for nuclear stress test tomorrow. Gen: Alert, awake, Oriented to time,place and person Chest: Diminished breath sounds B/L, No wheezing, No crackles, No rales Heart: S1S2+ RRR No murmurs Abd: Soft, NT, BS +, No organomegaly Ext: No edema, pulses are palpable, No calf tenderness Neuro : Benign findings Skin: No rash. a/p 1. Acute CP 2. CAD s/p PCI Cont SA, Plavix, BB and Statin Nuclear stress in AM appreciate cardiology recommendations 3. Chronic tobacco dependence Counseled to quit smoking <Aurea Cary - Last Filed: 06/04/18 13:10> (1) Chest pain Qualifiers: Chest pain type: chest pain due to myocardial ischemia Ischemic chest pain type: stable angina pectoris Qualified Code(s): I20.8 - Other forms of angina pectoris (3) Type 2 diabetes mellitus Qualifiers: Diabetes mellitus group home insulin use: without terminal gauger supervisor use Diabetes mellitus complication status: without complication Qualified Code(s): E11.9 - Type 2 diabetes mellitus without complications <Zonia Owen - Last Filed: 06/04/18 16:04> (1) DM (diabetes mellitus) Qualifiers: Diabetes mellitus type: type 2 Diabetes mellitus terminal gauger supervisor insulin use: with group home use Diabetes mellitus complication status: without complication Qualified Code(s): E11.9 - Type 2 diabetes mellitus without complications; Z79.4 - intermediate (current) use of insulin (2) Chest pain Qualifiers: Chest pain type: chest pain due to myocardial ischemia Ischemic chest pain type: stable angina pectoris Qualified Code(s): I20.8 - Other forms of angina pectoris (4) CAD (coronary artery disease) Qualifiers: Coronary Disease-Associated Artery/Lesion type: [place] artery [place] vs. transplanted heart: [place] heart Associated angina: with stable angina Qualified Code(s): I25.118 - Atherosclerotic heart disease of [place] coronary artery with other forms of angina pectoris (5) HTN (hypertension) Qualifiers: Hypertension type: essential hypertension Qualified Code(s): I10 - Essential (primary) hypertension
--- NOTE | 2018-06-04 15:11 | Electrocardiograph Report ---
[address] [address] Test Date: 2018-06-03 Pat Name: Andrea Saleh Department: [id number] Room: 3B21 Gender: M [employer] Cutter: : 1970 Requested By: Pancho Gregory Order Number: [id number] Reading MD: Peter Guillen Measurements Intervals [place] Rate: 77 P: 53 NV: 132 QRS: 17 QRSD: 105 T: 61 QT: 364 QTc: 412 Interpretive Statements Sinus rhythm Electronically Signed On 06-04-2018 15:09:12 EST by Peter Guillen
[2018-06-04] MEDS: Insulin DETEMIR 100 UNIT/ML X5UNITS SQ SCH (21:48)
[2018-06-05] MEDS: *HR* Enoxaparin 40 MG/0.4 ML SYRINGE SQ SCH (05:20)
[2018-06-05] MEDS ORDERED: Regadenoson 0.4 MG/5 ML SYRINGE IVP ONE (05:50)
[2018-06-05 06:01] LABS: BUN/Creatinine Ratio 16 (6-26); Blood Urea Nitrogen 12 mg/dL (6-20); Calcium 8.7 mg/dL (8.6-10.3); Carbon Dioxide 29 mEq/L (23-29); Chloride 104 mEq/L (98-107); Glucose 222 mg/dL (70-105); Osmolality,Calculated 291 (280-300); Potassium 3.5 mEq/L (3.5-5.1); Sodium 137 mEq/L (136-145); eGFR For Non-African Americans > 60 (> 60)
[2018-06-05] MEDS: Insulin LISPRO 300 UNITS/3 ML VIAL SQ SCH ×2 (10:54→17:05)
--- NOTE | 2018-06-05 10:58 | Discharge Summary ---
<Aurea Cary P - Last Filed: 06/05/18 15:40> - NOTES TO OUTPATIENT PROVIDER Notes to Outpatient Provider: * The patient will follow up with primary provider within one week. * The patient was follow-up with property handler within 2-3 weeks. Orders not resulted at time of discharge: Pending orders 06/05/18 09:54 NM mila perf SPECT multi [NM] Routine Date of Encounter: 06/05/18 Time of Encounter: 10:00 - Discharge Diagnosis (1) Chest pain Priority: Primary Status: Acute Comments: Chest Pain has resolved LHC :done today , no any acute intervention needed. Qualifiers: Chest pain type: chest pain due to myocardial ischemia Ischemic chest pain type: unspecified angina pectoris type Qualified Code(s): I25.9 - Chronic ischemic heart disease, unspecified (2) CAD (coronary artery disease) Priority: Primary Status: Acute Qualifiers: Coronary Disease-Associated Artery/Lesion type: unspecified vessel or lesion type [place] vs. transplanted heart: [place] heart Associated angina: angina presence unspecified Qualified Code(s): I25.10 - Atherosclerotic heart disease of [place] coronary artery without angina pectoris (3) Type 2 diabetes mellitus Priority: Secondary Status: Chronic Qualifiers: Diabetes mellitus assisted insulin use: without assisted use Diabetes mellitus complication status: without complication Qualified Code(s): E11.9 - Type 2 diabetes mellitus without complications (4) Hypertension Priority: Secondary Status: Chronic Qualifiers: Hypertension type: essential hypertension Qualified Code(s): I10 - Essential (primary) hypertension Hospital course: Mr. Saleh is a 47 year old male with PMH coronary artery disease, diabetes, GERD, hyperlipidemia, hypertension, kidney stones presented to ED for chest pain, which was sharp,pressure like in character,radiating to left arm and neck lasted for a few hours and better with nitro tabs. He was known patient of CAD with regular follow up with cardiology in out patient. He had done stress test recently but it was not conclusive as he couldn't exercise to target heart rate .His troponin series was <0.03 ,Chest x-ray showed possible pneumonia/ atelectasis, EKG did not show any evidence of ST & T changes He was admitted in in patient on 06/03/2017. His ECHO showed :LVEF 55%. Indeterminate diastolic function. Normal right ventricular structure and function. Mild mitral regurgitation. No pulmonary hypertension. His cardiac Nuclear stress test done today was slightly abnormal , so they took him for [facility] and it was benign. Today during my visit the patient was comfortably lying on the bed, he was not in acute distress, well oriented to time place and person, his chest pain has come down to 0-1/10, no other new complaints and clinically much better after admission. Vitals are stable . We are planning to send him home and he was appear to follow-up with primary care provider within a week and property handler within 2-3 weeks. - Time Spent with Patient Total time spent providing and/or coordinating discharge services: - Discharge Medications Home Medications: RX: metFORMIN [Glucophage] 1,000 mg PO BID 09/17/16 [History] RX: Aspirin 81 mg PO DAILY #60 tab.chew 09/20/16 [Rx] RX: Atorvastatin [Lipitor] 40 mg PO HS #30 tablet 09/20/16 [Rx] RX: Metoprolol XL (24 HR) Succ [Toprol Xl] 25 mg PO DAILY #30 tab.er.24h 09/20/16 [Rx] RX: Clopidogrel [Plavix] 75 mg PO DAILY 11/19/16 [History] RX: Famotidine [Heartburn Prevention] 20 mg PO BID 11/19/16 [History] RX: Isosorbide MONOnitrate (24 HR) [Imdur] 150 mg PO DAILY 03/14/17 [History] RX: Furosemide [Lasix] 40 mg PO DAILY 07/31/17 [History] RX: Glimepiride [Amaryl] 2 mg PO 0800 07/31/17 [History] RX: Ranolazine [Ranexa] 1,000 mg PO BID 07/31/17 [History] RX: Insulin Glargine [Lantus] 44 unit SQ HS 06/03/18 [History] RX: Pregabalin [Lyrica] 75 mg PO DAILY 06/03/18 [History] Allergies/Adverse Reactions: Allergy/AdvReac Type Severity Reaction Status Date / Time guaifenesin [From Robitussin] Allergy Hives Verified 03/23/17 09:29 Date of admission: 06/03/18 13:19 Primary care physician: Doris Stanley CNP Consults: 06/03/18 14:52 Consult to Cardiology [CONS] Routine Comment: Consulting Provider: Cardiology Elizabeth Reason for Consult: chest pain Call Completed: Yes - Constitutional Vitals: Temp Pulse Resp BP Pulse Ox 97.5 F L 55 18 89/58 98 06/05/18 09:24 06/05/18 09:24 06/05/18 09:24 06/05/18 09:24 06/05/18 09:24 General appearance: Present: A&O X 3, pleasant, no acute distress, answers questions appropriately Exam: .Gen: Alert, awake , Oriented to time,place and person Chest: Diminished BS b/l, No crackles, No rales, No wheezing Heart: S1S2+ RRR No Murmurs Abd: Soft, NT, BS + No organomegaly Ext: No edema, pulses are palpable, no tenderness Neuro: No focal neuro deficits Psych: Normal mood Skin: No rash - Patient Status Disposition: Home, Self-Care Condition: Good Functional capacity at discharge: independent ambulation Overall status at discharge: patient is progressing back to baseline - Discharge Instructions Follow Up With: Doris Stanley CNP [Primary Care Provider] - 06/08/18 10:30 am - Diet and Activity Activity: resume usual activities as tolerated Diet: low fat, low cholesterol <Zonia Owen - Last Filed: 06/05/18 16:33> Orders not resulted at time of discharge: Pending orders 06/05/18 09:54 NM mila perf SPECT multi [NM] Routine 06/05/18 13:33 Culture,Urine [RM] Stat Date of Encounter: 06/05/18 - Discharge Diagnosis (1) DM (diabetes mellitus) Status: Chronic Qualifiers: Diabetes mellitus type: type 2 Diabetes mellitus career center director insulin use: with career center director use Diabetes mellitus complication status: without complication Qualified Code(s): E11.9 - Type 2 diabetes mellitus without complications; Z79.4 - prosecuting attorney (current) use of insulin (2) Chest pain Status: Acute Qualifiers: Chest pain type: chest pain due to myocardial ischemia Ischemic chest pain type: unspecified angina pectoris type Qualified Code(s): I25.9 - Chronic ischemic heart disease, unspecified (3) DVT prophylaxis Status: Acute (4) CAD (coronary artery disease) Status: Chronic Qualifiers: Coronary Disease-Associated Artery/Lesion type: [place] artery [place] vs. transplanted heart: [place] heart Associated angina: with stable angina Qualified Code(s): I25.118 - Atherosclerotic heart disease of [place] coronary artery with other forms of angina pectoris (5) HTN (hypertension) Status: Chronic Qualifiers: Hypertension type: essential hypertension Qualified Code(s): I10 - Essential (primary) hypertension Hospital course: Mr. Saleh is a 47 year old male - Time Spent with Patient Total time spent providing and/or coordinating discharge services: Date of admission: 06/03/18 13:19 Primary care physician: Doris Stanley CNP Consults: 06/03/18 14:52 Consult to Cardiology [CONS] Routine Comment: Consulting Provider: Cardiology Elizabeth Reason for Consult: chest pain Call Completed: Yes - Constitutional Vitals: Temp Pulse Resp BP Pulse Ox 97.8 F 58 16 126/84 98 06/05/18 15:35 06/05/18 15:50 06/05/18 15:50 06/05/18 15:50 06/05/18 15:50 - Attending Attestation I examined this patient and my medical decision-making was reviewed with the Resident Physician Dr. Cary. I agree with the documented findings, disposition and treatment plan as described except to the extent set forth below. Mr. Saleh is a 47 y/o M with known past medical history of hypertension, hyperlipidemia, CAD status post PCI and chronic tobacco dependence patient presented emergency room with chest pain. Patient was admitted in the hospital and placed him on electronic device monitor. His serial troponin's were negative. Pt was evaluated by cardiology. He denied any active chest pain now. He did have an episode of hematuria this morning. He denied any burning sensation while urinating. Denied any increased frequency. Gen: Alert, awake, Oriented to time,place and person Chest: Diminished breath sounds B/L, No wheezing, No crackles, No rales Heart: S1S2+ RRR No murmurs Abd: Soft, NT, BS +, No organomegaly Ext: No edema, pulses are palpable, No calf tenderness Neuro : Benign findings Skin: No rash. a/p 1. Acute CP 2. CAD s/p PCI Cont ASA, Plavix, BB and Statin His nuclear stress test came back as slightly abnormal. Manager Spanish recommended LHC. He did go for LHC this afternoon which came back is completely normal. Cardiology cleared him to discharge home today appreciate cardiology recommendations 3. Chronic tobacco dependence Counseled to quit smoking 4. Hematuria No signs of infection unclear etiology improving recommended to follow up with PCP as outpatient
[2018-06-05] MEDS: Pregabalin 75 MG CAPSULE PO SCH (11:02)
[2018-06-05] MEDS: Famotidine 20 MG TABLET PO SCH (11:02)
[2018-06-05] MEDS: Aspirin 81 MG TAB.CHEW PO SCH (11:02)
[2018-06-05] MEDS: Furosemide 20 MG TABLET PO SCH (11:03)
[2018-06-05] MEDS: Metoprolol XL (24 HR) Succ 25 MG TAB.ER.24H PO SCH (11:03)
--- NOTE | 2018-06-05 11:35 | Cardiology Progress Note ---
Date of Encounter: 06/05/18 Time of Encounter: 11:20 Assessment and Plan (1) Chest pain Current Visit: Yes Status: Acute Patient presents with symptoms concerning for angina. Reports chest pain similar to what he felt before his previous stent. Troponin negative x3. No acute ischemic ECG changes. Recent inconclusive stress ECG d/t failure to reach target HR. Inpatient nuclear stress test completed and was inconclusive due to GI uptake limiting interpretation of inferior wall. Most recent [facility] 07/2017 demonstrated stable, mild-moderate non-obstructive CAD. 50% mLAD stenosis seen. Chest pain free currently. TTE pending. Discussed stress test results with Dr. Dow and [facility] recommended. Discussed [facility] R/B/A with patient and family and he agrees to proceed. Continue asa, statin, BB, and plavix. Qualifiers: Chest pain type: chest pain due to myocardial ischemia Ischemic chest pain type: unspecified angina pectoris type Qualified Code(s): I25.9 - Chronic ischemic heart disease, unspecified (2) CAD (coronary artery disease) Current Visit: Yes Status: Acute H/o PCI to the ramus in 2017. Continue asa, statin, bb, plavix. Qualifiers: Coronary Disease-Associated Artery/Lesion type: unspecified vessel or lesion type [place] vs. transplanted heart: [place] heart Associated angina: angina presence unspecified Qualified Code(s): I25.10 - Atherosclerotic heart disease of [place] coronary artery without angina pectoris (3) Tobacco use Current Visit: Yes Status: Acute Smoking cessation stressed. Discussion w patient/family: The assessment and plan as outlined above was discussed with the patient and/or family members who expressed understanding and agreement. All questions were answered. Thank you for involving us in the care of your patient. Please call with any questions. Subjective Principal diagnosis: Chest pain Interval history: Mr Saleh reports he is feeling ok. C/o feeling tired. No recurrent chest pain. S/p stress test this morning. Objective Vital Signs, Last 4 Hours Temp Pulse Resp BP Pulse Ox 06/05/18 09:24 97.5 F L 55 18 89/58 98 General: Conversant, No Apparent Distress HEENT: Atraumatic, Normocephaly, Mucus Membranes Moist Neck: No JVD, Normal carotid pulses Cardiac: Reg Rate and Rhythm, Normal S1 and S2, No Murmur Lungs: Normal Breath Sounds, No Wheeze, Rales, Rhonchi Neuro: Alert and responsive, No focal deficits noted Abdomen: Soft, Non-Tender Skin: No rashes noted on visualized skin Musculoskeletal: No Chest Wall Tenderness Extremities: No Clubbing, No Cyanosis, No Edema, Normal Pulses Results 06/03/18 12:00 06/05/18 03:49 Lab Results 06/05/18 03:49 Sodium 137 Potassium 3.5 Chloride 104 Carbon Dioxide 29 BUN 12 Creatinine 0.77 Glucose 222 H Calcium 8.7 - Imaging and Cardiology Echo: report reviewed - EKG Interpretation EKG results cardiology: personally reviewed Consult Discharge Plan - Plan Referrals: Doris Stanley CNP [Primary Care Provider] - 06/08/18 10:30 am
[2018-06-05] MEDS ORDERED: ISOVUE-370 200 ML INFUS..BTL ONE (13:26)
[2018-06-05] MEDS ORDERED: 0.9 % Sodium Chloride 1,000 ML ONE ×2 (13:26→13:44)
[2018-06-05] MEDS ORDERED: *HR* Heparin 10,000 UNIT/10 ML VIAL ONE (13:26)
[2018-06-05] MEDS ORDERED: Heparin 1,000 UNITS/500 mL 500 ML ONE (13:26)
[2018-06-05] MEDS ORDERED: Nitroglycerin 1,000 MCG/10 ML VIAL IV ONE (13:26)
--- NOTE | 2018-06-05 13:38 | Pre-Sedation Evaluation ---
Pre-sedation evaluation - Pre-sedation checklist Date of procedure: 06/05/18 Procedure: [facility] Recent Vitals: Last Vital Signs Temp 97.9 F 06/05/18 11:58 Pulse 75 06/05/18 11:58 Resp 18 06/05/18 11:58 BP 113/71 06/05/18 11:58 Pulse Ox 96 06/05/18 11:58 H&P (including ROS) documented in medical record: Yes Previous reaction to sedatives/anesthetics: No Dietary Status: NPO after Midnight Airway Assessment: Patient can open mouth completely, TMJ function normal, Micrognathia (under-bite, receding chin) absent, Neck with adequate range of mot ion Dentition: No loose teeth or bridges Possible difficult airway: No ASA Classification *see protocol: CLASS II-Mild systemic disease Plan of Care: Pt appropriate candidate for procedure/moderate/conscious sedation, Risks/benefits of procedure/sedation discussed w/ patient/family Cardiac Registry (Cardio Only) - Functional Capacity Functional Capacity: >=4 METS with symptoms - Clincal Frailty Scale Clinical Frailty Scale: Managing Well
[2018-06-05] MEDS ORDERED: *HR* Midazolam HCl 2 MG/2 ML VIAL ONE (13:52)
[2018-06-05] MEDS ORDERED: *HR* FentaNYL (PF) 100 MCG/2 ML VIAL ONE (13:53)
[2018-06-05 14:21] LABS: Bilirubin,Urine Negative (Negative); Blood,Urine Large (Negative); Clarity,Urine Clear (Clear); Glucose,Urine (UA) Normal (Normal); Ketones,Urine Negative (Negative); Leukocyte Esterase,Urine Trace (Negative); Nitrite,Urine Negative (Negative); Protein,Urine 30 mg/dL (Neg-Trace); Specific Gravity,Urine < 1.005 (1.010-1.025); Urobilinogen,Urine Normal (Normal)
[2018-06-05 14:25] LABS: Bacteria,Urine None Seen per hpf (None-Few); Hyaline Casts,Urine None Seen per lpf (None-Few); RBC,Urine TNTC per hpf (0-3); Squamous Epithelial Cell,Urine None Seen per lpf (None-Few)
[2018-06-05 14:27] LABS: Color,Urine Orange (Yellow)
--- NOTE | 2018-06-05 15:03 | Invasive Diagnostic Lab Proc ---
Name: Andrea Saleh Date of Study: 06/05/2018 Date: 1970 Ht: 70.9in Medical Record#: [id number] Age: 47 Wt: 229.72lb Gender: Male BSA: 2.23 Order #: [id number] BMI: 32.16 Physicians Procedure Physician: Alda Guillen MD, [facility] Referring MD: Referring MD: Staff Name Position Time In Francine Sousa RT (R) Monitor 02:05 PM Darrel Urrutia RN Meat Department Manager 02:05 PM [facility] 02:05 PM Indications Indication Procedures Performed Procedure L HRT ARTERY/VENTRICLE ANGIO Pre-Procedure Checklist Informed consent is complete signed and on chart. H&P is on chart. ID band is on and ID verified with patient. Patient NPO for procedure The procedure was described for the patient and questions were answered. Blood Pressure: 92/74 ECG is on chart. Rhythm: Sinus Bradycardia Plan of Care Patient will tolerate the procedure without complications. Adequate level of comfort will be maintained. Hemodynamics will remain stable Patient will recover from procedure without complications. Respiratory function will be maintained. Cardiac rhythm will remain stable. Patient temperature will be maintained. Patient and/or family have verbalized understanding of the procedure. Patient Education Chief Complaint/Reason for Test: Cardiac Cath Developmental Category: Adult (18-64 years) Developmentally Appropriate for Age: Yes Learning Barriers: None Education Needs: Procedure Education Method: Verbal Information Taught: Cardiac Cath Educational Evaluation: Able to repeat information Intravenous Access Time IV Size Location DC'd Fluid/Drip Rate Units RN 18g 1 /" Patent On Arrival Rt Antecubital 0.9NaCl 50 ml/hr Darrel Urrutia RN Allergies [email or web address] Vital Signs Time BP (mmHg) HR (bpm) O2 Sat. RR (bpm) LOC 11:00 PM / % 02:07 PM / % 5 = Fully awake and oriented or at pre-proc level 02:07 PM / % 3 = Answers simple questions/follows commands 02:22 PM / % 3 = Answers simple questions/follows commands 02:08 PM 92 / 74 48 100 % 17 02:11 PM 133 / 75 57 100 % 13 02:13 PM 117 / 71 68 97 % 27 02:18 PM 124 / 83 71 97 % 21 02:23 PM 128 / 73 62 96 % 15 02:28 PM 122 / 70 67 94 % 22 02:33 PM 127 / 75 64 96 % 17 02:38 PM 127 / 77 % Procedural Medications Time Medication Dose Units Method Given By 02:09 PM Versed 2 mg Intravenous Darrel Urrutia RN 02:09 PM Fentanyl 50 mcg Intravenous Darrel Urrutia RN 02:18 PM Lidocaine 2% 17 ml Subcutaneous Alda Guillen MD, [facility] ASA Classification: CLASS II- Mild systemic disease (i.e. well-controlled diabetes, hypertension, asthma, cigarette smoking) Augusto Score Preprocedure Postprocedure Activity 2- Moves 4 extremities sustained head lift Activity 2- Moves 4 extremities sustained head lift Circulation 2- SBP +/= 20 points of pre-anesthetic level Circulation 2- SBP +/= 20 points of pre-anesthetic level Consciousness 2- Awake and alert oriented x 3 Consciousness 2- Awake and alert oriented x 3 O2 Saturation 2- Able to maintain O2 satruation of 92% on room air O2 Saturation 2- Able to maintain O2 satruation of 92% on room air Respiratory 2- Able to deep breathe and cough well Respiratory 2- Able to deep breathe and cough well Total Score 10 Total Score 10 Contrast Agent: Isovue Diagnostic Contrast: 113 ml Total Contrast: 113 ml Fluoro Dose: 4114 mGy Procedure Log Time Note Enter By 01:47 PM Pt arrived to laborer rags 2 at 13:47 [email or web address] 02:05 PM Francine Sousa RT (R) Position: Monitor Time in: 14:05 [email or web address] 02:05 PM Darrel Urrutia RN Position: Meat Department Manager Time in: 14:05 [email or web address] 02:06 PM Radha Monroy RT (R) Position: Scrub Time in: 14:05 [email or web address] 02:06 PM Patient charges- Angio tray pack, Navilyst 3mm J, Pulse Oximetry and ACIST tubing and transducer [email or web address] 02:06 PM Case Delayed No [email or web address] 02:06 PM Hair removed from procedure site in holding area using clippers. Bilateral groin prepped with Chloraprep by Hussain Amin RT (R), then patient was draped. Skin intact. [email or web address] 02:06 PM Physician arrived 14:06 [email or web address] 02:06 PM Ra completed [email or web address] 02:06 PM Sign in performed according to hospital policy. Informed consent was obtained. [email or web address] 02:06 PM Procedure start 14:06 [email or web address] 02:06 PM ASA Class CLASS II- Mild systemic disease (i.e. well-controlled diabetes, hypertension, asthma, cigarette smoking) [email or web address] 02:06 PM CathStat 02:07 PM Time: 14:07 Patient comfortable and pain free: Yes [email or web address] 02:07 PM Time: 14:07LOC: 5 = Fully awake and oriented or at pre-proc level [email or web address] 02:08 PM Vitals capture started with the following parameters, Patient=Adult, Interval=5 min, Initial Zgcvbhxm=319 mmHg, Deflation Rate=5 mmHg, Cuff placed on Right Arm 02:08 PM Recorded ECG: HR=54 Condition=Condition 1 02:08 PM HR=48 bpm, NIBP=92/74 mmhg, SiZ0=380.0 %, Resp=17 B/min, Comment=SB 02:09 PM Time: 14:09 Versed 2 mg Intravenous Given by Darrel Urrutia RN [email or web address] 02:09 PM Time: 14:09 Fentanyl 50 mcg Intravenous Given by Darrel Urrutia RN [email or web address] 02:09 PM NIBP STAT measurement started. 02:11 PM HR=57 bpm, YUUY=220/75 mmhg, SlU5=919.0 %, Resp=13 B/min, Comment=SB 02:13 PM HR=68 bpm, FKOL=560/71 mmhg, SpO2=97.0 %, Resp=27 B/min, Comment=SB 02:17 PM Pressure channel 1 zeroed. 02:18 PM Time out was performed according to hospital policy. Conscious sedation and anesthesia was achieved (see medication log with in this report above) [email or web address] PM HR=71 bpm, CHEF=697/83 mmhg, SpO2=97.0 %, Resp=21 B/min, Comment=SR 02:19 PM Time: 14:18 17 ml Lidocaine 2% to right groin Subcutaneous Given by [facility], [email or web address] PM Access obtained by percutaneous puncture. 5Fr 10cm Terumo [place] sheath placed in right Femoral artery. [id number] [email or web address] 02:20 PM 0.035 145cm Navilyst 3mmJ wire [id number] [email or web address] 02:20 PM 5Fr FL 4 catheter inserted over the wire DNC [email or web address] 02:21 PM Wire removed [email or web address] 02:21 PM LCA angiography performed in multiple views. [email or web address] 02:22 PM Time: 14:07LOC: 3 = Answers simple questions/follows commands [email or web address] 02:22 PM Time: 14:07 Patient comfortable and pain free: Yes [email or web address] 02:23 PM Recorded Pressure: Ao, HR=64, Condition=Condition 1 (Aorta) Ao 114/77/94 02:23 PM HR=62 bpm, ASNE=020/73 mmhg, SpO2=96.0 %, Resp=15 B/min, Comment=SR 02:25 PM Recorded Pressure: Ao, HR=62, Condition=Condition 1 (Aorta) Ao 101/65/81 02:26 PM Pressure channel 1 zeroed. 02:26 PM Catheter removed [email or web address] 02:26 PM 5Fr FR 4 catheter inserted over the wire DN [email or web address] 02:26 PM RCA angiography performed in multiple views. [email or web address] 02:28 PM Recorded Pressure: Ao, HR=67, Condition=Condition 1 (Aorta) Ao 107/70/86 02:28 PM Catheter removed [email or web address] 02:28 PM 5Fr Pigtail catheter inserted over the wire DN [email or web address] 02:28 PM HR=67 bpm, HNNC=244/70 mmhg, SpO2=94.0 %, Resp=22 B/min, Comment=SR 02:29 PM Catheter crossed the aortic valve and was selectively placed in the left ventricle. Pressures recorded on pullback for left heart catheterization. [email or web address] 02:29 PM Bolus angiogram of left Ventricle complete: 8 ml/sec for a total of 24 mls [email or web address] 02:29 PM Pressure channel 1 zeroed. 02:29 PM Recorded Pressure: LV, HR=64, Condition=Condition 1 (Left Ventricle) LV 110/-7/10 02:30 PM Recorded Pressure: LV, Ao, HR=58, Condition=Condition 1 (Left Ventricle) LV 129/40/74, (Aorta) Ao 92/60/75 02:31 PM Catheter removed [email or web address] 02:32 PM Bolus angiogram of right Femoral complete: 4 ml/sec for a total of 7 mls [email or web address] 02:33 PM HR=64 bpm, MEBV=173/75 mmhg, SpO2=96.0 %, Resp=17 B/min, Comment=SR 02:34 PM Procedure completed at 14:34 06/05/2018 [email or web address] 02:34 PM Coronary Dominance: Right [email or web address] 02:34 PM Did you address RUSS flow and Dominance? Yes [email or web address] 02:35 PM Sign out completed: Radiation Dose 318.59 mGy, 4114.31 cGy/cm2 Fluoro Time: 3.7 Isovue 370 - 200ml contrast 113 ml given by Alda Guillen MD, [facility]. Complications: None. The patient was discharged out of the labor representative in stable condition. Cardiac Rehab Consult needed: NoConfirmed administered medications: Yes [email or web address] 02:35 PM Isovue 370 - 200ml,1 Bottle(s) used. [email or web address] 02:35 PM Arterial sheath pulled, Mynx closure device used and was Successful S/N. [email or web address] 02:35 PM Estimated Blood Loss: minimal [email or web address] 02:35 PM Post ECG NSR [email or web address] 02:35 PM Post Blood Pressure 127/75 [email or web address] 02:35 PM Information taught Cardiac Cath and Mynx [email or web address] 02:35 PM Education needs Procedure, Plan of Care, and Disease Process [email or web address] 02:36 PM Learning barriers :None [email or web address] 02:36 PM Education Methods Verbal [email or web address] 02:36 PM Education evaluation Able to repeat information [email or web address] 02:36 PM Site status No bleeding/hematoma - Rt Groin as reported by Sites, Radha RT (R) at 14:36 [email or web address] 02:36 PM Opsite applied [email or web address] 02:36 PM Delay to floor No [email or web address] 02:36 PM Family placed in consult room. [email or web address] 02:36 PM Complications: None [email or web address] 02:37 PM Time: 14:22 Patient comfortable and pain free: Yes [email or web address] 02:37 PM Time: 14:22LOC: 3 = Answers simple questions/follows commands [email or web address] 02:38 PM FRSN=548/77 mmhg, Comment=SR 02:55 PM Report given to Yolanda LIGHT Pt taken to Room #21. 14:55 [email or web address] 02:56 PM Patient out of room: 14:56 [email or web address] Complications Complication None None Hemodynamics Pressures Site Systolic/A Wave Diastolic/V Wave Mean AO 114 77 94 AO 101 65 81 AO 107 70 86 LV 110 -7 10 LV 129 40 74 AO 92 60 75 Post Procedure Information Blood Pressure: 127/75 mmHg Rhythm: NSR Post procedural instructions were given Closure Device Time Device Success/Fail 06/05/2018 2:37:00 PM MynxGrip Successful Site Checks Time Location Status Staff Sheath In? Note 02:36 PM Rt Groin No bleeding/hematoma Sites, Radha RT (R) Pulses Time Site Pre-Procedure Post-Procedure Note Bilateral DP & PT 2+ 2+ Bilateral radial 2+ 2+ Updated by Francine Sousa, RT(R) on 06/05/2018 2:56:13 PM electronically signed on 06/05/2018 2:57:21 PM with status of Final
[2018-06-05 17:05] VITALS: BP 114/72
== END 2018-06-05 19:30 | disposition home or self-care (01) ==
LOC: EMEROOARM 11:50 → 3BNU 11:50 → SUATTDRO 13:19 → 3BNU 14:23
PROVIDERS: ADMIT Internal Medicine; ATTEND Family Medicine

== ENCOUNTER 2019-04-04 17:01 | Observation (INO) ==
[2019-04-04] MEDS ORDERED: cefTRIAXone 1,000 MG in Water for inj. (sterile) 10 ML IVP ONE (17:15)
[2019-04-04] MEDS ORDERED: Isovue-370 500 ML BOTTLE IVP ONE (17:16)
[2019-04-04] MEDS: 0.9 % Sodium Chloride 1,000 ML IVC SCH ×2 (17:43→18:37)
[2019-04-04] MEDS ORDERED: Ondansetron 4 MG/2 ML VIAL IVP ONE (17:44)
[2019-04-04 17:51] LABS: Basophils % 0.3 %; Hemoglobin 17.1 g/dL (12.9-16.9); Immature Granulocytes % 0.4 % (0-4); Lymphocytes # 1.3 K/mcL (0.6-4.6); Lymphocytes % 8.5 %; Mean Corpuscular HGB Conc 36.4 g/dL (31.6-35.5); Mean Corpuscular Hemoglobin 32.7 pg (28.0-33.3); Mean Corpuscular Volume 89.9 fL (83.0-100.0); Mean Platelet Volume 9.3 fL (9.4-12.4); Monocytes # 0.5 K/mcL (0.0-1.3); Monocytes % 3.3 %; Neutrophils # 13.4 K/mcL (1.6-8.9); Platelet Count 334 K/mcL (140-400); Red Blood Count 5.23 M/mcL (4.19-5.50); Segmented Neutrophils % 87.5 %; White Blood Count 15.3 K/mcL (4.3-11.1)
[2019-04-04 18:12] LABS: BUN/Creatinine Ratio 16 (6-26); Blood Urea Nitrogen 14 mg/dL (6-20); Calcium 10.3 mg/dL (8.6-10.3); Carbon Dioxide 30 mEq/L (23-29); Chloride 87 mEq/L (98-107); Glucose 514 mg/dL (70-105); Osmolality,Calculated 294 (280-300); Potassium 4.5 mEq/L (3.5-5.1); Sodium 130 mEq/L (136-145); eGFR For African Americans > 60 (> 60); eGFR For Non-African Americans > 60 (> 60)
[2019-04-04] MEDS ORDERED: Insulin Human Regular 10 UNIT in 0.9 % Sodium Chloride 10 ML IV ONE (18:16)
[2019-04-04] MEDS ORDERED: 0.9 % Sodium Chloride 1,000 ML IVC ONE (18:16)
[2019-04-04] MEDS ORDERED: Promethazine 25 MG in 0.9 % Sodium Chloride 50 ML IVPB ONE (18:23)
[2019-04-04] MEDS ORDERED: Insulin Regular, Human 100 UNIT/ML SQ ONE (21:01)
[2019-04-04] MEDS ORDERED: Insulin DETEMIR 100 UNIT/ML X5UNITS SQ ONE (22:30)
[2019-04-04] MEDS ORDERED: Dextrose Gel 15 GM/37.5 ML TUBE PO PRN ×2 (22:33)
[2019-04-04] MEDS ORDERED: *HR* Dextrose 50 % in Water (Syg) 50 ML SYRINGE IVP PRN (22:33)
[2019-04-04] MEDS: *HR* Promethazine 25 MG/ML VIAL IVP PRN (23:35)
[2019-04-04] MEDS: Ringers Solution, Lactated 1,000 ML IVC SCH (23:35)
[2019-04-05] MEDS: Ringers Solution, Lactated 1,000 ML IVC SCH (03:11)
[2019-04-05 05:43] LABS: VBG HCO3 32 mEq/L (21-27); VBG PCO2 60 mmHg (41-51); VBG PH 7.34 pH Units (7.32-7.42); VBG PO2 53 mmHg (25-50)
[2019-04-05 05:49] LABS: INR 1.1; Prothrombin Time 12.1 Seconds (9.4-12.1)
[2019-04-05 05:56] LABS: Basophils % 0.3 %; Eosinophils # 0.1 K/mcL (0.0-0.6); Eosinophils % 0.7 %; Hematocrit 39.8 % (37.5-50.1); Hemoglobin 14.2 g/dL (12.9-16.9); Immature Granulocytes % 0.3 % (0-4); Immature Platelets 2.6 % (1.1-6.1); Lymphocytes # 2.6 K/mcL (0.6-4.6); Lymphocytes % 22.2 %; Mean Corpuscular HGB Conc 35.7 g/dL (31.6-35.5); Mean Corpuscular Hemoglobin 32.1 pg (28.0-33.3); Mean Corpuscular Volume 89.8 fL (83.0-100.0); Mean Platelet Volume 10.1 fL (9.4-12.4); Monocytes # 0.9 K/mcL (0.0-1.3); Monocytes % 7.4 %; Neutrophils # 8.1 K/mcL (1.6-8.9); Platelet Count 251 K/mcL (140-400); Red Blood Count 4.43 M/mcL (4.19-5.50); Red Cell Distribution Width 12.4 % (11.5-14.5); Segmented Neutrophils % 69.1 %; White Blood Count 11.7 K/mcL (4.3-11.1)
[2019-04-05 06:08] LABS: Alanine Aminotransferase 16 Units/L (7-52); Albumin 3.7 g/dL (3.5-5.7); Albumin/Globulin Ratio 1.5 (1.1-2.2); Alkaline Phosphatase 79 Units/L (34-104); Aspartate Amino Transferase 9 Units/L (13-39); BUN/Creatinine Ratio 15 (6-26); Bilirubin,Indirect 0.4 mg/dL (0.0-1.0); Bilirubin,Total 0.4 mg/dL (0.3-1.0); Blood Urea Nitrogen 11 mg/dL (6-20); Calcium 8.5 mg/dL (8.6-10.3); Carbon Dioxide 29 mEq/L (23-29); Chloride 99 mEq/L (98-107); Globulin 2.4 g/dL (2.4-3.5); Glucose 297 mg/dL (70-105); Magnesium 1.6 mg/dL (1.6-2.6); Osmolality,Calculated 292 (280-300); Phosphorous 2.6 mg/dL (2.7-4.5); Potassium 3.6 mEq/L (3.5-5.1); Sodium 136 mEq/L (136-145); Total Protein 6.1 g/dL (6.4-8.9); eGFR For African Americans > 60 (> 60); eGFR For Non-African Americans > 60 (> 60)
[2019-04-05] MEDS: *HR* Heparin 5,000 UNIT/ML VIAL SQ SCH ×2 (06:09→17:52)
[2019-04-05] MEDS: Isosorbide MONOnitrate (24 HR) 30 MG TAB.ER.24H PO SCH (08:26)
[2019-04-05] MEDS: Ranolazine 500 MG TAB.ER.12H PO SCH ×2 (08:26→21:05)
[2019-04-05] MEDS: Aspirin 81 MG TAB.CHEW PO SCH (08:27)
[2019-04-05] MEDS: Metoprolol XL (24 HR) Succ 25 MG TAB.ER.24H PO SCH (08:27)
[2019-04-05] MEDS: Pregabalin 75 MG CAPSULE PO SCH (08:27)
[2019-04-05] MEDS: Insulin LISPRO 300 UNITS/3 ML VIAL SQ SCH ×4 (08:29→21:06)
[2019-04-05 11:42] LABS: Bilirubin,Urine Negative (Negative); Blood,Urine Negative (Negative); Clarity,Urine Clear (Clear); Color,Urine Yellow (Yellow); Glucose,Urine (UA) >=1000 mg/dL (Normal); Ketones,Urine Negative (Negative); Leukocyte Esterase,Urine Negative (Negative); Nitrite,Urine Negative (Negative); PH,Urine 6.5 pH Units (5.0-8.0); Protein,Urine Negative (Neg-Trace); Specific Gravity,Urine > 1.030 (1.010-1.025); Urobilinogen,Urine Normal (Normal)
[2019-04-05] MEDS: Ondansetron 4 MG/2 ML VIAL IVP PRN (11:59)
[2019-04-05] MEDS ORDERED: Isovue-370 500 ML BOTTLE IVP ONE (12:08)
[2019-04-05] MEDS: 0.9 % Sodium Chloride 1,000 ML IVC SCH (13:03)
[2019-04-05 13:42] LABS: Adenovirus Not Detected (Not Detect); Bordetella Pertussis Not Detected (Not Detect); Chlamydophila pneumoniae Not Detected (Not Detect); Coronavirus 229E Not Detected (Not Detect); Coronavirus HKU1 Not Detected (Not Detect); Coronavirus NL63 Not Detected (Not Detect); Coronavirus OC43 Not Detected (Not Detect); Human Metapneumovirus Not Detected (Not Detect); Human Rhinovirus/Enterovirus Not Detected (Not Detect); Influenza A Subtype 2009 H1 Not Detected (Not Detect); Influenza A Untypeable Not Detected (Not Detect); Influenza B Not Detected (Not Detect); Mycoplasma pneumoniae Not Detected (Not Detect); Parainfluenza Virus 1 Not Detected (Not Detect); Parainfluenza Virus 2 Not Detected (Not Detect); Parainfluenza Virus 3 Not Detected (Not Detect); Parainfluenza Virus 4 Not Detected (Not Detect); Respiratory Syncytial Virus Not Detected (Not Detect)
[2019-04-05] MEDS: *HR* Promethazine 25 MG/ML VIAL IVP PRN (21:05)
[2019-04-05] MEDS: Insulin DETEMIR 100 UNIT/ML X5UNITS SQ SCH (21:05)
[2019-04-05] MEDS: Acetaminophen 325 MG TABLET PO PRN (21:05)
[2019-04-06] MEDS: 0.9 % Sodium Chloride 1,000 ML IVC SCH ×2 (02:16→18:36)
[2019-04-06 02:53] LABS: Hematocrit 34.3 % (37.5-50.1); Mean Corpuscular HGB Conc 34.7 g/dL (31.6-35.5); Mean Corpuscular Hemoglobin 32.4 pg (28.0-33.3); Mean Corpuscular Volume 93.5 fL (83.0-100.0); Mean Platelet Volume 9.5 fL (9.4-12.4); Platelet Count 267 K/mcL (140-400); Red Blood Count 3.67 M/mcL (4.19-5.50); Red Cell Distribution Width 12.5 % (11.5-14.5); White Blood Count 8.6 K/mcL (4.3-11.1)
[2019-04-06 02:54] LABS: Hemoglobin 11.9 g/dL (12.9-16.9)
[2019-04-06 03:08] LABS: Alanine Aminotransferase 14 Units/L (7-52); Albumin 3.2 g/dL (3.5-5.7); Albumin/Globulin Ratio 1.5 (1.1-2.2); Alkaline Phosphatase 73 Units/L (34-104); Aspartate Amino Transferase 9 Units/L (13-39); BUN/Creatinine Ratio 14 (6-26); Bilirubin,Total 0.1 mg/dL (0.3-1.0); Blood Urea Nitrogen 11 mg/dL (6-20); Calcium 7.9 mg/dL (8.6-10.3); Carbon Dioxide 26 mEq/L (23-29); Chloride 101 mEq/L (98-107); Globulin 2.1 g/dL (2.4-3.5); Glucose 304 mg/dL (70-105); Osmolality,Calculated 289 (280-300); Potassium 3.5 mEq/L (3.5-5.1); Sodium 134 mEq/L (136-145); Total Protein 5.3 g/dL (6.4-8.9); eGFR For African Americans > 60 (> 60); eGFR For Non-African Americans > 60 (> 60)
[2019-04-06] MEDS: *HR* Heparin 5,000 UNIT/ML VIAL SQ SCH ×2 (05:46→17:42)
[2019-04-06] MEDS: Isosorbide MONOnitrate (24 HR) 30 MG TAB.ER.24H PO SCH (09:42)
[2019-04-06] MEDS: Metoprolol XL (24 HR) Succ 25 MG TAB.ER.24H PO SCH (09:43)
[2019-04-06] MEDS: Ranolazine 500 MG TAB.ER.12H PO SCH ×2 (09:43→20:26)
[2019-04-06] MEDS: Aspirin 81 MG TAB.CHEW PO SCH (09:43)
[2019-04-06] MEDS: Pregabalin 75 MG CAPSULE PO SCH (09:43)
[2019-04-06] MEDS: Insulin LISPRO 300 UNITS/3 ML VIAL SQ SCH ×4 (09:44→20:27)
[2019-04-06] MEDS: *HR* Promethazine 25 MG/ML VIAL IVP PRN ×3 (09:49→20:26)
[2019-04-06 09:51] LABS: Estimated Average Glucose 392 mg/dl
[2019-04-06] MEDS: Acetaminophen 325 MG TABLET PO PRN (17:41)
[2019-04-06] MEDS: Ondansetron 4 MG/2 ML VIAL IVP PRN (17:42)
[2019-04-06] MEDS: Insulin DETEMIR 100 UNIT/ML X5UNITS SQ SCH (20:26)
[2019-04-07] MEDS: Acetaminophen 325 MG TABLET PO PRN ×2 (00:52→09:42)
[2019-04-07] MEDS: *HR* Promethazine 25 MG/ML VIAL IVP PRN (00:53)
[2019-04-07 04:01] LABS: Hematocrit 34.5 % (37.5-50.1); Hemoglobin 11.6 g/dL (12.9-16.9); Mean Corpuscular HGB Conc 33.6 g/dL (31.6-35.5); Mean Corpuscular Hemoglobin 32.5 pg (28.0-33.3); Mean Corpuscular Volume 96.6 fL (83.0-100.0); Mean Platelet Volume 9.6 fL (9.4-12.4); Platelet Count 219 K/mcL (140-400); Red Blood Count 3.57 M/mcL (4.19-5.50); White Blood Count 7.9 K/mcL (4.3-11.1)
[2019-04-07 04:12] LABS: Alanine Aminotransferase 13 Units/L (7-52); Albumin 3.4 g/dL (3.5-5.7); Albumin/Globulin Ratio 1.6 (1.1-2.2); Alkaline Phosphatase 66 Units/L (34-104); Aspartate Amino Transferase 8 Units/L (13-39); BUN/Creatinine Ratio 11 (6-26); Bilirubin,Total 0.3 mg/dL (0.3-1.0); Blood Urea Nitrogen 9 mg/dL (6-20); Calcium 8.5 mg/dL (8.6-10.3); Carbon Dioxide 29 mEq/L (23-29); Chloride 103 mEq/L (98-107); Globulin 2.1 g/dL (2.4-3.5); Glucose 155 mg/dL (70-105); Osmolality,Calculated 288 (280-300); Potassium 3.9 mEq/L (3.5-5.1); Sodium 138 mEq/L (136-145); Total Protein 5.5 g/dL (6.4-8.9); eGFR For African Americans > 60 (> 60); eGFR For Non-African Americans > 60 (> 60)
[2019-04-07] MEDS: *HR* Heparin 5,000 UNIT/ML VIAL SQ SCH (05:31)
[2019-04-07] MEDS: 0.9 % Sodium Chloride 1,000 ML IVC SCH (05:31)
[2019-04-07 08:41] LABS: Magnesium 1.5 mg/dL (1.6-2.6); Phosphorous 3.6 mg/dL (2.7-4.5)
[2019-04-07] MEDS ORDERED: Ondansetron ODT 4 MG TAB.RAPDIS SL PRN (09:08)
[2019-04-07] MEDS: Ranolazine 500 MG TAB.ER.12H PO SCH (09:41)
[2019-04-07] MEDS: Insulin LISPRO 300 UNITS/3 ML VIAL SQ SCH (09:41)
[2019-04-07] MEDS: Metoprolol XL (24 HR) Succ 25 MG TAB.ER.24H PO SCH (09:42)
[2019-04-07] MEDS: Isosorbide MONOnitrate (24 HR) 30 MG TAB.ER.24H PO SCH (09:42)
[2019-04-07] MEDS: Aspirin 81 MG TAB.CHEW PO SCH (09:42)
[2019-04-07] MEDS: Pregabalin 75 MG CAPSULE PO SCH (09:42)
[2019-04-07 10:53] VITALS: BP 97/59
== END 2019-04-07 12:41 | disposition home or self-care (01) ==
LOC: EMEROOARM 17:01 → 3BNU 17:01 → SUATTDRO 22:36 → 3BNU 23:05
PROVIDERS: ADMIT Internal Medicine; ATTEND Internal Medicine

== ENCOUNTER 2019-08-15 18:00 | Observation (INO) ==
[2019-08-15] MEDS ORDERED: Isovue-370 500 ML BOTTLE IVP ONE (19:16)
[2019-08-15] MEDS ORDERED: 0.9 % Sodium Chloride 1,000 ML IVC ONE (19:24)
[2019-08-15 19:30] LABS: VBG HCO3 27 mEq/L (21-27); VBG PCO2 50 mmHg (41-51); VBG PH 7.35 pH Units (7.32-7.42); VBG PO2 40 mmHg (25-50)
[2019-08-15 19:36] LABS: Basophils # 0.1 K/mcL (0.0-0.2); Basophils % 0.5 %; Eosinophils # 0.1 K/mcL (0.0-0.6); Eosinophils % 0.7 %; Hematocrit 43.6 % (37.5-50.1); Hemoglobin 14.8 g/dL (12.9-16.9); Immature Granulocytes % 0.3 % (0-4); Lymphocytes # 2.3 K/mcL (0.6-4.6); Lymphocytes % 18.9 %; Mean Corpuscular HGB Conc 33.9 g/dL (31.6-35.5); Mean Corpuscular Hemoglobin 32.5 pg (28.0-33.3); Mean Corpuscular Volume 95.8 fL (83.0-100.0); Mean Platelet Volume 9.8 fL (9.4-12.4); Monocytes # 0.8 K/mcL (0.0-1.3); Monocytes % 6.6 %; Neutrophils # 8.7 K/mcL (1.6-8.9); Platelet Count 269 K/mcL (140-400); Red Blood Count 4.55 M/mcL (4.19-5.50); Red Cell Distribution Width 12.3 % (11.5-14.5); White Blood Count 11.9 K/mcL (4.3-11.1)
[2019-08-15 19:37] LABS: INR 0.9; Prothrombin Time 10.6 Seconds (9.4-12.1)
[2019-08-15 19:58] LABS: Alanine Aminotransferase 11 Units/L (7-52); Albumin 4.5 g/dL (3.5-5.7); Albumin/Globulin Ratio 1.4 (1.1-2.2); Alkaline Phosphatase 120 Units/L (34-104); Aspartate Amino Transferase 12 Units/L (13-39); BUN/Creatinine Ratio 12 (6-26); Bilirubin,Total 0.4 mg/dL (0.3-1.0); Blood Urea Nitrogen 11 mg/dL (6-20); Calcium 9.5 mg/dL (8.6-10.3); Carbon Dioxide 23 mEq/L (23-29); Chloride 93 mEq/L (98-107); Globulin 3.3 g/dL (2.4-3.5); Glucose 528 mg/dL (70-105); Osmolality,Calculated 291 (280-300); Potassium 3.9 mEq/L (3.5-5.1); Sodium 129 mEq/L (136-145); Total Protein 7.8 g/dL (6.4-8.9); eGFR For African Americans > 60 (> 60); eGFR For Non-African Americans > 60 (> 60)
[2019-08-15] MEDS ORDERED: Insulin Human Regular 10 UNIT in 0.9 % Sodium Chloride 10 ML IV STA (20:02)
[2019-08-15] MEDS ORDERED: Ketorolac 30 MG/ML VIAL IVP ONE (20:03)
[2019-08-15 20:15] LABS: Hepatitis B Surface Antigen Nonreactive (Nonreactive)
[2019-08-15 20:44] LABS: Hepatitis B Core IgM Nonreactive (Nonreactive); Hepatitis C Virus Antibody Nonreactive (Nonreactive)
[2019-08-15 20:46] LABS: Hepatitis A Antibody IgM Nonreactive (Nonreactive)
[2019-08-15] MEDS ORDERED: Naloxone 0.4 MG/ML INJ IVP PRN (21:37)
[2019-08-15] MEDS ORDERED: Ondansetron 4 MG/2 ML VIAL IVP PRN (21:37)
[2019-08-15] MEDS ORDERED: Dextrose Gel 15 GM/37.5 ML TUBE PO PRN ×2 (21:38)
[2019-08-15] MEDS ORDERED: D5% in Water 1,000 ML IVC PRN (21:38)
[2019-08-15] MEDS ORDERED: *HR* Dextrose 50 % in Water (Syg) 50 ML SYRINGE IVP PRN (21:38)
[2019-08-15] MEDS ORDERED: Insulin LISPRO 300 UNITS/3 ML VIAL SQ SCH (21:45)
[2019-08-15] MEDS: *HR* Heparin 5,000 UNIT/ML VIAL SQ SCH (22:59)
[2019-08-15] MEDS: 0.9 % Sodium Chloride 1,000 ML IVC SCH (23:00)
[2019-08-16 01:39] LABS: Basophils % 0.4 %; Eosinophils # 0.1 K/mcL (0.0-0.6); Eosinophils % 1.1 %; Hematocrit 37.1 % (37.5-50.1); Immature Granulocytes % 0.3 % (0-4); Lymphocytes # 2.6 K/mcL (0.6-4.6); Lymphocytes % 28.3 %; Mean Corpuscular HGB Conc 34.2 g/dL (31.6-35.5); Mean Corpuscular Hemoglobin 31.8 pg (28.0-33.3); Mean Corpuscular Volume 92.8 fL (83.0-100.0); Mean Platelet Volume 9.8 fL (9.4-12.4); Monocytes # 0.6 K/mcL (0.0-1.3); Monocytes % 6.2 %; Neutrophils # 5.8 K/mcL (1.6-8.9); Platelet Count 240 K/mcL (140-400); Red Cell Distribution Width 12.4 % (11.5-14.5); Segmented Neutrophils % 63.7 %; White Blood Count 9.1 K/mcL (4.3-11.1)
[2019-08-16 01:40] LABS: Hemoglobin 12.7 g/dL (12.9-16.9)
[2019-08-16 02:00] LABS: BUN/Creatinine Ratio 13 (6-26); Blood Urea Nitrogen 10 mg/dL (6-20); Calcium 8.4 mg/dL (8.6-10.3); Carbon Dioxide 25 mEq/L (23-29); Chloride 101 mEq/L (98-107); Glucose 359 mg/dL (70-105); Osmolality,Calculated 292 (280-300); Potassium 3.5 mEq/L (3.5-5.1); Sodium 134 mEq/L (136-145); eGFR For African Americans > 60 (> 60); eGFR For Non-African Americans > 60 (> 60)
[2019-08-16] MEDS: *HR* Heparin 5,000 UNIT/ML VIAL SQ SCH ×2 (05:39→12:31)
[2019-08-16] MEDS ORDERED: Isosorbide MONOnitrate (24 HR) 30 MG TAB.ER.24H PO SCH (09:00)
[2019-08-16] MEDS ORDERED: Furosemide 40 MG TABLET PO SCH (09:00)
[2019-08-16] MEDS ORDERED: Ranolazine 500 MG TAB.ER.12H PO SCH (09:00)
[2019-08-16] MEDS ORDERED: Pregabalin 75 MG CAPSULE PO SCH (09:00)
[2019-08-16] MEDS ORDERED: Metoprolol XL (24 HR) Succ 25 MG TAB.ER.24H PO SCH (09:00)
[2019-08-16] MEDS ORDERED: Aspirin 81 MG TAB.CHEW PO SCH (09:00)
[2019-08-16] MEDS: 0.9 % Sodium Chloride 1,000 ML IVC SCH (10:06)
[2019-08-16] MEDS: Insulin LISPRO 300 UNITS/3 ML VIAL SQ SCH ×2 (10:39→11:39)
[2019-08-16 11:30] VITALS: BP 98/63
== END 2019-08-16 15:06 | disposition home or self-care (01) ==
LOC: 3BNU 18:00 → EMEROOARM 18:00 → SUATTDRO 21:44 → 3BNU 22:32
PROVIDERS: ADMIT Internal Medicine; ATTEND Family Medicine

== ENCOUNTER 2019-08-27 17:43 | Observation (INO) ==
[2019-08-27] MEDS ORDERED: 0.9 % Sodium Chloride 1,000 ML IVC ONE ×3 (17:55→23:18)
[2019-08-27] MEDS ORDERED: Ondansetron 4 MG/2 ML VIAL IVP ONE (17:55)
[2019-08-27] MEDS ORDERED: *HR* HYDROmorphone (PF) 1 MG/ML SYRINGE IVP ONE (17:55)
[2019-08-27 18:17] LABS: Bilirubin,Urine Negative (Negative); Blood,Urine Negative (Negative); Clarity,Urine Clear (Clear); Color,Urine Yellow (Yellow); Glucose,Urine (UA) >=1000 mg/dL (Normal); Ketones,Urine Negative (Negative); Leukocyte Esterase,Urine Negative (Negative); Nitrite,Urine Negative (Negative); Protein,Urine Negative (Neg-Trace); Specific Gravity,Urine > 1.030 (1.010-1.025); Urobilinogen,Urine Normal (Normal)
[2019-08-27 18:18] LABS: Basophils % 0.3 %; Eosinophils % 0.2 %; Hematocrit 44.5 % (37.5-50.1); Hemoglobin 15.3 g/dL (12.9-16.9); Immature Granulocytes % 0.3 % (0-4); Lymphocytes # 0.8 K/mcL (0.6-4.6); Lymphocytes % 7.1 %; Mean Corpuscular HGB Conc 34.4 g/dL (31.6-35.5); Mean Corpuscular Hemoglobin 32.7 pg (28.0-33.3); Mean Corpuscular Volume 95.1 fL (83.0-100.0); Mean Platelet Volume 9.3 fL (9.4-12.4); Monocytes # 0.6 K/mcL (0.0-1.3); Monocytes % 5.4 %; Neutrophils # 10.1 K/mcL (1.6-8.9); Platelet Count 245 K/mcL (140-400); Red Blood Count 4.68 M/mcL (4.19-5.50); Red Cell Distribution Width 12.2 % (11.5-14.5); Segmented Neutrophils % 86.7 %; White Blood Count 11.6 K/mcL (4.3-11.1)
[2019-08-27 18:18] LABS: VBG HCO3 26 mEq/L (21-27); VBG PCO2 45 mmHg (41-51); VBG PH 7.36 pH Units (7.32-7.42); VBG PO2 47 mmHg (25-50)
[2019-08-27 18:42] LABS: Alanine Aminotransferase 14 Units/L (7-52); Albumin 4.9 g/dL (3.5-5.7); Albumin/Globulin Ratio 1.8 (1.1-2.2); Alkaline Phosphatase 126 Units/L (34-104); Aspartate Amino Transferase 8 Units/L (13-39); BUN/Creatinine Ratio 10 (6-26); Bilirubin,Direct 0.1 mg/dL (0.0-0.2); Bilirubin,Indirect 0.3 mg/dL (0.0-1.0); Bilirubin,Total 0.4 mg/dL (0.3-1.0); Blood Urea Nitrogen 8 mg/dL (6-20); Calcium 9.6 mg/dL (8.6-10.3); Carbon Dioxide 24 mEq/L (23-29); Chloride 90 mEq/L (98-107); Globulin 2.8 g/dL (2.4-3.5); Glucose 476 mg/dL (70-105); Lipase 30 Units/L (11-82); Osmolality,Calculated 287 (280-300); Potassium 3.3 mEq/L (3.5-5.1); Sodium 129 mEq/L (136-145); Total Protein 7.7 g/dL (6.4-8.9); Troponin I < 0.03 ng/mL (< 0.04); eGFR For African Americans > 60 (> 60); eGFR For Non-African Americans > 60 (> 60)
[2019-08-27] MEDS ORDERED: Insulin Regular, Human 100 UNIT/ML SQ ONE (19:06)
[2019-08-27] MEDS ORDERED: *HR* HYDROmorphone (PF) 1 MG/ML SYRINGE IVP STA (19:12)
[2019-08-27] MEDS ORDERED: Hyoscyamine SL 0.125 MG TAB.SUBL SL ONE (19:12)
[2019-08-27] MEDS ORDERED: Naloxone 0.4 MG/ML INJ IVP PRN (22:21)
[2019-08-27] MEDS ORDERED: Insulin Human Regular 10 UNIT in 0.9 % Sodium Chloride 10 ML IV ONE (22:34)
[2019-08-27] MEDS ORDERED: Ketorolac 30 MG/ML VIAL IVP PRN (22:51)
[2019-08-27] MEDS ORDERED: Dextrose Gel 15 GM/37.5 ML TUBE PO PRN ×2 (23:17)
[2019-08-27] MEDS ORDERED: D5% in Water 1,000 ML IVC PRN (23:17)
[2019-08-27] MEDS ORDERED: *HR* Dextrose 50 % in Water (Syg) 50 ML SYRINGE IVP PRN (23:17)
[2019-08-27] MEDS ORDERED: 0.9 % Sodium Chloride 1,000 ML ONE (23:22)
[2019-08-27] MEDS ORDERED: Potassium Chloride 40 MEQ, Lidocaine 1% 2 ML in 0.9 % Sodium Chloride 500 ML IVPB ONE (23:39)
[2019-08-28] MEDS ORDERED: Acetaminophen 325 MG TABLET PO PRN ×3 (00:41→08:05)
[2019-08-28] MEDS ORDERED: Nicotine 21 MG PATCH.TD24 TD SCH (00:45)
[2019-08-28 01:35] LABS: Hematocrit 35.5 % (37.5-50.1); Mean Corpuscular HGB Conc 34.1 g/dL (31.6-35.5); Mean Corpuscular Hemoglobin 31.6 pg (28.0-33.3); Mean Corpuscular Volume 92.7 fL (83.0-100.0); Mean Platelet Volume 9.4 fL (9.4-12.4); Platelet Count 216 K/mcL (140-400); Red Blood Count 3.83 M/mcL (4.19-5.50); Red Cell Distribution Width 12.4 % (11.5-14.5); White Blood Count 7.6 K/mcL (4.3-11.1)
[2019-08-28 01:36] LABS: Hemoglobin 12.1 g/dL (12.9-16.9)
[2019-08-28] MEDS ORDERED: 0.9 % Sodium Chloride 1,000 ML IVC ONE (01:51)
[2019-08-28 01:53] LABS: BUN/Creatinine Ratio 10 (6-26); Blood Urea Nitrogen 7 mg/dL (6-20); Calcium 8.2 mg/dL (8.6-10.3); Carbon Dioxide 24 mEq/L (23-29); Chloride 102 mEq/L (98-107); Glucose 185 mg/dL (70-105); Magnesium 1.3 mg/dL (1.6-2.6); Osmolality,Calculated 281 (280-300); Potassium 3.2 mEq/L (3.5-5.1); Sodium 134 mEq/L (136-145); eGFR For African Americans > 60 (> 60); eGFR For Non-African Americans > 60 (> 60)
[2019-08-28] MEDS ORDERED: Isovue-370 500 ML BOTTLE IVP ONE ×5 (02:17→08:05)
[2019-08-28] MEDS ORDERED: 0.9 % Sodium Chloride 1,000 ML ONE (02:32)
[2019-08-28] MEDS ORDERED: Naloxone 0.4 MG/ML INJ IVP PRN ×2 (03:17→08:05)
[2019-08-28] MEDS ORDERED: Ketorolac 30 MG/ML VIAL IVP PRN (03:17)
[2019-08-28] MEDS ORDERED: *HR* Dextrose 50 % in Water (Syg) 50 ML SYRINGE IVP PRN ×2 (03:17→08:05)
[2019-08-28] MEDS ORDERED: Dextrose Gel 15 GM/37.5 ML TUBE PO PRN ×4 (03:17→08:05)
[2019-08-28] MEDS ORDERED: D5% in Water 1,000 ML IVC PRN ×2 (03:17→08:05)
[2019-08-28] MEDS ORDERED: Insulin LISPRO 300 UNITS/3 ML VIAL SQ SCH ×3 (06:00→12:00)
[2019-08-28] MEDS ORDERED: Insulin DETEMIR 100 UNIT/ML X5UNITS SQ ONE (08:23)
[2019-08-28] MEDS: Ketorolac 30 MG/ML VIAL IVP PRN ×3 (10:32→22:47)
[2019-08-28] MEDS ORDERED: *HR* HYDROcodone/Acet 5/325 mg TABLET PO ONE (11:18)
[2019-08-28] MEDS: Insulin LISPRO 300 UNITS/3 ML VIAL SQ SCH ×2 (12:12→16:55)
[2019-08-28] MEDS: *HR* Heparin 5,000 UNIT/ML VIAL SQ SCH (16:46)
[2019-08-28] MEDS ORDERED: SODIUM CHLORIDE/NAHCO3/KCL/PEG 4,000 ML SOLN.RECON PO ONE (17:00)
[2019-08-28] MEDS ORDERED: *HR* Heparin 5,000 UNIT/ML VIAL SQ SCH (18:00)
[2019-08-29] MEDS: Insulin LISPRO 300 UNITS/3 ML VIAL SQ SCH ×4 (00:20→17:31)
[2019-08-29] MEDS ORDERED: Nicotine 21 MG PATCH.TD24 TD SCH ×2 (00:45)
[2019-08-29] MEDS: *HR* Heparin 5,000 UNIT/ML VIAL SQ SCH ×2 (05:27→17:33)
[2019-08-29] MEDS ORDERED: Lidocaine -MPF 2% 2 ML VIAL ONE (06:20)
[2019-08-29 10:14] LABS: Basophils % 0.4 %; Eosinophils % 0.5 %; Hematocrit 34.3 % (37.5-50.1); Hemoglobin 11.5 g/dL (12.9-16.9); Immature Granulocytes % 0.3 % (0-4); Lymphocytes # 1.3 K/mcL (0.6-4.6); Mean Corpuscular HGB Conc 33.5 g/dL (31.6-35.5); Mean Corpuscular Hemoglobin 32.2 pg (28.0-33.3); Mean Corpuscular Volume 96.1 fL (83.0-100.0); Mean Platelet Volume 9.2 fL (9.4-12.4); Monocytes # 0.7 K/mcL (0.0-1.3); Monocytes % 9.1 %; Neutrophils # 5.3 K/mcL (1.6-8.9); Platelet Count 195 K/mcL (140-400); Red Blood Count 3.57 M/mcL (4.19-5.50); Red Cell Distribution Width 12.5 % (11.5-14.5); Segmented Neutrophils % 71.7 %; White Blood Count 7.3 K/mcL (4.3-11.1)
[2019-08-29 10:31] LABS: BUN/Creatinine Ratio 8 (6-26); Blood Urea Nitrogen 5 mg/dL (6-20); Calcium 8.3 mg/dL (8.6-10.3); Carbon Dioxide 25 mEq/L (23-29); Chloride 103 mEq/L (98-107); Glucose 211 mg/dL (70-105); Magnesium 1.5 mg/dL (1.6-2.6); Osmolality,Calculated 280 (280-300); Potassium 3.7 mEq/L (3.5-5.1); Sodium 133 mEq/L (136-145); eGFR For African Americans > 60 (> 60); eGFR For Non-African Americans > 60 (> 60)
[2019-08-29] MEDS: Ketorolac 30 MG/ML VIAL IVP PRN ×2 (11:01→19:08)
[2019-08-29] MEDS: Pregabalin 75 MG CAPSULE PO SCH (14:02)
[2019-08-29] MEDS: Furosemide 20 MG TABLET PO SCH (14:03)
[2019-08-29] MEDS: Nicotine 21 MG PATCH.TD24 TD SCH (15:16)
[2019-08-29] MEDS: Ranolazine 500 MG TAB.ER.12H PO SCH (20:22)
[2019-08-29] MEDS: Budesonide/Formoterol 160/4.5 1 PUFF INH IH SCH (20:37)
[2019-08-29] MEDS ORDERED: Insulin DETEMIR 100 UNIT/ML X5UNITS SQ SCH (21:00)
[2019-08-29] MEDS ORDERED: Insulin LISPRO 300 UNITS/3 ML VIAL SQ SCH (21:00)
[2019-08-30 01:46] LABS: Basophils % 0.3 %; Eosinophils # 0.1 K/mcL (0.0-0.6); Eosinophils % 0.8 %; Hematocrit 37.5 % (37.5-50.1); Hemoglobin 12.5 g/dL (12.9-16.9); Immature Granulocytes % 0.3 % (0-4); Lymphocytes # 1.6 K/mcL (0.6-4.6); Lymphocytes % 26.8 %; Mean Corpuscular HGB Conc 33.3 g/dL (31.6-35.5); Mean Corpuscular Hemoglobin 31.8 pg (28.0-33.3); Mean Corpuscular Volume 95.4 fL (83.0-100.0); Mean Platelet Volume 9.4 fL (9.4-12.4); Monocytes # 0.8 K/mcL (0.0-1.3); Monocytes % 13.1 %; Neutrophils # 3.5 K/mcL (1.6-8.9); Platelet Count 209 K/mcL (140-400); Red Blood Count 3.93 M/mcL (4.19-5.50); Red Cell Distribution Width 12.3 % (11.5-14.5); Segmented Neutrophils % 58.7 %; White Blood Count 5.9 K/mcL (4.3-11.1)
[2019-08-30 02:07] LABS: BUN/Creatinine Ratio 11 (6-26); Blood Urea Nitrogen 9 mg/dL (6-20); Calcium 8.8 mg/dL (8.6-10.3); Carbon Dioxide 25 mEq/L (23-29); Chloride 102 mEq/L (98-107); Glucose 245 mg/dL (70-105); Osmolality,Calculated 289 (280-300); Potassium 3.8 mEq/L (3.5-5.1); Sodium 136 mEq/L (136-145); eGFR For African Americans > 60 (> 60); eGFR For Non-African Americans > 60 (> 60)
[2019-08-30] MEDS ORDERED: Ondansetron ODT 4 MG TAB.RAPDIS SL PRN (03:10)
[2019-08-30] MEDS: Ketorolac 30 MG/ML VIAL IVP PRN (03:49)
[2019-08-30] MEDS: *HR* Heparin 5,000 UNIT/ML VIAL SQ SCH (04:59)
[2019-08-30] MEDS: Budesonide/Formoterol 160/4.5 1 PUFF INH IH SCH (07:30)
[2019-08-30] MEDS: Furosemide 20 MG TABLET PO SCH (08:19)
[2019-08-30] MEDS: Ranolazine 500 MG TAB.ER.12H PO SCH (08:19)
[2019-08-30] MEDS: Pregabalin 75 MG CAPSULE PO SCH (08:20)
[2019-08-30] MEDS: Nicotine 21 MG PATCH.TD24 TD SCH (08:23)
[2019-08-30] MEDS: Insulin LISPRO 300 UNITS/3 ML VIAL SQ SCH (08:29)
[2019-08-30] MEDS ORDERED: Metoprolol XL (24 HR) Succ 25 MG TAB.ER.24H PO SCH (09:00)
[2019-08-30] MEDS ORDERED: Aspirin 81 MG TAB.CHEW PO SCH (09:00)
[2019-08-30 10:09] VITALS: BP 92/60
== END 2019-08-30 11:31 | disposition home or self-care (01) ==
LOC: EMEROOARM 17:43 → 2ANU 17:43 → SUATTDRO 19:57 → 2ANU 20:28 → ICNU 08-28 02:48 → 3ANU 08-28 11:11
PROVIDERS: ADMIT Family Medicine; ATTEND Internal Medicine

== ENCOUNTER 2020-06-29 12:48 | Observation (INO) ==
[2020-06-29] MEDS ORDERED: Isovue-370 500 ML BOTTLE IVP ONE (13:29)
[2020-06-29 13:56] LABS: Basophils # 0.1 K/mcL (0.0-0.2); Basophils % 0.3 %; Eosinophils % 0.2 %; Hemoglobin 15.2 g/dL (12.9-16.9); Immature Granulocytes % 0.5 % (0-4); Lymphocytes # 1.4 K/mcL (0.6-4.6); Lymphocytes % 7.8 %; Mean Corpuscular HGB Conc 33.8 g/dL (31.6-35.5); Mean Corpuscular Hemoglobin 32.3 pg (28.0-33.3); Mean Corpuscular Volume 95.5 fL (83.0-100.0); Mean Platelet Volume 9.9 fL (9.4-12.4); Monocytes # 0.9 K/mcL (0.0-1.3); Monocytes % 5.2 %; Platelet Count 253 K/mcL (140-400); Red Blood Count 4.71 M/mcL (4.19-5.50); Red Cell Distribution Width 12.4 % (11.5-14.5); White Blood Count 17.5 K/mcL (4.3-11.1)
[2020-06-29 14:01] LABS: INR 0.9; Prothrombin Time 10.6 Seconds (9.4-12.1)
[2020-06-29 14:03] LABS: Activated Partial Thrombo Time 27.7 Seconds (26.0-36.0)
[2020-06-29 14:22] LABS: Alanine Aminotransferase 8 Units/L (7-52); Albumin 4.4 g/dL (3.5-5.7); Albumin/Globulin Ratio 1.6 (1.1-2.2); Alkaline Phosphatase 100 Units/L (34-104); Aspartate Amino Transferase 6 Units/L (13-39); BUN/Creatinine Ratio 11 (6-26); Bilirubin,Indirect 0.4 mg/dL (0.0-1.0); Bilirubin,Total 0.4 mg/dL (0.3-1.0); Blood Urea Nitrogen 10 mg/dL (6-20); C-Reactive Protein 6 mg/L (Less than 10); Calcium 9.7 mg/dL (8.6-10.3); Carbon Dioxide 27 mEq/L (23-29); Chloride 88 mEq/L (98-107); Globulin 2.8 g/dL (2.4-3.5); Glucose 599 mg/dL (70-105); Lactate Dehydrogenase 100 Units/L (140-271); Magnesium 1.5 mg/dL (1.6-2.6); Osmolality,Calculated 299 (280-300); Phosphorous 5.1 mg/dL (2.7-4.5); Potassium 3.6 mEq/L (3.5-5.1); Sodium 131 mEq/L (136-145); Total Protein 7.2 g/dL (6.4-8.9); Troponin I < 0.03 ng/mL (< 0.04); eGFR For African Americans > 60 (> 60); eGFR For Non-African Americans > 60 (> 60)
[2020-06-29 14:33] LABS: Ferritin 142 ng/mL (20-250)
[2020-06-29] MEDS ORDERED: Insulin Human Regular 10 UNIT in 0.9 % Sodium Chloride 10 ML IV ONE (14:33)
[2020-06-29 15:02] LABS: VBG HCO3 29 mEq/L (21-27); VBG PCO2 49 mmHg (41-51); VBG PH 7.38 pH Units (7.32-7.42); VBG PO2 63 mmHg (25-50)
[2020-06-29 15:40] LABS: Adenovirus Not Detected (Not Detect); Bordetella Pertussis Not Detected (Not Detect); Chlamydophila pneumoniae Not Detected (Not Detect); Coronavirus 229E Not Detected (Not Detect); Coronavirus HKU1 Not Detected (Not Detect); Coronavirus NL63 Not Detected (Not Detect); Coronavirus OC43 Not Detected (Not Detect); Human Metapneumovirus Not Detected (Not Detect); Human Rhinovirus/Enterovirus Not Detected (Not Detect); Influenza A Subtype 2009 H1 Not Detected (Not Detect); Influenza B Not Detected (Not Detect); Mycoplasma pneumoniae Not Detected (Not Detect); Parainfluenza Virus 1 Not Detected (Not Detect); Parainfluenza Virus 2 Not Detected (Not Detect); Parainfluenza Virus 3 Not Detected (Not Detect); Parainfluenza Virus 4 Not Detected (Not Detect); Respiratory Syncytial Virus Not Detected (Not Detect); SARS-CoV-2 Not Detected (Not Detect)
[2020-06-29] MEDS ORDERED: levoFLOXacin 750 MG/150 ML 750 MG/150 ML BAG IVPB ONE (16:24)
[2020-06-29] MEDS ORDERED: Vancomycin 1,500 MG/265 ML IV.SOLN IVPB ONE (16:24)
[2020-06-29] MEDS ORDERED: Piperacillin/Tazobactam 3.375 GM in Water for inj. (sterile) 20 ML IVP ONE (16:24)
[2020-06-29] MEDS ORDERED: 0.9 % Sodium Chloride 1,000 ML IVC ONE (16:35)
[2020-06-29] MEDS ORDERED: Naloxone 0.4 MG/ML INJ IVP PRN (16:45)
[2020-06-29] MEDS ORDERED: Insulin Human Regular 100 UNIT in 0.9 % Sodium Chloride 100 ML IVC SCH ×2 (16:45→17:00)
[2020-06-29] MEDS ORDERED: Ondansetron 4 MG/2 ML VIAL IVP PRN (16:45)
[2020-06-29] MEDS ORDERED: Insulin Regular, Human 100 UNIT/ML IV PRN (16:48)
[2020-06-29] MEDS ORDERED: D5% in 0.45% NACL 1,000 ML IVC PRN (16:48)
[2020-06-29] MEDS ORDERED: *HR* Dextrose 50 % in Water (Vial) 50 ML VIAL IVP PRN ×2 (16:48→21:24)
[2020-06-29] MEDS ORDERED: 0.9 % Sodium Chloride 1,000 ML IVC SCH (17:00)
[2020-06-29] MEDS ORDERED: 0.9 % Sodium Chloride w KCl 20 MEQ/1,000 ML MLS IVC SCH (17:00)
[2020-06-29 18:32] LABS: Lipase 19 Units/L (11-82)
[2020-06-29 18:45] LABS: Estimated Average Glucose 364 mg/dl; Hemoglobin A1C 14.3 %
[2020-06-29] MEDS: Ipratropium/Albuterol Neb 3 ML IH SCH ×2 (20:04→23:23)
[2020-06-29] MEDS: Budesonide/Formoterol 160/4.5 1 PUFF INH IH SCH (20:04)
[2020-06-29] MEDS ORDERED: D5% in 0.45% NACL w KCl 20 MEQ/1,000 ML MLS IVC PRN (20:38)
[2020-06-29 20:41] LABS: BUN/Creatinine Ratio 14 (6-26); Blood Urea Nitrogen 9 mg/dL (6-20); Calcium 8.1 mg/dL (8.6-10.3); Carbon Dioxide 28 mEq/L (23-29); Chloride 103 mEq/L (98-107); Glucose 201 mg/dL (70-105); Osmolality,Calculated 288 (280-300); Potassium 3.7 mEq/L (3.5-5.1); Sodium 137 mEq/L (136-145); eGFR For African Americans > 60 (> 60); eGFR For Non-African Americans > 60 (> 60)
[2020-06-29] MEDS ORDERED: Pregabalin 50 MG CAPSULE PO ONE (20:52)
[2020-06-29] MEDS ORDERED: Insulin DETEMIR 100 UNIT/ML X5UNITS SUBQ ONE (21:22)
[2020-06-29] MEDS ORDERED: Dextrose Gel 15 GM/37.5 ML TUBE PO PRN ×2 (21:24)
[2020-06-29] MEDS ORDERED: D5% in Water 1,000 ML IVC PRN (21:24)
[2020-06-30] MEDS: Insulin LISPRO 300 UNITS/3 ML VIAL SUBQ SCH ×7 (01:35→21:14)
[2020-06-30 01:36] LABS: Basophils % 0.3 %; Eosinophils # 0.1 K/mcL (0.0-0.6); Hematocrit 37.4 % (37.5-50.1); Hemoglobin 12.5 g/dL (12.9-16.9); Immature Granulocytes % 0.3 % (0-4); Lymphocytes # 2.9 K/mcL (0.6-4.6); Lymphocytes % 28.7 %; Mean Corpuscular HGB Conc 33.4 g/dL (31.6-35.5); Mean Corpuscular Volume 92.8 fL (83.0-100.0); Mean Platelet Volume 9.5 fL (9.4-12.4); Monocytes # 0.6 K/mcL (0.0-1.3); Monocytes % 5.7 %; Neutrophils # 6.4 K/mcL (1.6-8.9); Platelet Count 221 K/mcL (140-400); Red Blood Count 4.03 M/mcL (4.19-5.50); Red Cell Distribution Width 12.8 % (11.5-14.5)
[2020-06-30 02:00] LABS: BUN/Creatinine Ratio 17 (6-26); Blood Urea Nitrogen 11 mg/dL (6-20); Calcium 8.3 mg/dL (8.6-10.3); Carbon Dioxide 26 mEq/L (23-29); Chloride 103 mEq/L (98-107); Glucose 146 mg/dL (70-105); Magnesium 1.8 mg/dL (1.6-2.6); Osmolality,Calculated 286 (280-300); Phosphorous 3.1 mg/dL (2.7-4.5); Potassium 3.4 mEq/L (3.5-5.1); Sodium 137 mEq/L (136-145); eGFR For African Americans > 60 (> 60); eGFR For Non-African Americans > 60 (> 60)
[2020-06-30] MEDS: Ringers Solution, Lactated 1,000 ML IVC SCH ×3 (02:01→21:15)
[2020-06-30] MEDS: Ipratropium/Albuterol Neb 3 ML IH SCH ×6 (04:27→23:59)
[2020-06-30] MEDS: Budesonide/Formoterol 160/4.5 1 PUFF INH IH SCH ×2 (07:46→20:36)
[2020-06-30] MEDS: Aspirin 81 MG TAB.CHEW PO SCH (07:47)
[2020-06-30] MEDS ORDERED: levoFLOXacin 750 MG/150 ML 750 MG/150 ML BAG IVPB SCH (09:00)
[2020-06-30] MEDS ORDERED: Pregabalin 75 MG CAPSULE PO SCH (09:00)
[2020-06-30] MEDS ORDERED: Metoprolol XL (24 HR) Succ 25 MG TAB.ER.24H PO SCH (09:00)
[2020-06-30] MEDS ORDERED: Insulin DETEMIR 100 UNIT/ML X5UNITS SUBQ SCH (21:00)
[2020-06-30] MEDS: *HR* Heparin 5,000 UNIT/ML VIAL SQ SCH (21:15)
[2020-06-30] MEDS: Pregabalin 50 MG CAPSULE PO SCH (21:55)
[2020-07-01 01:14] LABS: Hematocrit 37.1 % (37.5-50.1); Hemoglobin 12.3 g/dL (12.9-16.9); Mean Corpuscular HGB Conc 33.2 g/dL (31.6-35.5); Mean Corpuscular Hemoglobin 31.5 pg (28.0-33.3); Mean Corpuscular Volume 94.9 fL (83.0-100.0); Mean Platelet Volume 9.7 fL (9.4-12.4); Platelet Count 218 K/mcL (140-400); Red Blood Count 3.91 M/mcL (4.19-5.50); Red Cell Distribution Width 12.8 % (11.5-14.5); White Blood Count 9.1 K/mcL (4.3-11.1)
[2020-07-01 01:35] LABS: BUN/Creatinine Ratio 16 (6-26); Blood Urea Nitrogen 12 mg/dL (6-20); Calcium 8.4 mg/dL (8.6-10.3); Carbon Dioxide 27 mEq/L (23-29); Chloride 99 mEq/L (98-107); Glucose 322 mg/dL (70-105); Osmolality,Calculated 288 (280-300); Potassium 4.1 mEq/L (3.5-5.1); Sodium 133 mEq/L (136-145); eGFR For African Americans > 60 (> 60); eGFR For Non-African Americans > 60 (> 60)
[2020-07-01] MEDS: Ringers Solution, Lactated 1,000 ML IVC SCH (04:21)
[2020-07-01] MEDS: *HR* Heparin 5,000 UNIT/ML VIAL SQ SCH (04:22)
[2020-07-01] MEDS: Ipratropium/Albuterol Neb 3 ML IH SCH ×2 (04:28→07:51)
[2020-07-01 07:01] VITALS: BP 111/78
[2020-07-01] MEDS: Budesonide/Formoterol 160/4.5 1 PUFF INH IH SCH (07:51)
[2020-07-01] MEDS: Pregabalin 50 MG CAPSULE PO SCH (08:43)
[2020-07-01] MEDS: Aspirin 81 MG TAB.CHEW PO SCH (08:44)
[2020-07-01] MEDS: Insulin LISPRO 300 UNITS/3 ML VIAL SUBQ SCH (08:45)
== END 2020-07-01 11:10 | disposition home or self-care (01) ==
LOC: EMEROOARM 12:48 → 3ANU 12:48 → 2NNU 18:07
PROVIDERS: ADMIT Student in an Organized Health Care Education/Training Program; ATTEND Student in an Organized Health Care Education/Training Program